=== PATIENT | female | born 1995 | race Caucasian/White ===

== ENCOUNTER → 2017-07-21 09:23 | Outpatient (CLI) | payer BC, MEDICAID, SELFPAY ==
--- NOTE | 2017-07-21 09:28 | US_ITS ---
US transvaginal HISTORY: Pelvic pain ITS.REASON: check for cysts and reason for pain ORDERING PHYSICIAN: Chele Lee MD PATIENT AGE: 21 years COMPARISON: None FINDINGS: UTERUS: The uterus measures 8 x 3 x 4 cm. Combined endometrial thickness is 3 mm. No uterine mass or abnormal fluid collection RIGHT OVARY: 3 x 2 cm containing follicles and a 1.5 cm cyst. Blood flow is present. LEFT OVARY: 2 x 2 cm containing a 1.6 cm cyst with blood flow noted CUL-DE-SAC FLUID: No cul-de-sac fluid apparent OTHER FINDINGS: None IMPRESSION: Small bilateral ovarian cyst otherwise negative pelvic ultrasound
== END ==
PROVIDERS: Family Provider Internal Medicine Adolescent Medicine; PCP Nurse Practitioner Family; Visit Provider Nurse Practitioner Obstetrics & Gynecology
DX: R10.32 Left lower quadrant pain (principal); N83.209 Unspecified ovarian cyst, unspecified side
CPT/HCPCS: 76830

== ENCOUNTER → 2017-08-23 12:32 | Outpatient (CLI) | payer BC, MEDICAID, SELFPAY ==
[2017-08-23 13:17] LABS: Amphetamine/Metha Screen,Urine Negative ng/mL (<1000); Barbiturates Screen,Urine Negative ng/mL (<200); Benzodiazepines Screen,Urine Negative ng/mL (200); Cannabinoid Screen,Urine Negative ng/mL (<50); Cocaine Screen,Urine Negative ng/g (<300); Methadone Screen,Urine Negative ng/mL (<300); Opiate Screen,Urine Negative ng/mL (<300); Phencyclidine Screen,Urine Negative ng/mL (<25)
[2017-08-23 13:20] LABS: Hemoglobin A1C 5.5 % (0.0-7.0)
[2017-08-23 13:21] LABS: Alanine Aminotransferase 23 U/L (12-78); Albumin Level 3.5 gm/dL (3.4-5.0); Albumin/Globulin Ratio 0.9 (1.1-1.8); Alkaline Phosphatase 89 U/L (46-116); Anion Gap 13.2 mEq/L (5-15); Aspartate Amino Transferase 10 U/L (15-37); Bilirubin,Total 0.5 mg/dL (0.2-1.0); Blood Urea Nitrogen 13 mg/dL (7-18); Calcium 8.9 mg/dL (8.5-10.1); Carbon Dioxide 26 mmol/L (21.0-32.0); Chloride 106 mmol/L (98-107); Cholesterol 178 mg/dL (140-200); Creatinine,Serum 0.83 mg/dL (0.55-1.02); Estimated Glomerular Filt Rate 86 ml/min (>60); GFR (African American) 104 ML/MIN (>60); Globulin 4.1 gm/dl (1.3-3.2); Glucose 109 mg/dL (74-106); HDL Cholesterol 44 mg/dL (29-89); LDL Cholesterol 98 mg/dL (0-130); Potassium 4.2 mmoL/L (3.5-5.1); Sodium 141 mmol/L (136-145); Thyroid Stimulating Hormone 2.52 uIU/ml (0.358-3.740); Total Protein,Serum 7.6 gm/dL (6.4-8.2); Triglycerides 179 mg/dL (30-200); VLDL Cholesterol 36 mg/dL (0-40)
[2017-08-23 13:25] LABS: Basophils # 0.1 K/mm3 (0-0.2); Basophils % 0.6 % (0.1-2.0); Eosinophils # 0.2 K/mm3 (0.0-0.4); Eosinophils % 1.8 % (0.1-12.0); Hematocrit 43.7 % (37.0-47.0); Hemoglobin 13.7 g/dL (12.2-16.2); Lymphocytes # 2.3 K/mm3 (0.7-4.5); Lymphocytes % 27.8 K/mm3 (10-50); Mean Corpuscular HGB Conc 31.4 g/dL (31.8-35.4); Mean Corpuscular Hemoglobin 28.6 pg (27.0-31.2); Mean Corpuscular Volume 91.1 fl (81-99); Mean Platelet Volume 7.2 fl (7.4-10.4); Monocytes # 0.3 K/mm3 (0.1-1.0); Monocytes % 3.4 % (1.7-9.3); Neutrophils # 5.5 K/mm3 (1.8-7.8); Neutrophils % 66.4 % (37.0-80.0); Platelet Count 337 K/mm3 (142-424); Red Cell Distribution Width 13.5 % (11.5-17.5); White Blood Count 8.3 K/mm3 (4.8-10.8)
[2017-08-23 14:22] LABS: Urine Pregnancy, HCG Qual. Negative (Negative)
== END ==
PROVIDERS: PCP Internal Medicine Adolescent Medicine; Visit Provider Nurse Practitioner Psychiatric/Mental Health
DX: F33.0 Major depressive disorder, recurrent, mild (principal)
CPT/HCPCS: 36415; 80053; 80061; 80305; 81025; 83036; 84443; 85025

== ENCOUNTER → 2017-09-22 14:33 | Outpatient (CLI) | payer BC, MEDICAID, SELFPAY ==
--- NOTE | 2017-09-22 14:37 | XR_ITS ---
XR shoulder RT min 2V HISTORY: ITS.REASON: Right shoulder pain ORDERING PHYSICIAN: Christian Jacinto MD PATIENT AGE: 22 years COMPARISON: None FINDINGS: No fracture or dislocation. No lytic or blastic change. There is normal mineralization. The joint spaces are well-preserved. No significant degenerative/arthritic changes. No erosive changes evident. IMPRESSION: Negative, no acute finding
== END ==
PROVIDERS: PCP Internal Medicine Adolescent Medicine; Visit Provider Orthopaedic Surgery
DX: M25.511 Pain in right shoulder (principal)
CPT/HCPCS: 73030

== ENCOUNTER 2017-10-29 14:30 | Outpatient (RCR) | payer BC, MEDICAID, SELFPAY ==
--- NOTE | 2017-08-10 11:44 | HMH.PTOPEV ---
Rehab Outpatient Evaluation Rehab OP Evaluation Start: 08/10/17 11:29 Freq: Status: Active Protocol: Document 08/10/17 11:30 RMWILLIS (Rec: 08/10/17 11:43 [id number] Electronically Signed By Starla Robert OT 08/10/17 11:30 Outpatient Therapy Subjective History Subjective History Pt is a 21 year old female who reports to therapy for initial evaluation to right shoulder. Pt reports her pain and decreased AROM at right shoulder began on 07/29/17. Pt does not recall a specific injury causing pain or decreased function in right UE . Initially pt thought she had slept on the right shoulder in an awkward position, but the pain has continuously become worse. Pt also reports her arm and hand has swelled causing her fingers to turn purple . Pt did not appear to have much swelling today. Pt does demonstrate with decreased AROM and strength at Right shoulder. Pt will continue to be seen twice a week in order to address these deficits. Chief Complaint Pain Stiff Swelling Symptom Type Ache Throb Sharp Stabbing Burning Symptoms Relieved By Nothing Symptoms Aggravated By Physical Activity Lifting Prior Functional Limitations None Current Functional Limitations Reaching Lifting Housework Dressing Driving Sleeping Recreation Activity Symptom Description Constant and Continuous Constant but Variable Level of pain today (0-10) 6 Pain scale - at its best (0-10) 4 Pain scale - at its worst (0-10) 10 Shoulder/Elbow Eval Shoulder Objective Measurements Palpation Tenderness tenderness shoulder exam standard right tenderness over the bicipital tendon right shoulder exam stand
== END 2017-10-29 14:31 | disposition home or self-care (01) ==
LOC: OT 14:30
PROVIDERS: Family Provider Internal Medicine Adolescent Medicine; PCP Nurse Practitioner Family; Visit Provider Internal Medicine Adolescent Medicine
DX: M75.81 Other shoulder lesions, right shoulder (principal)
CPT/HCPCS: 97014; 97033; 97035; 97110; 97165; G0283

== ENCOUNTER → 2018-07-05 13:06 | Outpatient (POV) | payer BC, MEDICAID, SELFPAY | PROVIDERS: Visit Provider Dermatology | DX: Z00.00 Encounter for general adult medical examination without abnormal findings (principal) ==

== ENCOUNTER → 2018-08-31 13:24 | Outpatient (CLI) | payer BC, MEDICAID, SELFPAY ==
[2018-08-31 14:02] LABS: Basophils % 0.5 % (0.1-2.0); Eosinophils # 0.1 K/mm3 (0.0-0.4); Eosinophils % 1.7 % (0.1-12.0); Hematocrit 42.1 % (37.0-47.0); Hemoglobin 13.4 g/dL (12.2-16.2); Lymphocytes # 2.8 K/mm3 (0.7-4.5); Lymphocytes % 34.2 % (10-50); Mean Corpuscular HGB Conc 31.8 g/dL (31.8-35.4); Mean Corpuscular Hemoglobin 28.6 pg (27.0-31.2); Mean Corpuscular Volume 89.7 fl (81-99); Mean Platelet Volume 6.8 fl (7.4-10.4); Monocytes # 0.3 K/mm3 (0.1-1.0); Monocytes % 3.6 % (1.7-9.3); Neutrophils # 4.9 K/mm3 (1.8-7.8); Neutrophils % 60.1 % (37.0-80.0); Platelet Count 357 K/mm3 (142-424); Red Blood Count 4.69 M/mm3 (4.20-5.40); Red Cell Distribution Width 13.8 % (11.5-17.5); White Blood Count 8.2 K/mm3 (4.8-10.8)
[2018-08-31 14:59] LABS: Alanine Aminotransferase 25 U/L (12-78); Albumin Level 3.2 gm/dL (3.4-5.0); Albumin/Globulin Ratio 0.9 (1.1-1.8); Alkaline Phosphatase 87 U/L (46-116); Anion Gap 13.1 mEq/L (5-15); Aspartate Amino Transferase 17 U/L (15-37); Bilirubin,Total 0.6 mg/dL (0.2-1.0); Blood Urea Nitrogen 15 mg/dL (7-18); Carbon Dioxide 26 mmol/L (21.0-32.0); Chloride 106 mmol/L (98-107); Creatinine,Serum 0.77 mg/dL (0.55-1.02); Estimated Glomerular Filt Rate 93 ml/min (>60); GFR (African American) 112 ML/MIN (>60); Globulin 3.6 gm/dl (1.3-3.2); Glucose 102 mg/dL (74-106); Potassium 4.1 mmoL/L (3.5-5.1); Sodium 141 mmol/L (136-145); Thyroid Stimulating Hormone 4.09 uIU/ml (0.358-3.740); Total Protein,Serum 6.8 gm/dL (6.4-8.2)
== END ==
PROVIDERS: Visit Provider Nurse Practitioner Family
DX: R42 Dizziness and giddiness (principal); R06.02 Shortness of breath
CPT/HCPCS: 36415; 80053; 84443; 85025

== ENCOUNTER → 2018-10-28 13:18 | Outpatient (CLI) | payer BC, MEDICAID, SELFPAY ==
[2018-10-28 15:27] LABS: Thyroid Stimulating Hormone 2.87 uIU/ml (0.358-3.740)
== END ==
PROVIDERS: Visit Provider Nurse Practitioner Family
DX: R79.89 Other specified abnormal findings of blood chemistry (principal)
CPT/HCPCS: 36415; 84443

== ENCOUNTER → 2018-11-14 16:02 | Outpatient (CLI) | payer BC, MEDICAID, SELFPAY ==
--- NOTE | 2018-11-14 16:16 | XR_ITS ---
XR foot LT min 3V HISTORY: ITS.REASON: ORTEGA FOOT PAIN ORDERING PHYSICIAN: Jose Brunner MD PATIENT AGE: 23 years COMPARISON: None FINDINGS: No fracture or dislocation. No lytic or blastic change. There is normal mineralization.. The joint spaces are well-preserved. No significant degenerative/arthritic changes. No erosive changes evident. IMPRESSION: Negative, no acute finding
--- NOTE | 2018-11-14 16:16 | XR_ITS ---
XR foot RT min 3V HISTORY: ITS.REASON: OTREGA FOOT PAIN ORDERING PHYSICIAN: Jose Brunner MD PATIENT AGE: 23 years COMPARISON: None FINDINGS: No fracture or dislocation. No lytic or blastic change. There is normal mineralization.. The joint spaces are well-preserved. No significant degenerative/arthritic changes. No erosive changes evident. IMPRESSION: Negative, no acute finding
== END ==
PROVIDERS: PCP Internal Medicine Adolescent Medicine; Visit Provider Internal Medicine Adolescent Medicine
DX: M79.672 Pain in left foot (principal); M79.671 Pain in right foot
CPT/HCPCS: 73630

== ENCOUNTER → 2019-01-20 13:48 | Outpatient (CLI) | payer BC, MEDICAID, SELFPAY ==
[2019-01-20 15:46] LABS: HCG,Quantitative 0 mIU/mL
== END ==
PROVIDERS: Visit Provider Nurse Practitioner Family
DX: N91.2 Amenorrhea, unspecified (principal)
CPT/HCPCS: 36415; 84702

== ENCOUNTER → 2019-05-15 12:43 | Outpatient (CLI) | payer BC, OTHER, SELFPAY ==
[2019-05-16 10:32] LABS: Progesterone 0.6 ng/mL (.)
== END ==
PROVIDERS: Visit Provider Obstetrics & Gynecology
DX: E28.2 Polycystic ovarian syndrome (principal)
CPT/HCPCS: 36415; 84144

== ENCOUNTER → 2019-06-05 13:48 | Outpatient (CLI) | payer BC, OTHER, SELFPAY ==
[2019-06-08 05:21] LABS: Progesterone 21.3 ng/mL (.)
== END ==
PROVIDERS: Visit Provider Obstetrics & Gynecology
DX: N97.9 Female infertility, unspecified (principal)
CPT/HCPCS: 36415; 84144

== ENCOUNTER → 2019-07-03 14:47 | Outpatient (CLI) | payer BC, OTHER, SELFPAY ==
[2019-07-05 18:17] LABS: Progesterone 11.4 ng/mL (.)
== END ==
PROVIDERS: Visit Provider Obstetrics & Gynecology
DX: N97.9 Female infertility, unspecified (principal)
CPT/HCPCS: 36415; 84144

== ENCOUNTER → 2019-08-16 13:24 | Outpatient (CLI) | payer BC, OTHER, SELFPAY ==
--- NOTE | 2019-08-16 13:50 | US_ITS ---
PROCEDURE: US OB TRANSVAGINAL CLINICAL INDICATION: F/U ? ETOPIC PREG COMPARISON: US OB TRANSVAGINAL from 08/14/2019 FINDINGS: The uterus has an unremarkable appearance measuring 9 x 4 x 5 cm with a combined endometrial thickness of 1 cm. Previously endometrium measured 1.3 cm. No intrauterine gestational sac is evident. There remains a dominant right ovarian cyst at 5 cm. Blood flow is present in the right ovary. Small cysts are present in the left over the largest at 2 cm. Blood flow is present in the left ovary. There is a small amount of fluid in the cul-de-sac. IMPRESSION: No intrauterine gestational sac apparent. There remains a dominant right ovarian cyst with bilateral ovarian blood flow and a small amount of fluid in the cul-de-sac Dictated by: Darek Krishnamurthy MD 08/17/2019 13:15 Electronically signed by Darek Krishnamurthy MD in [place] 08/17/2019 13:15
[2019-08-16 15:11] LABS: HCG,Quantitative 53 mIU/ml (0-5.42)
== END ==
PROVIDERS: PCP Internal Medicine Adolescent Medicine; Visit Provider Emergency Medicine
DX: R10.32 Left lower quadrant pain (principal)
CPT/HCPCS: 36415; 76817; 84702

== ENCOUNTER → 2019-11-10 14:42 | Outpatient (CLI) | payer BC, OTHER, SELFPAY ==
[2019-11-12 07:45] LABS: Progesterone 12.2 ng/mL (.)
== END ==
PROVIDERS: Visit Provider Obstetrics & Gynecology
DX: Z00.00 Encounter for general adult medical examination without abnormal findings (principal)
CPT/HCPCS: 36415; 84144

== ENCOUNTER 2019-11-23 13:43 | Emergency (ER) | payer BC, OTHER, SELFPAY ==
[2019-11-23 13:45] VITALS: BP 144/84; PULSE 107; RESP 18; TEMP 36.7; O2SAT 97; BMI 40.2
--- NOTE | 2019-11-23 13:55 | HMH.EDGENADL ---
ED Disposition Clinical Impression: Cramping affecting , antepartum Disposition: Home, Self-Care Condition on Discharge: Good Additional Instructions: Follow-up with your road machine operator on Wednesday as scheduled. Return to the emergency room if any severe pain or heavy bleeding. Referrals: Jose Brunner MD [Primary Care Provider] - - Critical Care Critical Care Time: No Attestation: On 11/23/19, the high probability of a clinically significant, sudden or life threatening deterioration of the following system(s) required my full and direct attention, intervention and personal management. The time I documented below is in addition to time spent performing reported procedures but includes the following listed in this critical care notation. Medical Decision Making - Jim Inquiry Pt receiving controlled substance: No Vital Signs: 11/23/19 13:45 Temperature 98.1 F Temperature Source Oral Pulse Rate [Right] 107 H Respiratory Rate 18 Blood Pressure [Right Arm] 144/84 H Blood Pressure Mean [Right Arm] 104 02 Sat by Pulse Oximetry 97 - Lab Data Lab Results 11/23/19 13:54: Urine Color Yellow, Urine Appearance Clear, Urine pH 7.0, Ur Specific [place] 1.025, Urine Protein Negative, Urine Glucose (UA) Negative, Urine Ketones Trace, Urine Blood Negative, Urine Nitrate Negative, Urine Bilirubin Negative, Urine Urobilinogen 0.2, Ur Leukocyte Esterase Negative, Urine RBC Occasional, Urine WBC Occasional, Ur Squamous Epith Cells 3-5, Amorphous Sediment 1+, Urine Bacteria None 11/23/19 13:54: Urine HCG, Qual Positive 11/23/19 14:02: WBC 10.1, RBC 4.83, Hgb 14.3, Hct 42.5, MCV 88.0, MCH 29.6, MCHC 33.7, RDW 13.4, Plt Count 341, MPV 6.6 L, Neut % (Auto) 68.3, Lymph % (Auto) 27.8, [place] % (Auto) 2.6, Eos % (Auto) 0.8, Baso % (Auto) 0.6, Neut # (Auto) 6.9, Lymph # (Auto) 2.8, [place] # (Auto) 0.3, Eos # (Auto) 0.1, Baso # (Auto) 0.1 11/23/19 14:02: Sodium 138, Potassium 3.7, Chloride 107, Carbon Dioxide 22, Anion Gap 12.7, BUN 9, Creatinine 0.60, Estimated Creat Clear 228, Estimated GFR 123, Est GFR ( Amer) 149, Glucose 122 H, Calcium 9.3, Total Bilirubin 0.7, AST 26, ALT 22, Alkaline Phosphatase 95, Total Protein 7.1, Albumin 4.1, Globulin 3.0, Albumin/Globulin Ratio 1.4, HCG, Quant 309 H Result diagrams: 11/23/19 14:02 11/23/19 14:02 Orders (Tests/Meds): ORDERS Category Date Time Status US OB transvaginal Stat Ultrasound 11/23/19 14:31 Taken - US Data US Images: Pelvis Findings Narrative: As per [facility] procedure, ultrasound report received from fresh foods technician: Negative, nothing in endometrium, no signs of ectopic General Adult HPI - General Stated complaint: 5 weeks preg some cramping low grade fever Time Seen by Provider: 11/23/19 13:55 - History of Present Illness HPI narrative: Patient states she is 5 weeks gestation . Pelvic cramping that started about 2 nights ago. No bleeding. Has a sensation of vaginal pressure. Also noted temperature of 99.3 for the past day. No URI symptoms or UTI symptoms. 3, para 1, recent miscarriage in August. States that she called her road machine operator in [place], she has an appointment on Wednesday, but was told to come into the emergency room to be checked. - Related Data Home Medications Medication Instructions Recorded Confirmed trazodone 50 mg tablet 100 mg PO QHS 09/22/17 03/31/19 lamotrigine 100 mg tablet 100 mg PO BID #60 tab 12/08/18 03/31/19 Allergies Allergy/AdvReac Type Severity Reaction Status Date / Time prochlorperazine Allergy Unknown Verified 04/10/19 10:52 [From Compazine] promethazine Allergy Unknown Verified 04/10/19 10:52 [facility] History - Hepatitis A Screen Attestation statement:: This patient has been screened for Hepatitis A risk factors. I have reviewed the patient's past medical history: Yes Medical History: Reports:: Anxiety, Asthma, Depression Denies:: Cancer, Diabetes Mellitu
[2019-11-23 14:14] LABS: Microscopic, Urine URINE MICROSCOPIC (MICROSCOPIC)
[2019-11-23 14:16] LABS: Appearance,Urine CLEAR (Clear); Bilirubin,Urine Negative (Negative); Blood, Urine Negative (Negative); Color,Urine YELLOW (Yellow); Glucose,Urine (UA) Negative (Negative); Ketones,Urine TRACE (Negative); Leukocyte Esterase,Urine Negative (Negative); Nitrate,Urine Negative (Negative); Protein,Urine Negative (Negative); Specific Gravity, Urine 1.025 (1.005-1.030); Urobilinogen,Urine 0.2 EU/dl (0.2)
[2019-11-23 14:17] LABS: Urine Pregnancy, HCG Qual. Positive (Negative)
[2019-11-23 14:20] LABS: Chloride 107 mmol/L (98-107); Potassium 3.7 mmoL/L (3.5-5.1); Sodium 138 mmol/L (136-145)
[2019-11-23 14:21] LABS: Basophils # 0.1 K/mm3 (0-0.2); Basophils % 0.6 % (0.1-2.0); Eosinophils # 0.1 K/mm3 (0.0-0.4); Eosinophils % 0.8 % (0.1-12.0); Hematocrit 42.5 % (37.0-47.0); Hemoglobin 14.3 g/dL (12.2-16.2); Lymphocytes # 2.8 K/mm3 (0.7-4.5); Lymphocytes % 27.8 % (10-50); Mean Corpuscular HGB Conc 33.7 g/dL (31.8-35.4); Mean Corpuscular Hemoglobin 29.6 pg (27.0-31.2); Mean Platelet Volume 6.6 fl (7.4-10.4); Monocytes # 0.3 K/mm3 (0.1-1.0); Monocytes % 2.6 % (1.7-9.3); Neutrophils # 6.9 K/mm3 (1.8-7.8); Neutrophils % 68.3 % (37.0-80.0); Platelet Count 341 K/mm3 (142-424); Red Blood Count 4.83 M/mm3 (4.20-5.40); Red Cell Distribution Width 13.4 % (11.5-17.5); White Blood Count 10.1 K/mm3 (4.8-10.8)
[2019-11-23 14:22] LABS: Blood Urea Nitrogen 9 mg/dl (7-17); Creatinine Clearance Estimated 228 mL/min (50-200); Estimated Glomerular Filt Rate 123 ml/min (>60); GFR (African American) 149 ML/MIN (>60)
[2019-11-23 14:23] LABS: Alanine Aminotransferase 22 U/L (12-78); Albumin Level 4.1 g/dl (3.5-5.0); Albumin/Globulin Ratio 1.4 (1.1-1.8); Alkaline Phosphatase 95 U/L (38-126); Anion Gap 12.7 mEq/L (5-15); Aspartate Amino Transferase 26 U/L (14-36); Bilirubin,Total 0.7 mg/dl (0.2-1.3); Calcium 9.3 mg/dl (8.4-10.2); Carbon Dioxide 22 mmol/L (22.0-30.0); Glucose 122 mg/dl (74-100); Total Protein,Serum 7.1 g/dl (6.3-8.2)
[2019-11-23 14:26] LABS: Amorphous Sediment,Urine 1+ /lpf; RBC,Urine Occasional #/hpf (0-3); WBC,Urine Occasional #/hpf (0-3)
--- NOTE | 2019-11-23 14:31 | US_ITS ---
PROCEDURE: US OB TRANSVAGINAL CLINICAL INDICATION: cramping, , r/o ectopic COMPARISON: US OB TRANSVAGINAL from 08/16/2019 FINDINGS: No intrauterine gestational sac is evident. The endometrium is thickened 15 mm. The left ovary is 3.7 x 3.5 cm and contains a 16 mm complex cyst and other small follicles. Blood flow is present. Right ovary is 3 2 cm. Blood flow noted. No cul-de-sac fluid evident IMPRESSION: No intrauterine gestation apparent. In may be too early to see an intrauterine gestation. The endometrium is thickened. Recommend serial beta HCGs as well as follow-up ultrasound. Dictated by: Darek Krishnamurthy MD 11/23/2019 16:35 Electronically signed by Darek Krishnamurthy MD in [place] 11/23/2019 16:35
[2019-11-23 14:40] LABS: HCG,Quantitative 309 mIU/ml (0-5.42)
--- NOTE | 2019-11-23 14:52 | PC.NURSE ---
Pt to US
[2019-11-23 15:48] VITALS: BP 132/85; PULSE 100; RESP 20; TEMP 36.8; O2SAT 98
== END 2019-11-23 15:49 | disposition home or self-care (01) ==
PROVIDERS: Emergency Provider Emergency Medicine; PCP Internal Medicine Adolescent Medicine
DX: O26.899 Other specified pregnancy related conditions, unspecified trimester (principal); F41.8 Other specified anxiety disorders
CPT/HCPCS: 76817; 80053; 81001; 81025; 84702; 85025; 99283

== ENCOUNTER 2019-12-09 00:09 | Emergency (ER) | payer BC, OTHER, SELFPAY ==
[2019-12-09 00:18] VITALS: BP 128/82; PULSE 109; RESP 16; TEMP 37; O2SAT 97; BMI 41.5
[2019-12-09 00:27] LABS: Microscopic, Urine URINE MICROSCOPIC (MICROSCOPIC)
[2019-12-09 00:32] LABS: Appearance,Urine CLEAR (Clear); Bilirubin,Urine Negative (Negative); Blood, Urine 1+ (Negative); Color,Urine YELLOW (Yellow); Glucose,Urine (UA) Negative (Negative); Ketones,Urine Negative (Negative); Leukocyte Esterase,Urine TRACE (Negative); Nitrate,Urine Negative (Negative); Protein,Urine Negative (Negative); Urine Pregnancy, HCG Qual. Positive (Negative); Urobilinogen,Urine 0.2 EU/dl (0.2)
--- NOTE | 2019-12-09 00:38 | US_ITS ---
PROCEDURE: US OB TRANSVAGINAL Patient Age:24Y CLINICAL INDICATION: Vag bleeding w/ cramping COMPARISON: US OB TRANSVAGINAL from 11/23/2019 FINDINGS: Single early viable intrauterine gestation.. Yolk sac embryo heart flicker noted and documented. CRL = 0.44 cm = 6 weeks 1 day. Heart rate = 109 BPM. Yolk sac 0.43 cm. Average ultrasound age = 6 weeks 1 day With this the ultrasound DAWN = 08/02/2020 Gestational age = 7 weeks 0 day. Based on LMP 10/21/2019 Right ovary appears normal. 2.3 x 1.7 x 2.4 cm Left ovary 2.9 x 2.65 x 2.6 cm. Normal size with Probable corpus luteum cyst noted left ovary of measures up to 1.4 cmx 1.32 x 1.26 cm. Good flow to both ovaries. No free fluid cul-de-sac. Uterus appears normal in size with cervix long and closed..-the gestational sac appears to be towards superior portion of the uterus .. IMPRESSION: Early single viable intrauterine gestation. Average Ultrasound Age /& CRL = 6 weeks 1 day Ovaries appear normal with normal blood flow Probable corpus luteum cyst measure up to 1.4 cm at left ovary Dictated by: Suleman Dowling MD 12/10/2019 18:34 Electronically signed by Suleman Dowling MD in [place] 12/10/2019 18:34
--- NOTE | 2019-12-09 00:41 | HMH.EDPREG ---
ED Disposition Clinical Impression: Qualifiers: Weeks of gestation: less than 8 weeks Qualified Code(s): Z3A.01 - Less than 8 weeks gestation of Disposition: Home, Self-Care Condition on Discharge: Good Instructions: DI for Vaginal Bleeding During Additional Instructions: see ob for follow up Referrals: Jose Brunner MD [Primary Care Provider] - - Critical Care Critical Care Time: No Attestation: On 12/09/19, the high probability of a clinically significant, sudden or life threatening deterioration of the following system(s) required my full and direct attention, intervention and personal management. The time I documented below is in addition to time spent performing reported procedures but includes the following listed in this critical care notation. Medical Decision Making - Medical Records Medical records reviewed: Yes: I reviewed the patient's medical records. - Jim Inquiry Pt receiving controlled substance: No Vital Signs: 12/09/19 00:18 Temperature 98.6 F Temperature Source Oral Pulse Rate [Right] 109 H Respiratory Rate 16 Blood Pressure [Right Arm] 128/82 Blood Pressure Mean [Right Arm] 97 Blood Pressure Source [Right Arm] Automatic Cuff Blood Pressure Position [Right Arm] Sitting 02 Sat by Pulse Oximetry 97 Oxygen Delivery Method Room Air - Lab Data Lab results reviewed: Yes: I reviewed the patient's lab results. Lab Results 12/09/19 00:20: Urine Color Yellow, Urine Appearance Clear, Urine pH 6.0, Ur Specific [place] 1.020, Urine Protein Negative, Urine Glucose (UA) Negative, Urine Ketones Negative, Urine Blood 1+, Urine Nitrate Negative, Urine Bilirubin Negative, Urine Urobilinogen 0.2, Ur Leukocyte Esterase Trace, Urine RBC 5-10, Urine WBC 10-20, Ur Squamous Epith Cells 5-10 12/09/19 00:20: Urine HCG, Qual Positive 12/09/19 00:36: WBC 10.5, RBC 4.37, Hgb 13.1, Hct 38.8, MCV 88.7, MCH 29.9, MCHC 33.8, RDW 13.4, Plt Count 307, MPV 7.1 L, Neut % (Auto) 57.6, Lymph % (Auto) 36.1, [place] % (Auto) 3.7, Eos % (Auto) 2.1, Baso % (Auto) 0.5, Neut # (Auto) 6.1, Lymph # (Auto) 3.8, [place] # (Auto) 0.4, Eos # (Auto) 0.2, Baso # (Auto) 0.1 12/09/19 00:36: Sodium 135 L, Potassium 3.7, Chloride 103, Carbon Dioxide 25, Anion Gap 10.7, BUN 8, Creatinine 0.60, Estimated Creat Clear 109, Estimated GFR 123, Est GFR ( Amer) 149, Glucose 121 H, Calcium 9.4, Total Bilirubin 0.3, AST 19, ALT 16, Alkaline Phosphatase 89, Total Protein 6.7, Albumin 4.2, Globulin 2.5, Albumin/Globulin Ratio 1.7, HCG, Quant [id number] H Result diagrams: 12/09/19 00:36 12/09/19 00:36 Orders (Tests/Meds): ORDERS Category Date Time Status Urine Culture Stat Micro 12/09/19 00:20 Received US OB transvaginal Stat Ultrasound 12/09/19 00:38 Ordered - US Data US Images: Pelvis ED US Reviewed: Yes: I discussed the US results w/the radiologist Findings Narrative: iup 6 weeks 1 day HPI - General Chief complaint: Vaginal Bleeding Stated complaint: 7 Weeks bleeding and cramping Time Seen by Provider: 12/09/19 00:30 Mode of Arrival: Ambulatory Source of Information: Patient, Medical Record Limitations: No Limitations Description of Symptoms (Recalled from ER Triage Doc. by RN): Pt states she has blood when she wipes, states she is 7weeks preg. - History of Present Illness HPI Narrative: pt with blood on tissue MD Complaint: vaginal bleeding Onset (ago): hour(s) Consistency: intermittent Severity: mild Associated symptoms: denies other symptoms Vaginal bleeding: light : yes Date of Last Menstrual Period: na - Related Data Blood Type: O (+) positive Para: 1 Home Medications Medication Instructions Recorded Confirmed Prenat 115/Iron Fum/Folic/Dss 1 each PO DAILY 12/09/19 12/09/19 [ 19 Tablet] Allergies Allergy/AdvReac Type Severity Reaction Status Date / Time prochlorperazine Allergy Unknown Verified 04/10/19 10:52 [From Compazin
[2019-12-09 00:45] LABS: Basophils # 0.1 K/mm3 (0-0.2); Basophils % 0.5 % (0.1-2.0); Eosinophils # 0.2 K/mm3 (0.0-0.4); Eosinophils % 2.1 % (0.1-12.0); Hematocrit 38.8 % (37.0-47.0); Hemoglobin 13.1 g/dL (12.2-16.2); Lymphocytes # 3.8 K/mm3 (0.7-4.5); Lymphocytes % 36.1 % (10-50); Mean Corpuscular HGB Conc 33.8 g/dL (31.8-35.4); Mean Corpuscular Hemoglobin 29.9 pg (27.0-31.2); Mean Corpuscular Volume 88.7 fl (81-99); Mean Platelet Volume 7.1 fl (7.4-10.4); Monocytes # 0.4 K/mm3 (0.1-1.0); Monocytes % 3.7 % (1.7-9.3); Neutrophils # 6.1 K/mm3 (1.8-7.8); Neutrophils % 57.6 % (37.0-80.0); Platelet Count 307 K/mm3 (142-424); Red Blood Count 4.37 M/mm3 (4.20-5.40); Red Cell Distribution Width 13.4 % (11.5-17.5); White Blood Count 10.5 K/mm3 (4.8-10.8)
--- NOTE | 2019-12-09 00:55 | PC.NURSE ---
pt transported to radiology via wheelchair.
[2019-12-09 00:56] LABS: Alanine Aminotransferase 16 U/L (12-78); Albumin Level 4.2 g/dl (3.5-5.0); Albumin/Globulin Ratio 1.7 (1.1-1.8); Alkaline Phosphatase 89 U/L (38-126); Anion Gap 10.7 mEq/L (5-15); Aspartate Amino Transferase 19 U/L (14-36); Bilirubin,Total 0.3 mg/dl (0.2-1.3); Blood Urea Nitrogen 8 mg/dl (7-17); Calcium 9.4 mg/dl (8.4-10.2); Carbon Dioxide 25 mmol/L (22.0-30.0); Chloride 103 mmol/L (98-107); Creatinine Clearance Estimated 109 mL/min (50-200); Estimated Glomerular Filt Rate 123 ml/min (>60); GFR (African American) 149 ML/MIN (>60); Globulin 2.5 g/dL (1.3-3.2); Glucose 121 mg/dl (74-100); Potassium 3.7 mmoL/L (3.5-5.1); Sodium 135 mmol/L (136-145); Total Protein,Serum 6.7 g/dl (6.3-8.2)
[2019-12-09 01:13] LABS: HCG,Quantitative 7689 mIU/ml (0-5.42)
--- NOTE | 2019-12-09 01:18 | PC.NURSE ---
pt returned from ultrasound.
--- NOTE | 2019-12-09 01:25 | PC.NURSE ---
RANDALL TEMPLETON AT BEDSIDE.
[2019-12-09 01:34] VITALS: BP 126/76; PULSE 98; RESP 16; TEMP 37; O2SAT 98
== END 2019-12-09 01:37 | disposition home or self-care (01) ==
PROVIDERS: Emergency Provider Emergency Medicine; PCP Internal Medicine Adolescent Medicine
DX: O20.9 Hemorrhage in early pregnancy, unspecified (principal); Z3A.01 Less than 8 weeks gestation of pregnancy; F41.8 Other specified anxiety disorders; J45.909 Unspecified asthma, uncomplicated
CPT/HCPCS: 76817; 80053; 81001; 81025; 84702; 85025; 87086; 99283

== ENCOUNTER 2019-12-19 12:12 | Emergency (ER) | payer BC, OTHER, SELFPAY ==
[2019-12-19 12:13] VITALS: BP 156/95; PULSE 108; RESP 18; TEMP 37.1; O2SAT 96; BMI 40.8
[2019-12-19 12:31] LABS: Microscopic, Urine URINE MICROSCOPIC (MICROSCOPIC)
[2019-12-19 12:33] LABS: Appearance,Urine CLEAR (Clear); Bilirubin,Urine Negative (Negative); Blood, Urine 3+ (Negative); Color,Urine YELLOW (Yellow); Glucose,Urine (UA) Negative (Negative); Ketones,Urine Negative (Negative); Leukocyte Esterase,Urine 1+ (Negative); Nitrate,Urine Negative (Negative); Protein,Urine Negative (Negative); Specific Gravity, Urine 1.025 (1.005-1.030); Urobilinogen,Urine 0.2 EU/dl (0.2)
--- NOTE | 2019-12-19 12:41 | PC.NURSE ---
labs drawn and sent.
[2019-12-19 12:53] LABS: Amorphous Sediment,Urine Trace /lpf; Squamous Epithelial Cell,Urine 20-50 #/hpf (0-5)
[2019-12-19 12:56] VITALS: BP 121/79; PULSE 101
[2019-12-19 12:56] LABS: Basophils % 0.3 % (0.1-2.0); Eosinophils # 0.2 K/mm3 (0.0-0.4); Hematocrit 39.3 % (37.0-47.0); Hemoglobin 13.6 g/dL (12.2-16.2); Lymphocytes # 2.7 K/mm3 (0.7-4.5); Lymphocytes % 30.1 % (10-50); Mean Corpuscular HGB Conc 34.6 g/dL (31.8-35.4); Mean Corpuscular Hemoglobin 30.2 pg (27.0-31.2); Mean Corpuscular Volume 87.2 fl (81-99); Mean Platelet Volume 6.9 fl (7.4-10.4); Monocytes # 0.3 K/mm3 (0.1-1.0); Monocytes % 3.2 % (1.7-9.3); Neutrophils # 5.7 K/mm3 (1.8-7.8); Neutrophils % 64.4 % (37.0-80.0); Platelet Count 352 K/mm3 (142-424); Red Cell Distribution Width 13.6 % (11.5-17.5); White Blood Count 8.8 K/mm3 (4.8-10.8)
--- NOTE | 2019-12-19 13:03 | HMH.EDGENADL ---
ED Disposition Clinical Impression: Threatened miscarriage in early Disposition: Home, Self-Care Condition on Discharge: Good Instructions: DI for Threatened Additional Instructions: You have been evaluated for vaginal spotting in early . This could be a threatened miscarriage. Please follow-up with your A P MANAGER tomorrow as scheduled. You have incidentally been found to have bacteria in your urine. Please take Macrobid as prescribed. Prescriptions: Nitrofurantoin Monohyd/M-Cryst [Nitrofurantoin Reagan-Mcr 100 mg] 100 mg PO BID 5 Days #10 cap Prescription Printed Referrals: Jose Brunner MD [Primary Care Provider] - Time of Disposition: 13:48 - Critical Care Critical Care Time: No Attestation: On 12/19/19, the high probability of a clinically significant, sudden or life threatening deterioration of the following system(s) required my full and direct attention, intervention and personal management. The time I documented below is in addition to time spent performing reported procedures but includes the following listed in this critical care notation. Medical Decision Making - Medical Records Medical records reviewed: Yes: I reviewed the patient's medical records. - Jim Inquiry Pt receiving controlled substance: No Vital Signs: 12/19/19 12:13 12/19/19 12:56 12/19/19 14:50 Temperature 98.7 F 98.0 F Temperature Source Oral Oral Pulse Rate 101 H Pulse Rate [Right] 108 H 101 H Respiratory Rate 18 18 Blood Pressure 121/79 Blood Pressure [Right Arm] 156/95 H 121/79 Blood Pressure Mean [Right Arm] 115 93 Blood Pressure Source Automatic Cuff Blood Pressure Source [Right Arm] Automatic Cuff Blood Pressure Position Supine Blood Pressure Position [Right Arm] Supine 02 Sat by Pulse Oximetry 96 Oxygen Delivery Method Room Air Room Air - Lab Data Lab Results 12/19/19 12:20: Urine Color Yellow, Urine Appearance Clear, Urine pH 6.0, Ur Specific [place] 1.025, Urine Protein Negative, Urine Glucose (UA) Negative, Urine Ketones Negative, Urine Blood 3+, Urine Nitrate Negative, Urine Bilirubin Negative, Urine Urobilinogen 0.2, Ur Leukocyte Esterase 1+ A, Urine RBC 10-20, Urine WBC 10-20, Ur Squamous Epith Cells 20-50, Ur Renal Epithelial Cell 5-10, Amorphous Sediment Trace 12/19/19 12:37: WBC 8.8, RBC 4.50, Hgb 13.6, Hct 39.3, MCV 87.2, MCH 30.2, MCHC 34.6, RDW 13.6, Plt Count 352, MPV 6.9 L, Neut % (Auto) 64.4, Lymph % (Auto) 30.1, [place] % (Auto) 3.2, Eos % (Auto) 2.0, Baso % (Auto) 0.3, Neut # (Auto) 5.7, Lymph # (Auto) 2.7, [place] # (Auto) 0.3, Eos # (Auto) 0.2, Baso # (Auto) 0.0 12/19/19 12:37: Serum HCG, Qual Positive 12/19/19 12:37: HCG, Quant [id number] H Result diagrams: 12/19/19 12:37 Orders (Tests/Meds): ORDERS Category Date Time Status Urine Culture Stat Micro 12/19/19 12:20 Received Medical Decision Narrative: In summary this is a 24-year-old female presenting to the emergency department with lower abdominal cramping and vaginal spotting. Patient is tearful on arrival, slightly tachycardic and hypertensive. I believe this is due to anxiety. She was 6weeks by dates, doubt pre-eclampsia. Will obtain urine to assess for protein. Differential diagnoses include threatened miscarriage, hemorrhagic cystitis, urinary tract infection, implantation bleed, normal intrauterine . Given that patient is already had her confirmed by ultrasound, very low concern for an ectopic or heterotopic. Plan to obtain urinalysis and beta hCG. Urinalysis shows leukoesterase and few white blood cells. Will treat presumptively for asymptomatic bacteriuria, in the hopes that patient is still . No proteinuria. Other laboratory results unremarkable. No significant anemia. hCG positive. Patient counseled that this could be a threatened miscarriage. She currently does not have pain or significant bleeding. Scheduled to follow-up with her
[2019-12-19 13:08] LABS: HCG Qualitative, Serum Positive (Negative)
[2019-12-19 14:13] LABS: HCG,Quantitative 17659 mIU/ml (0-5.42)
[2019-12-19 14:50] VITALS: BP 121/79; PULSE 101; RESP 18; TEMP 36.7; O2SAT 98
== END 2019-12-19 14:51 | disposition home or self-care (01) ==
PROVIDERS: Emergency Provider Emergency Medicine; PCP Internal Medicine Adolescent Medicine
DX: O20.0 Threatened abortion (principal); Z3A.08 8 weeks gestation of pregnancy; J45.909 Unspecified asthma, uncomplicated
CPT/HCPCS: 81001; 84702; 84703; 85025; 87086; 99282; 99283

== ENCOUNTER 2020-05-19 09:58 | Emergency (ER) | payer BC, OTHER, SELFPAY ==
[2020-05-19 10:15] VITALS: BP 130/82; PULSE 98; RESP 14; TEMP 36.9; O2SAT 97; BMI 44.9
--- NOTE | 2020-05-19 10:48 | HMH.EDUTC ---
[facility] [place] Clinical Impression: Close exposure to COVID-19 virus Otitis media Qualifiers: Otitis media type: suppurative Chronicity: acute Laterality: right Recurrence: non-recurrent Spontaneous tympanic membrane rupture: without spontaneous rupture Qualified Code(s): H66.001 - Acute suppurative otitis media without spontaneous rupture of ear drum, right ear Disposition: Home, Self-Care Condition on Discharge: Good Instructions: Preventing the Spread of Coronavirus Discharge Instructions Additional Instructions: isolate until test results are known neg Prescriptions: cephALEXin [Keflex 500mg Cap] 500 mg PO BID 10 Days #20 cap Transmission Status: Pending to [id number] Referrals: Jose Brunner MD [Primary Care Provider] - Time of Disposition: 10:54 Medical Decision Making - Jim Inquiry Pt receiving controlled substance: No Vital Signs: 05/19/20 10:15 Temperature 98.5 F Temperature Source Oral Pulse Rate [Left Brachial] 98 H Respiratory Rate 14 Blood Pressure [Left Arm] 130/82 Blood Pressure Mean [Left Arm] 98 Blood Pressure Source [Left Arm] Automatic Cuff Blood Pressure Position [Left Arm] Sitting 02 Sat by Pulse Oximetry 97 Oxygen Delivery Method Room Air Orders (Tests/Meds): ORDERS Category Date Time Status Covid-19 Nasal PCR ([facility]) Routine Lab 05/19/20 10:13 Ordered [facility] [place] HPI - General Chief complaint: Urgent [facility] Stated complaint: covid exposure,SOA,sore throat,ear pain Time Seen by Provider: 05/19/20 10:49 Mode of Arrival: Ambulatory Source of Information: Patient Limitations: No Limitations Description of Symptoms (Recalled from Triage Doc. by RN): PATIENT REQUESTING COVID TEST D/T EXPOSURE. C/O COUGH, HEADACHE, DIARRHEA, AND NAUSEA X 1 WEEK HEENT Symptoms (Recalled from RN notes): No Resp Symptoms (Recalled from RN notes): No Skin Symptoms (Recalled from RN notes): No MS Symptoms (Recalled from RN notes): No Functional Status (Recalled from RN notes): WNL - History of Present Illness Provider Complaint: 24 yr old female presnets for covid test. pt had a exposer, states she has rt ear pain, soa( hx of asthma), sore throat and dirreaha for 4 days. - Related Data Home Medications Medication Instructions Recorded Confirmed Buspirone HCl [Buspar 5mg tablet] 5 mg PO DAILY 05/19/20 05/19/20 Escitalopram Oxalate [Lexapro] 20 mg PO DAILY 05/19/20 05/19/20 Previous Rx's Medication Instructions Recorded cephALEXin [Keflex 500mg Cap] 500 mg PO BID 10 Days #20 cap 05/19/20 Allergies Allergy/AdvReac Type Severity Reaction Status Date / Time prochlorperazine Allergy Unknown Verified 04/10/19 10:52 [From Compazine] promethazine Allergy Unknown Verified 04/10/19 10:52 - Worker's Comp Is this a Worker's Comp case?: No [facility] History - Hepatitis A Screen Drug use history?: No High risk sexual behaviors?: No History of sexually transmitted infection?: No Currently employed?: No Childcare worker?: No Do you have indoor plumbing?: Yes Do you have electricity?: Yes Attestation statement:: This patient has been screened for Hepatitis A risk factors. I have reviewed the patient's past medical history: Yes Medical History: Reports:: Anxiety, Asthma, Depression Denies:: Cancer, Diabetes Mellitus Type 1, Diabetes Mellitus Type 2, MRSA Comment: boardline personality disorder Other Surgeries: Yes: Amputation: No Fractures: No - Social History Smoking Status: Never smoker Alcohol Intake: never Substance Use Type: denies use Occupational Status: other Housing: house - Psychiatric History Pschychiatric History:: Reports:: Anxiety, Depression Family Hx:: Cancer, Diabetes, Thyroid Disorder, Anemia, Kidney Disease ROS Obtained: Yes All systems reviewed & no additional complaints, Yes Systems reviewed as appropriate & no additional complaints - Constitutional Constitutional: Reports system reviewed and no addition
[2020-05-19 11:04] VITALS: BP 130/82; PULSE 98; RESP 14; TEMP 36.9; O2SAT 97
== END 2020-05-19 11:05 | disposition home or self-care (01) ==
PROVIDERS: Emergency Provider Nurse Practitioner Family; PCP Internal Medicine Adolescent Medicine
DX: Z20.828 Contact with and (suspected) exposure to other viral communicable diseases (principal); H66.001 Acute suppurative otitis media without spontaneous rupture of ear drum, right ear; F41.8 Other specified anxiety disorders; Z79.899 Other long term (current) drug therapy
CPT/HCPCS: 99201; U0003

== ENCOUNTER → 2020-07-04 17:25 | Outpatient (CLI) | payer BC, OTHER, SELFPAY | PROVIDERS: PCP Internal Medicine Adolescent Medicine; Visit Provider Internal Medicine Adolescent Medicine | DX: G47.30 Sleep apnea, unspecified (principal); R06.83 Snoring; E66.9 Obesity, unspecified | CPT/HCPCS: 95806 ==

== ENCOUNTER 2020-07-14 17:37 | Emergency (ER) | payer BC, OTHER, SELFPAY ==
[2020-07-14 18:15] VITALS: BP 130/87; PULSE 84; RESP 14; TEMP 36.7; O2SAT 99; BMI 43.3
--- NOTE | 2020-07-14 18:40 | HMH.EDUTC ---
[facility] [place] Dis[place] Clinical Impression: Viral syndrome, Exposure to COVID-19 virus Pharyngitis Qualifiers: Pharyngitis/tonsillitis etiology: unspecified etiology Qualified Code(s): J02.9 - Acute pharyngitis, unspecified Disposition: Home, Self-Care Condition on Discharge: Good Instructions: DI for Pharyngitis/Tonsillopharyngitis -- Adult, Preventing the Spread of Coronavirus Discharge Instructions Additional Instructions: Drink plenty of fluids. Take tylenol for pain or fever. Return if you begin to have difficulty breathing. Follow up with your regular doctor. GO TO THE ER FOR ANY WORSENING SYMPTOMS Prescriptions: Benzonatate [Tessalon Perle 100mg Cap] 100 mg PO TIDP PRN #30 cap PRN Reason: Cough Transmission Status: Received by [id number] Azithromycin [Z-Bart 250mg Tab*] 250 mg PO UD DOSE PK #6 tab Transmission Status: Received by [id number] Referrals: Jayleen Leal APRN [Primary Care Provider] - Time of Disposition: 18:54 Medical Decision Making - Medical Records Medical records reviewed: No: I reviewed the patient's medical records. - Jim Inquiry Pt receiving controlled substance: No Vital Signs: 07/14/20 18:15 07/14/20 19:00 Temperature 98.0 F 98.0 F Temperature Source Oral Pulse Rate 84 Pulse Rate [Right Brachial] 84 Respiratory Rate 14 14 Blood Pressure 130/87 Blood Pressure [Right Arm] 130/87 Blood Pressure Mean [Right Arm] 101 Blood Pressure Source [Right Arm] Automatic Cuff Blood Pressure Position [Right Arm] Sitting 02 Sat by Pulse Oximetry 99 Oxygen Delivery Method Room Air [facility] [place] HPI - General Stated complaint: GUTIERREZ,fever.sick at stomach.covid test Time Seen by Provider: 07/14/20 18:40 Mode of Arrival: Ambulatory Source of Information: Patient Limitations: No Limitations Description of Symptoms (Recalled from Triage Doc. by RN): PATIENT C/O FEVER, CHILLS, VOMITING, HEADACHE AND RUNNY NOSE X 2 DAYS. REQUESTING COVID TEST HEENT Symptoms (Recalled from RN notes): Yes Resp Symptoms (Recalled from RN notes): No Skin Symptoms (Recalled from RN notes): No MS Symptoms (Recalled from RN notes): No Functional Status (Recalled from RN notes): WNL - History of Present Illness Provider Complaint: She states that for the past 3 days she has had a cough, low grade fever and nausea. She denies any known exposure to covid-19. - Related Data Home Medications Medication Instructions Recorded Confirmed Buspirone HCl [Buspar 5mg tablet] 5 mg PO DAILY 05/19/20 05/19/20 Escitalopram Oxalate [Lexapro] 20 mg PO DAILY 05/19/20 05/19/20 Previous Rx's Medication Instructions Recorded cephALEXin [Keflex 500mg Cap] 500 mg PO BID 10 Days #20 cap 05/19/20 Azithromycin [Z-Bart 250mg Tab*] 250 mg PO UD DOSE PK #6 tab 07/14/20 Benzonatate [Tessalon Perle 100mg 100 mg PO TIDP PRN #30 cap 07/14/20 Cap] Allergies Allergy/AdvReac Type Severity Reaction Status Date / Time prochlorperazine Allergy Unknown Verified 04/10/19 10:52 [From Compazine] promethazine Allergy Unknown Verified 04/10/19 10:52 - Worker's Comp Is this a Worker's Comp case?: No [facility] History - Hepatitis A Screen Drug use history?: No High risk sexual behaviors?: No History of sexually transmitted infection?: No Currently employed?: No Childcare worker?: No Do you have indoor plumbing?: Yes Do you have electricity?: Yes Attestation statement:: This patient has been screened for Hepatitis A risk factors. I have reviewed the patient's past medical history: Yes Medical History: Reports:: Anxiety, Asthma, Depression Denies:: Cancer, Diabetes Mellitus Type 1, Diabetes Mellitus Type 2, MRSA Comment: boardline personality disorder Other Surgeries: Yes: Amputation: No Fractures: No - Social History Smoking Status: Never smoker Alcohol Intake: never Substance Use Type: denies use Occupational Status: other Housing: house - Psychiatric History [facility]
[2020-07-14 19:00] VITALS: BP 130/87; PULSE 84; RESP 14; TEMP 36.7; O2SAT 99
== END 2020-07-14 19:03 | disposition home or self-care (01) ==
PROVIDERS: Emergency Provider Nurse Practitioner Family; PCP Nurse Practitioner Family
DX: Z20.822 Contact with and (suspected) exposure to COVID-19 (principal); B34.9 Viral infection, unspecified; J02.9 Acute pharyngitis, unspecified; F41.8 Other specified anxiety disorders; Z79.899 Other long term (current) drug therapy
CPT/HCPCS: 99202; G0463; U0003

== ENCOUNTER → 2020-08-12 11:41 | Outpatient (CLI) | payer BC, OTHER, SELFPAY ==
--- NOTE | 2020-08-12 12:22 | XR_ITS ---
PROCEDURE: XR FOOT WT BEARING LT 3V CLINICAL INDICATION: pain COMPARISON: CR FTR3 FOOT-RT-3 VIEWS from 02/08/2017 FINDINGS: No fracture or dislocation. No lytic or blastic change. There is normal mineralization. The joint spaces are well-preserved. No significant degenerative/arthritic changes. No erosive changes evident. Other findings:None. IMPRESSION: No acute findings. Dictated by: Darek Krishnamurthy MD 08/12/2020 14:34 Darek Krishnamurthy MD in [place] 08/12/2020 14:34
--- NOTE | 2020-08-12 12:22 | XR_ITS ---
PROCEDURE: XR FOOT WT BEARING RT 3V CLINICAL INDICATION: pain COMPARISON: CR FTR3 FOOT-RT-3 VIEWS from 02/08/2017 FINDINGS: No fracture or dislocation. No lytic or blastic change. There is normal mineralization. The joint spaces are well-preserved. No significant degenerative/arthritic changes. No erosive changes evident. Other findings:None. IMPRESSION: No acute findings. Dictated by: Darek Krishnamurthy MD 08/12/2020 14:34 Darek Krishnamurthy MD in [place] 08/12/2020 14:34
[2020-08-12 13:19] LABS: Coronavirus 19 IgG Antibody Negative (Negative); Coronavirus 19 IgM Antibody Negative (Negative)
== END ==
PROVIDERS: PCP Internal Medicine Adolescent Medicine; Visit Provider Nurse Practitioner Family
DX: Z01.818 Encounter for other preprocedural examination (principal); Z20.822 Contact with and (suspected) exposure to COVID-19; G47.33 Obstructive sleep apnea (adult) (pediatric); M79.672 Pain in left foot; M79.671 Pain in right foot
CPT/HCPCS: 36415; 73630; 86328; 95810

== ENCOUNTER 2020-08-20 09:49 | Emergency (ER) | payer BC, OTHER, SELFPAY ==
[2020-08-20 09:55] VITALS: BP 125/72; PULSE 103; RESP 20; TEMP 37.1; O2SAT 96; BMI 44.2
--- NOTE | 2020-08-20 10:29 | HMH.EDUTC ---
[facility] [place] Impression: Left shoulder pain Qualifiers: Chronicity: acute Qualified Code(s): M25.512 - Pain in left shoulder Disposition: Home, Self-Care Condition on Discharge: Good Instructions: Shoulder Tendinopathy, DI for Shoulder Tendinopathy Additional Instructions: Rest the extremity, Elevate the extremity as tolerated while you are resting. 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 Follow up with Dr. Prado (orthopedics) if you continue to have shoulder pain. I put in a referral but you need to call his office and schedule an appointment. Follow up with your regular doctor. GO TO THE ER FOR ANY WORSENING SYMPTOMS Referrals: Jose Brunner MD [Primary Care Provider] - Calvin Prado MD [Staff Physician] - Forms: Work/School Release Time of Disposition: 11:11 Medical Decision Making - Medical Records Medical records reviewed: No: I reviewed the patient's medical records. - Jim Inquiry Pt receiving controlled substance: No Vital Signs: 08/20/20 09:55 08/20/20 11:13 Temperature 98.7 F 98.7 F Temperature Source Oral Pulse Rate 103 H Pulse Rate [Right Brachial] 103 H Respiratory Rate 20 20 Blood Pressure 125/72 Blood Pressure [Right Arm] 125/72 Blood Pressure Mean [Right Arm] 89 Blood Pressure Source [Right Arm] Automatic Cuff Blood Pressure Position [Right Arm] Sitting 02 Sat by Pulse Oximetry 96 Oxygen Delivery Method Room Air - Radiology Data #1 Image(s): Shoulder Image Reviewed: Yes I reviewed the patient's radiology image, Yes I have reviewed radiologist's interpretation Preliminary Findings: Normal/NAD, No Fracture Seen PROCEDURE: XR SHOULDER LT MIN 2V CLINICAL INDICATION: PAIN COMPARISON: CR SHOULDCMRT XR shoulder RT min 2V from 09/22/2017 FINDINGS: No fracture or dislocation. No lytic or blastic change. There is normal mineralization. The joint spaces are well-preserved. No significant degenerative/arthritic changes. No erosive changes evident. Other findings:None. IMPRESSION: No acute findings. Dictated by: Darek Krishnamurthy MD 08/20/2020 11:28 Darek Krishnamurthy MD in [place] 08/20/2020 11:28 [facility] [place] - General Stated complaint: left shoulder, pain w/breathing&movement Time Seen by Provider: 08/20/20 10:29 - History of Present Illness Provider Complaint: She c/o left shoulder pain for the past 3 days. She denies any known injury. She states the pain is worse with moving the shoulder and deep breathing. She was started on steroids and meloxicam today by her wetlands conservation laborer for foot pain. - Related Data Home Medications Medication Instructions Recorded Confirmed Quetiapine Fumarate 50 mg PO QHS 08/20/20 08/20/20 Allergies Allergy/AdvReac Type Severity Reaction Status Date / Time prochlorperazine Allergy Unknown Verified 08/20/20 09:12 [From Compazine] promethazine Allergy Unknown Verified 08/20/20 09:12 [facility] History - Hepatitis A Screen Attestation statement:: This patient has been screened for Hepatitis A risk factors. I have reviewed the patient's past medical history: Yes Medical History: Reports:: Anxiety, Asthma, Depression Denies:: Cancer, Diabetes Mellitus Type 1, Diabetes Mellitus Type 2, MRSA Comment: boardline personality disorder Other Surgeries: Yes: , Dilation and Curettage Amputation: No Fractures: No Comment: oral surgery 2019 - Social History Smoking Status: Never smoker Alcohol Intake: never Substance Use Type: denies use Occupational Status: other Housing: house - Psychiatric History Pschychiatric History:: Reports:: Anxiety, Depression Family Hx:: Cancer, Diabetes, Thyroid Disorder, Anemia, Kidney Disease ROS Obtained: Yes All systems reviewed & no additional complaints - Constitutional Constitutional: Denies chills, Denies fever(s) - Musculoskeletal Musculoskeletal: Reports as per HPI - Integumentary/Breasts Skin/Breast: Denies r
--- NOTE | 2020-08-20 10:33 | XR_ITS ---
PROCEDURE: XR SHOULDER LT MIN 2V CLINICAL INDICATION: PAIN COMPARISON: CR SHOULDCMRT XR shoulder RT min 2V from 09/22/2017 FINDINGS: No fracture or dislocation. No lytic or blastic change. There is normal mineralization. The joint spaces are well-preserved. No significant degenerative/arthritic changes. No erosive changes evident. Other findings:None. IMPRESSION: No acute findings. Dictated by: Darek Krishnamurthy MD 08/20/2020 11:28 Darek Krishnamurthy MD in [place] 08/20/2020 11:28
[2020-08-20 11:13] VITALS: BP 125/72; PULSE 103; RESP 20; TEMP 37.1; O2SAT 96
== END 2020-08-20 11:16 | disposition home or self-care (01) ==
PROVIDERS: Emergency Provider Nurse Practitioner Family; PCP Internal Medicine Adolescent Medicine
DX: M25.512 Pain in left shoulder (principal); F41.8 Other specified anxiety disorders; J45.909 Unspecified asthma, uncomplicated; E66.9 Obesity, unspecified; Z68.41 Body mass index [BMI] 40.0-44.9, adult; Z79.899 Other long term (current) drug therapy
CPT/HCPCS: 73030; 99202; G0463

== ENCOUNTER → 2020-09-30 15:03 | Outpatient (CLI) | payer BC, OTHER, SELFPAY ==
[2020-09-30 16:56] VITALS: BMI 43.7
== END ==
PROVIDERS: PCP Internal Medicine Adolescent Medicine; Visit Provider Internal Medicine Adolescent Medicine
DX: Z71.3 Dietary counseling and surveillance (principal); E66.9 Obesity, unspecified; Z68.41 Body mass index [BMI] 40.0-44.9, adult
CPT/HCPCS: 97802

== ENCOUNTER 2020-10-07 11:00 | Outpatient (RCR) | payer BC, OTHER, SELFPAY ==
--- NOTE | 2020-09-05 11:54 | HMH.PTOPEV ---
PT Outpatient Evaluation Rehab PT Outpatient Evaluation Start: 09/05/20 11:34 Freq: Status: Active Protocol: Document 09/05/20 11:34 MEERA (Rec: 09/05/20 11:54 MEERA [id number]) Electronically Signed By Marshall Hernandez, PT 09/05/20 11:34 Outpatient Therapy Subjective History Subjective History Pt reports h/o chronic B plantar fasciitis for ~2 yrs. Pt reports steroid injections were benficial in 2019, however, recnt injections on 'did not seem to help'. Pt reports B heel area pain with referred pain into arches, with 'twitching and shooting pain'. Chief Complaint Pain Symptom Type Ache,Dull Symptoms Relieved By Rest/Positioning,Ice Symptoms Aggravated By Standing,Walking Prior Functional Limitations Standing,Walking Current Functional Limitations Standing,Walking Symptom Description Constant but Variable Level of pain today (0-10) 6 Pain scale - at its best (0-10) 5 Pain scale - at its worst (0-10) 8 Ankle/Foot Eval Gait Observation General Gait Pattern Observation Antalgic Gait Assistive Device Ambulation Assistive Device None Palpation Tenderness bilateral Ankle/Foot Palpation Findings Tenderness Ankle/Foot Palpation Overall Comment 3/4 bilateral plantar fascia insertion ROM Ankle/Foot Dorsiflexion w/Knee Extended 0-5 Active Range Motion (degrees) Ankle/Foot Plantar Flexion Active Range 0-70 of Motion (degrees) Ankle/Foot Eversion Active Range of 0-12 Motion (degrees) Ankle/Foot Inversion Active Range of 0-65 Motion (degrees) MMT Ankle Dorsiflexion Strength Grade 5 Normal Ankle Plantarflexion Strength Grade 5 Normal Foot Eversion Strength Grade 4 Good Foot Inversion Strength Grade 4 Good Outpatient Therapy Assessment Impairments Problems/Impairmments Palpation Tenderness,Impaired Range of Motion,Impaired Strength,Impaired Gait Pattern ,Impaired Walking,Impaired Standing,Subjective C/O Pain, Impaired Self Care/Self Management Prognosis Rehab Potential Fair Clinical Impression Consistent with Diagnosis Yes Short Term Goals Number of Weeks 4 Decreased Palpation Tenderness Yes: 1-2/4 Increase Strength Yes: 4+/5 Increase Ability to Walk Yes: 30min Increase Ability to [place]
--- NOTE | 2020-10-03 14:54 | HMH.RHREAS ---
Rehab Reassessment Rehab OP Re-assessment Start: 10/03/20 14:18 Freq: Status: Active Protocol: Document 10/03/20 14:18 MARIANGELYESICA (Rec: 10/03/20 14:53 MEERA [id number]) Electronically Signed By Marshall Hernandez, PT 10/03/20 14:18 Rehab Re-assessment Subjective Subjective PT REPORTS 0-2/10 B FOOT/HEEL PAIN ON VAS, AND FEELS 80-85% BETTER SINCE I EVAL Objective Objective Notes AROM: B DF 0-10, B PF 0-70, B INV 0-65, B EVR 0-15 MMT: DF 5/5, PF 5/5, INV 4-4+/ 5, EVR 4-4+/5 TTP: 1-2/4 B PLANTAR FASCIA Assessment Progress Assessment Progressing as Expected Assessment Notes IMPROVED ROM, STRENGTH, AND TTP Patient goals met STG'S 10/17 LTG'S 09/20 Goals Not Met STG'S 06/19, LTG'S 10/20 Plan Plan PT TO CONT. W/SKILLED P.T. TO MAKE FURTHER IMPROVEMENTS IN ROM, STRENGTH, AND TTP TO ALLOW FOR OPTIMAL FUNCTION Frequency of Therapy 2-3X/WK Duration of therapy 4-6WKS Time and Billing Re-Eval Time 15 Re-Eval Billing Units 1 PHYSICIAN CERTIFICATION: I certify the specified therapy services for Martha Chalres are required, authorized, and reviewed every 30 days.
== END 2020-10-07 11:05 | disposition home or self-care (01) ==
LOC: PT 11:00
PROVIDERS: PCP Internal Medicine Adolescent Medicine; Visit Provider Podiatrist
DX: M72.2 Plantar fascial fibromatosis; M79.671 Pain in right foot; M79.672 Pain in left foot
CPT/HCPCS: 20560; 97010; 97014; 97033; 97035; 97110; 97140; 97163; 97164; G0283

== ENCOUNTER → 2020-10-14 18:32 | Outpatient (CLI) | payer BC, OTHER, SELFPAY | PROVIDERS: PCP Internal Medicine Adolescent Medicine; Visit Provider Nurse Practitioner Family | DX: G47.33 Obstructive sleep apnea (adult) (pediatric) (principal); R00.0 Tachycardia, unspecified; R06.02 Shortness of breath; R53.83 Other fatigue | CPT/HCPCS: 94762 ==

== ENCOUNTER 2020-10-15 07:34 | Emergency (ER) | payer BC, OTHER, SELFPAY ==
[2020-10-15 07:35] VITALS: BP 127/81; PULSE 82; RESP 16; TEMP 37; O2SAT 98; BMI 42.5
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
[2020-10-15 08:15] VITALS: BP 110/74; PULSE 78; RESP 16; TEMP 36.6; O2SAT 98
== END 2020-10-15 08:16 | disposition home or self-care (01) ==
PROVIDERS: Emergency Provider Emergency Medicine; PCP Internal Medicine Adolescent Medicine
DX: M54.6 Pain in thoracic spine (principal); X50.0XXA Overexertion from strenuous movement or load, initial encounter; Y92.019 Unspecified place in single-family (private) house as the place of occurrence of the external cause; J45.901 Unspecified asthma with (acute) exacerbation; F41.8 Other specified anxiety disorders; Z79.899 Other long term (current) drug therapy; Z88.8 Allergy status to other drugs, medicaments and biological substances
CPT/HCPCS: 99281

== ENCOUNTER 2020-10-19 15:39 | Emergency (ER) | payer BC, OTHER, SELFPAY ==
[2020-10-19 16:13] VITALS: BP 131/79; PULSE 95; RESP 17; TEMP 36.9; O2SAT 98; BMI 44.6
--- NOTE | 2020-10-19 16:24 | HMH.EDUTC ---
[facility] [place] Disposition Clinical Impression: Asthma exacerbation Qualifiers: Asthma severity: unspecified severity Asthma persistence: unspecified Qualified Code(s): J45.901 - Unspecified asthma with (acute) exacerbation Disposition: Home, Self-Care Condition on Discharge: Good Instructions: Asthma -- Adult, DI for Asthma -- Adult Additional Instructions: Drink plenty of fluids. Take tylenol or ibuprofen for pain or fever. Take the medications as directed. Follow up with your regular doctor. GO TO THE ER FOR ANY WORSENING SYMPTOMS Prescriptions: Brompheniramine/Pseudoephed/Dm [Bromfed Dm Cough Syrup] 5 ml PO Q6HP PRN #240 syrup PRN Reason: Cough Transmission Status: Received by [facility] Cefdinir [Omnicef 300mg Capsule] 300 mg PO BID #20 cap Transmission Status: Received by [facility] predniSONE [Prednisone 20mg Tab] 20 mg PO BID 5 Days #10 tab Transmission Status: Received by [facility] Referrals: Jose Brunner MD [Primary Care Provider] - Time of Disposition: 16:51 Medical Decision Making - Medical Records Medical records reviewed: No: I reviewed the patient's medical records. - Jim Inquiry Pt receiving controlled substance: No Vital Signs: 10/19/20 16:13 10/19/20 16:52 Temperature 98.5 F 98.5 F Temperature Source Oral Pulse Rate 95 H Pulse Rate [Left] 95 H Respiratory Rate 17 17 Blood Pressure 131/79 Blood Pressure [Right Arm] 131/79 Blood Pressure Mean [Right Arm] 96 Blood Pressure Source [Right Arm] Automatic Cuff Blood Pressure Position [Right Arm] Sitting 02 Sat by Pulse Oximetry 98 Oxygen Delivery Method Room Air [facility] [place] HPI - General Stated complaint: congestion, sob, drainage Time Seen by Provider: 10/19/20 16:37 Mode of Arrival: Ambulatory Source of Information: Patient Limitations: No Limitations Description of Symptoms (Recalled from Triage Doc. by RN): Trouble breathing x 2 weeks. Pt has hx of asthma and thinks its related HEENT Symptoms (Recalled from RN notes): No Resp Symptoms (Recalled from RN notes): Yes Skin Symptoms (Recalled from RN notes): No MS Symptoms (Recalled from RN notes): No Functional Status (Recalled from RN notes): wnl - History of Present Illness Provider Complaint: she states that she has had a cough and chest tightness for the past 2 weeks. She denies any fever/chills/body aches. She has a history of asthma. - Related Data Home Medications Medication Instructions Recorded Confirmed ziprasidone HCL [Ziprasidone HCl] 20 mg PO BID 10/15/20 10/15/20 Previous Rx's Medication Instructions Recorded Brompheniramine/Pseudoephed/Dm 5 ml PO Q6HP PRN #240 syrup 10/19/20 [Bromfed Dm Cough Syrup] Cefdinir [Omnicef 300mg Capsule] 300 mg PO BID #20 cap 10/19/20 predniSONE [Prednisone 20mg 20 mg PO BID 5 Days #10 tab 10/19/20 Tab] Allergies Allergy/AdvReac Type Severity Reaction Status Date / Time prochlorperazine Allergy Unknown Verified 10/19/20 16:18 [From Compazine] promethazine Allergy Unknown Verified 10/19/20 16:18 - Worker's Comp Is this a Worker's Comp case?: No [facility] History - Hepatitis A Screen Drug use history?: No High risk sexual behaviors?: No History of sexually transmitted infection?: No Currently employed?: No Childcare worker?: No Do you have indoor plumbing?: Yes Do you have electricity?: Yes Attestation statement:: This patient has been screened for Hepatitis A risk factors. I have reviewed the patient's past medical history: Yes Medical History: Reports:: Anxiety, Asthma, Depression, Migraine Denies:: Cancer, Diabetes Mellitus Type 1, Diabetes Mellitus Type 2, MRSA Other Medical History: Reports: Other Comment: boardline personality disorder Other Surgeries: Yes: , Dilation and Curettage Amputation: No Fractures: No Comment: oral surgery 2019 - Social History Smoking Status: Never smoker Alcohol Intake: never Subs
[2020-10-19 16:52] VITALS: BP 131/79; PULSE 95; RESP 17; TEMP 36.9; O2SAT 98
== END 2020-10-19 16:53 | disposition home or self-care (01) ==
PROVIDERS: Emergency Provider Nurse Practitioner Family; PCP Internal Medicine Adolescent Medicine
DX: J45.901 Unspecified asthma with (acute) exacerbation (principal)
CPT/HCPCS: 99202; G0463

== ENCOUNTER → 2020-10-25 10:23 | Outpatient (CLI) | payer BC, OTHER, SELFPAY ==
[2020-10-25 10:29] LABS: Adenovirus,PCR Not Detected (NotDetected); Bordetella Pertussis Not Detected (NotDetected); Chlamydophila Pneumoniae, PCR Not Detected (NotDetected); Coronavirus 19, PCR Not Detected (NotDetected); Coronavirus 229E Not Detected (NotDetected); Coronavirus NL63 Not Detected (NotDetected); Coronavirus OC43 Not Detected (NotDetected); Coronovirus HKU1,PCR Not Detected (NotDetected); Human Metapneumovirus Not Detected (NotDetected); Influenza A, PCR Not Detected (NotDetected); Influenza AH1, 2009 Not Detected (NotDetected); Influenza AH1, PCR Not Detected (NotDetected); Influenza AH3,PCR Not Detected (NotDetected); Influenza B, PCR Not Detected (NotDetected); Mycoplasma Pneumoniae, PCR Not Detected (NotDetected); Parainfluenza 1, PCR Not Detected (NotDetected); Parainfluenza 2, PCR Not Detected (NotDetected); Parainfluenza 3, PCR Not Detected (NotDetected); Parainfluenza 4, PCR Not Detected (NotDetected); Respiratory Syncytial Virus Not Detected (NotDetected); Rhinovirus/Enterovirus Not Detected (NotDetected)
--- NOTE | 2020-10-25 10:43 | CT_ITS ---
PROCEDURE: CT ANGIO CHEST CLINCIAL INDICATION: SOB COMPARISON: No exams were available for comparison TECHNIQUE: IV Contrast: 70ML Isovue 370 Axial images obtained with sagittal and coronal reformats. All CT scans at the facility use one or more dose reduction, viz: automated exposure control, ma/kV adjustment per patient size (including targeted exams where dose is matched to indication, i.e. head), or iterative reconstruction technique. FINDINGS: Limited study due to phase of IV contrast. HEART AND MEDIASTINAL STRUCTURES: There is no evidence of occlusive central pulmonary embolism in the pulmonary trunk and main pulmonary arteries. Nonocclusive emboli cannot be completely excluded on the segmental and subsegmental frame branches due to the phase of IV contrast. The heart size is normal. No pericardial effusions. Visualized thoracic aorta is unremarkable. LUNGS AND PLEURAL SPACES: Atelectasis is noted in the lingula and right middle lobe. Minor right basal atelectasis. No lobar consolidation, pleural effusions or pneumothorax. The central trunk tracheobronchial tree is patent. No suspicious lung nodules are noted. BONY STRUCTURES: Minor degenerative changes of the visualized thoracic spine.. UPPER ABDOMEN: The visualized upper abdominal solid organs are unremarkable within the limitations of the phase of IV contrast. ADDITIONAL FINDINGS: The visualized thyroid gland is unremarkable IMPRESSION: Limited study due to phase of IV contrast. No central pulmonary embolism. Nonocclusive emboli in the distal pulmonary arteries cannot be completely excluded. Atelectasis in the lungs bilaterally. No lobar consolidation or pleural effusions. Dictated by: Vania Prado 10/25/2020 11:40 Vania Prado in [place] 10/25/2020 11:40
== END ==
LOC: LAB 10:24 → RAD 10:40
PROVIDERS: PCP Internal Medicine Adolescent Medicine; Visit Provider Internal Medicine Adolescent Medicine
DX: R06.02 Shortness of breath (principal)
CPT/HCPCS: 71275; 87581; 87633; 87798

== ENCOUNTER → 2020-12-21 11:48 | Outpatient (CLI) | payer BC, OTHER, SELFPAY ==
[2020-12-21 12:42] LABS: Basophils # 0.2 K/mm3 (0-0.2); Basophils % 1.8 % (0.1-2.0); Eosinophils # 0.1 K/mm3 (0.0-0.4); Eosinophils % 0.9 % (0.1-12.0); Hematocrit 42.4 % (37.0-47.0); Lymphocytes # 2.6 K/mm3 (0.7-4.5); Lymphocytes % 30.2 % (10-50); Mean Corpuscular HGB Conc 33.1 g/dL (31.8-35.4); Mean Corpuscular Hemoglobin 28.1 pg (27.0-31.2); Mean Corpuscular Volume 85.1 fl (81-99); Mean Platelet Volume 7.3 fl (7.4-10.4); Monocytes # 0.3 K/mm3 (0.1-1.0); Monocytes % 2.9 % (1.7-9.3); Neutrophils # 5.5 K/mm3 (1.8-7.8); Neutrophils % 64.2 % (37.0-80.0); Platelet Count 344 K/mm3 (142-424); Red Blood Count 4.98 M/mm3 (4.20-5.40); Red Cell Distribution Width 14.9 % (11.5-17.5); White Blood Count 8.6 K/mm3 (4.8-10.8)
[2020-12-21 13:55] LABS: Alanine Aminotransferase 19 U/L (12-78); Albumin Level 4.4 g/dl (3.5-5.0); Albumin/Globulin Ratio 1.6 (1.1-1.8); Alkaline Phosphatase 85 U/L (38-126); Anion Gap 13.4 mEq/L (5-15); Aspartate Amino Transferase 18 U/L (14-36); Bilirubin,Total 0.8 mg/dl (0.2-1.3); Blood Urea Nitrogen 13 mg/dl (7-17); Calcium 9.2 mg/dl (8.4-10.2); Carbon Dioxide 26 mmol/L (22.0-30.0); Chloride 107 mmol/L (98-107); Chol/HDL Ratio 4.1 (1-3.5); Cholesterol 194 mg/dl (140-200); Estimated Glomerular Filt Rate 102 ml/min (>60); GFR (African American) 123 ML/MIN (>60); Globulin 2.8 g/dL (1.3-3.2); Glucose 100 mg/dl (74-100); HDL Cholesterol 47 mg/dl (40-60); Potassium 4.4 mmoL/L (3.5-5.1); Sodium 142 mmol/L (136-145); Total Protein,Serum 7.2 g/dl (6.3-8.2); Triglycerides 211 mg/dl (30-150); VLDL Cholesterol 42 mg/dL (0-40)
[2020-12-21 14:13] LABS: Free Thyroxine Index 2.2 ug/dL (5.93-13.13); T4 (Thyroxine) 7.9 ug/dl (5.53-11.0); Triiodothryronine (T3) Uptake 28 % (23.5-40.5)
[2020-12-21 14:26] LABS: Thyroid Stimulating Hormone 1.18 uIU/mL (0.465-4.68)
[2020-12-22 08:37] LABS: FSH 5.9 mIU/mL (.)
[2020-12-26 23:47] LABS: Testosterone,Free 2.6 pg/mL (0.0-4.2)
== END ==
PROVIDERS: PCP Internal Medicine Adolescent Medicine; Visit Provider Internal Medicine Adolescent Medicine
DX: N92.0 Excessive and frequent menstruation with regular cycle (principal); E78.2 Mixed hyperlipidemia
CPT/HCPCS: 80053; 80061; 83001; 83002; 84402; 84403; 84436; 84443; 84479; 85025

== ENCOUNTER → 2021-01-25 10:33 | Outpatient (CLI) | payer BC, OTHER, SELFPAY ==
[2021-01-25 11:24] LABS: Hemoglobin A1C 5.4 % (4.0-6.0)
[2021-01-25 12:54] LABS: Alanine Aminotransferase 15 U/L (12-78); Albumin Level 4.2 g/dl (3.5-5.0); Albumin/Globulin Ratio 1.7 (1.1-1.8); Alkaline Phosphatase 77 U/L (38-126); Anion Gap 14.9 mEq/L (5-15); Aspartate Amino Transferase 17 U/L (14-36); Blood Urea Nitrogen 11 mg/dl (7-17); Calcium 9.3 mg/dl (8.4-10.2); Carbon Dioxide 25 mmol/L (22.0-30.0); Chloride 104 mmol/L (98-107); Estimated Glomerular Filt Rate 102 ml/min (>60); GFR (African American) 123 ML/MIN (>60); Globulin 2.5 g/dL (1.3-3.2); Glucose 99 mg/dl (74-100); Potassium 4.9 mmoL/L (3.5-5.1); Sodium 139 mmol/L (136-145); Total Protein,Serum 6.7 g/dl (6.3-8.2)
== END ==
PROVIDERS: Visit Provider Nurse Practitioner Family
DX: R73.9 Hyperglycemia, unspecified (principal); B37.2 Candidiasis of skin and nail
CPT/HCPCS: 36415; 80053; 80061; 83036

== ENCOUNTER 2021-02-09 11:34 | Emergency (ER) | payer OTHER, SELFPAY ==
[2021-02-09 11:36] VITALS: BP 120/77; PULSE 93; RESP 16; TEMP 36.9; O2SAT 98; BMI 41.5
[2021-02-09 13:58] VITALS: BP 131/82; PULSE 91; RESP 18; TEMP 37.1; O2SAT 99; BMI 41.5
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
[2021-02-09 15:25] VITALS: BP 124/74; PULSE 78; RESP 16; TEMP 36.6; O2SAT 98; BMI 35.4
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
[2021-02-09 15:54] LABS: Alanine Aminotransferase 15 U/L (12-78); Albumin Level 4.1 g/dl (3.5-5.0); Albumin/Globulin Ratio 1.3 (1.1-1.8); Alkaline Phosphatase 73 U/L (38-126); Anion Gap 13.3 mEq/L (5-15); Aspartate Amino Transferase 18 U/L (14-36); Bilirubin,Total 0.7 mg/dl (0.2-1.3); Blood Urea Nitrogen 8 mg/dl (7-17); Calcium 9.2 mg/dl (8.4-10.2); Carbon Dioxide 24 mmol/L (22.0-30.0); Chloride 106 mmol/L (98-107); Creatinine Clearance Estimated 108 mL/min (50-200); Estimated Glomerular Filt Rate 122 ml/min (>60); GFR (African American) 147 ML/MIN (>60); Globulin 3.2 g/dL (1.3-3.2); Glucose 107 mg/dl (74-100); Potassium 4.3 mmoL/L (3.5-5.1); Sodium 139 mmol/L (136-145); Total Protein,Serum 7.3 g/dl (6.3-8.2)
[2021-02-09 15:57] LABS: Basophils # 0.1 K/mm3 (0-0.2); Eosinophils # 0.1 K/mm3 (0.0-0.4); Eosinophils % 0.6 % (0.1-12.0); Lymphocytes # 2.5 K/mm3 (0.7-4.5); Lymphocytes % 28.9 % (10-50); Mean Corpuscular HGB Conc 33.3 g/dL (31.8-35.4); Mean Corpuscular Hemoglobin 28.8 pg (27.0-31.2); Mean Corpuscular Volume 86.6 fl (81-99); Mean Platelet Volume 7.6 fl (7.4-10.4); Monocytes # 0.3 K/mm3 (0.1-1.0); Monocytes % 3.1 % (1.7-9.3); Neutrophils # 5.8 K/mm3 (1.8-7.8); Neutrophils % 66.4 % (37.0-80.0); Platelet Count 387 K/mm3 (142-424); Red Blood Count 4.84 M/mm3 (4.20-5.40); Red Cell Distribution Width 14.4 % (11.5-17.5); White Blood Count 8.8 K/mm3 (4.8-10.8)
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
[2021-02-09 16:03] LABS: HCG Qualitative, Serum Negative (Negative)
[2021-02-09 17:34] VITALS: BP 125/78; PULSE 78; RESP 16; TEMP 36.6; O2SAT 98
== END 2021-02-09 17:35 | disposition home or self-care (01) ==
LOC: ER 11:49 → UTC 11:50 → ER 14:44
PROVIDERS: Emergency Medicine; Emergency Provider Physician Assistant; PCP Internal Medicine Adolescent Medicine
DX: S39.81XA Other specified injuries of abdomen, initial encounter (principal); S16.1XXA Strain of muscle, fascia and tendon at neck level, initial encounter; S20.219A Contusion of unspecified front wall of thorax, initial encounter; V43.62XA Car passenger injured in collision with other type car in traffic accident, initial encounter; Y92.414 Local residential or business street as the place of occurrence of the external cause
CPT/HCPCS: 70450; 71046; 72125; 72128; 74177; 80053; 84703; 85025; 96374; 99283; J2405; Q9967

== ENCOUNTER → 2021-03-22 10:46 | Outpatient (CLI) | payer BC, OTHER, SELFPAY ==
[2021-03-22 11:30] LABS: Chloride 108 mmol/L (98-107); Potassium 4.6 mmoL/L (3.5-5.1); Sodium 138 mmol/L (136-145)
[2021-03-22 11:33] LABS: Anion Gap 12.6 mEq/L (5-15); Blood Urea Nitrogen 9 mg/dl (7-17); Calcium 9.3 mg/dl (8.4-10.2); Carbon Dioxide 22 mmol/L (22.0-30.0); Estimated Glomerular Filt Rate 122 ml/min (>60); GFR (African American) 147 ML/MIN (>60); Glucose 105 mg/dl (74-100)
== END ==
PROVIDERS: Visit Provider Nurse Practitioner Family
DX: E28.2 Polycystic ovarian syndrome (principal)
CPT/HCPCS: 36415; 80048

== ENCOUNTER 2021-05-05 18:19 | Emergency (ER) | payer BC, OTHER, SELFPAY ==
[2021-05-05 20:23] VITALS: BP 132/83; PULSE 81; RESP 19; TEMP 36.9; O2SAT 98; BMI 41.5
--- NOTE | 2021-05-05 20:32 | HMH.EDUTC ---
[facility] [place] Clinical Impression: Shingles rash Qualifiers: Herpes zoster complications: without complications Qualified Code(s): B02.9 - Zoster without complications Disposition: Home, Self-Care Condition on Discharge: Good Instructions: DI for Shingles, Shingles Additional Instructions: Take medication as prescribed FOllow up with your Family Doctor if no improvement or any worsening of symptoms Straight to ER if any life threatening symptoms Prescriptions: Acyclovir 800 mg PO 5XDAY 7 Days #35 tab Transmission Status: Pending to [id number] Referrals: Jose Brunner MD [Primary Care Provider] - As needed Time of Disposition: 21:05 Medical Decision Making - Jim Inquiry Pt receiving controlled substance: No Jim was queried for this patient: No Vital Signs: 05/05/21 20:23 Temperature 98.4 F Temperature Source Oral Pulse Rate [Left] 81 Respiratory Rate 19 Blood Pressure [Right Arm] 132/83 Blood Pressure Mean [Right Arm] 99 02 Sat by Pulse Oximetry 98 [facility] [place] HPI - General Stated complaint: rash Time Seen by Provider: 05/05/21 20:32 Mode of Arrival: Ambulatory Source of Information: Patient Limitations: No Limitations Description of Symptoms (Recalled from Triage Doc. by RN): pt thinks she has shings. she has had a rash ongoing for 2wks. HEENT Symptoms (Recalled from RN notes): No Resp Symptoms (Recalled from RN notes): No Skin Symptoms (Recalled from RN notes): Yes MS Symptoms (Recalled from RN notes): No Functional Status (Recalled from RN notes): na - History of Present Illness Provider Complaint: Patient states that she thinks she may have shingles again States that she has been having a rash on her right breast area that is itchy, lemon and hurts when she scratches it States that she has had shingles before in the same area and felt like it did now - Related Data Previous Rx's Medication Instructions Recorded cariprazine 1.5 mg capsule 1.5 mg PO Q OTHER DAY #15 cap 11/21/20 Acyclovir 800 mg PO 5XDAY 7 Days #35 tab 05/05/21 Allergies Allergy/AdvReac Type Severity Reaction Status Date / Time prochlorperazine Allergy Unknown Verified 02/06/21 09:01 [From Compazine] promethazine Allergy Unknown Verified 02/06/21 09:01 - Worker's Comp Is this a Worker's Comp case?: No [facility] History - Hepatitis A Screen Drug use history?: No High risk sexual behaviors?: No History of sexually transmitted infection?: No Currently employed?: No Childcare worker?: No Do you have indoor plumbing?: Yes Do you have electricity?: Yes Attestation statement:: This patient has been screened for Hepatitis A risk factors. I have reviewed the patient's past medical history: Yes Medical History: Reports:: Anxiety, Asthma, Depression, Migraine Denies:: Cancer, Diabetes Mellitus Type 1, Diabetes Mellitus Type 2, MRSA Other Medical History: Reports: Other Comment: boardline personality disorder Other Surgeries: Yes: , Dilation and Curettage Amputation: No Fractures: No Comment: oral surgery 2019 - Social History Smoking Status: Never smoker Alcohol Intake: never Substance Use Type: denies use Occupational Status: employed Housing: house Household Members: children, significant other - Psychiatric History Pschychiatric History:: Reports:: Anxiety, Depression Family Hx:: Cancer, Diabetes, Thyroid Disorder, Anemia, Kidney Disease ROS Obtained: Yes All systems reviewed & no additional complaints, Yes Systems reviewed as appropriate & no additional complaints - Constitutional Constitutional: Reports system reviewed and no additional complaints, except as docu, Denies body ache, Denies chills, Denies fever(s) - ENT Ears, Nose, Mouth, and Throat: Reports system reviewed and no additional complaints, except as docu - Cardiovascular Cardiovascular: Reports system reviewed and no additional complaints, except as docu - Respiratory Respiratory: Reports system reviewed
[2021-05-05 21:16] VITALS: BP 132/83; PULSE 81; RESP 19; TEMP 36.9
== END 2021-05-05 21:40 | disposition home or self-care (01) ==
PROVIDERS: Emergency Provider Nurse Practitioner; PCP Internal Medicine Adolescent Medicine
DX: B02.9 Zoster without complications (principal); F41.8 Other specified anxiety disorders; J45.909 Unspecified asthma, uncomplicated
CPT/HCPCS: 99202; G0463

== ENCOUNTER 2021-06-28 12:24 | Emergency (ER) | payer BC, OTHER, SELFPAY ==
[2021-06-28 14:48] VITALS: BP 132/101; PULSE 98; RESP 18; TEMP 36.9; O2SAT 100; BMI 41.5
--- NOTE | 2021-06-28 15:14 | HMH.EDUTC ---
[facility] [place] Clinical Impression: Viral syndrome, Exposure to COVID-19 virus, Bronchitis Disposition: Home, Self-Care Condition on Discharge: Good Instructions: Preventing the Spread of Coronavirus Discharge Instructions, DI for COVID-19 (Suspected or Confirmed ), DI for Viral Syndrome Additional Instructions: Drink plenty of fluids. Take tylenol or ibuprofen for pain or fever. Take the medications as directed. Follow up with your regular doctor. GO TO THE ER FOR ANY WORSENING SYMPTOMS Quarantine until you know the results of your covid-19 test. If it is positive, the health department should call you and give you further instructions about your length of Quarantine and other things. Notify your school or workplace of your results and follow their instructions regarding return to work/school. The cough medication (promethazine dm) will make you drowsy, so don't drive or operate heavy machinery after taking it. Prescriptions: Brompheniramine/Pseudoephed/Dm [Bromfed Dm Cough Syrup] 5 ml PO Q6HP PRN #240 ml PRN Reason: Cough Transmission Status: Pending to [id number] methylPREDNISolone [Medrol] 4 mg PO DIRECTED 6 Days #21 packet Transmission Status: Pending to [id number] Azithromycin [Z-Bart 250mg Tab*] 250 mg PO UD DOSE PK #6 tab Transmission Status: Pending to [id number] Referrals: Jose Brunner MD [Primary Care Provider] - Forms: Work/School Release Time of Disposition: 15:41 Medical Decision Making - Medical Records Medical records reviewed: No: I reviewed the patient's medical records. - Jim Inquiry Pt receiving controlled substance: No Vital Signs: 06/28/21 14:48 Temperature 98.5 F Temperature Source Oral Pulse Rate [Left] 98 H Respiratory Rate 18 Blood Pressure [Right Arm] 132/101 H Blood Pressure Mean [Right Arm] 111 02 Sat by Pulse Oximetry 100 - Lab Data Lab results reviewed: Yes: I reviewed the patient's lab results. Orders (Tests/Meds): ORDERS Category Date Time Status Covid-19 Nasal PCR ([facility]) Routine Lab 06/28/21 14:48 Received [facility] [place] HPI - General Stated complaint: covid symptoms, test Time Seen by Provider: 06/28/21 15:15 Mode of Arrival: Ambulatory Source of Information: Patient Limitations: No Limitations Description of Symptoms (Recalled from Triage Doc. by RN): pt c/o GUTIERREZ, congestion, cough, chills and loss of taste/smell. exposed 06/21 HEENT Symptoms (Recalled from RN notes): Yes Resp Symptoms (Recalled from RN notes): Yes Skin Symptoms (Recalled from RN notes): No MS Symptoms (Recalled from RN notes): No Functional Status (Recalled from RN notes): wnl - History of Present Illness Provider Complaint: She states that she has felt bad for the past 2 days. She has sore throat, cough, chest congestion, and low grade fever. - Related Data Previous Rx's Medication Instructions Recorded cariprazine 1.5 mg capsule 1.5 mg PO Q OTHER DAY #15 cap 11/21/20 Acyclovir 800 mg PO 5XDAY 7 Days #35 tab 05/05/21 Azithromycin [Z-Bart 250mg Tab*] 250 mg PO UD DOSE PK #6 tab 06/28/21 Brompheniramine/Pseudoephed/Dm 5 ml PO Q6HP PRN #240 ml 06/28/21 [Bromfed Dm Cough Syrup] methylPREDNISolone [Medrol] 4 mg PO DIRECTED 6 Days #21 06/28/21 packet Allergies Allergy/AdvReac Type Severity Reaction Status Date / Time prochlorperazine Allergy Unknown Verified 02/06/21 09:01 [From Compazine] promethazine Allergy Unknown Verified 02/06/21 09:01 - Worker's Comp Is this a Worker's Comp case?: No H History - Hepatitis A Screen Drug use history?: No High risk sexual behaviors?: No History of sexually transmitted infection?: No Currently employed?: No Childcare worker?: No Do you have indoor plumbing?: Yes Do you have electricity?: Yes Attestation statement:: This patient has been screened for Hepatitis A risk factors. I have reviewed the patient's past medical history: Yes Medical History: Re
[2021-06-28 15:37] LABS: UTC Strep Screen (Rapid) Negative (Negative)
[2021-06-28 15:50] VITALS: BP 132/101; PULSE 98; RESP 18; TEMP 36.9
== END 2021-06-28 15:52 | disposition home or self-care (01) ==
PROVIDERS: Emergency Provider Nurse Practitioner Family; PCP Internal Medicine Adolescent Medicine
DX: U07.1 COVID-19 (principal); J20.9 Acute bronchitis, unspecified; F41.8 Other specified anxiety disorders
CPT/HCPCS: 87880; 99203; C9803; G0463; U0003; U0005

== ENCOUNTER 2021-08-26 14:57 | Emergency (ER) | payer OTHER, SELFPAY ==
--- NOTE | 2021-08-26 14:57 | ECG_ITS ---
APPROVED REPORT Exam: Resting ECG HR:97 bpm ECG Measurements Heart Rate 97 AXES AR 138 P 20 QRSd 82 QRS 26 QT 352 T 31 QTc 407 Conclusion SINUS RHYTHM NORMAL ECG UNCONFIRMED REPORT Electronically signed by : Jose Brunner MD 08/27/2021 18:02:56
[2021-08-26 15:06] VITALS: BP 148/84; PULSE 98; RESP 18; O2SAT 100; BMI 44.1
[2021-08-26 15:08] VITALS: BMI 43.9
--- NOTE | 2021-08-26 15:09 | XR_ITS ---
FINAL REPORT CLINICAL HISTORY: CHEST PAIN, soa, asthma, hand swelling COMPARISON: February 09, 2021 FINDINGS: The heart size is normal. The mediastinum is normal. There is no focal infiltrate or edema. There are no pleural effusions. There is no pneumothorax. There is no osseous abnormality. IMPRESSION: No acute cardiopulmonary process Reviewed, Interpreted and Dictated by Dominic Clemons III, MD Transcribed by Santi Owens Authenticated by Dominic Clemons III, MD on 08/26/2021 04:15:[address] [facility]
[2021-08-26 15:19] LABS: Basophils # 0.1 K/mm3 (0-0.2); Basophils % 1.4 % (0.1-2.0); Eosinophils # 0.1 K/mm3 (0.0-0.4); Hematocrit 41.7 % (37.0-47.0); Hemoglobin 13.9 g/dL (12.2-16.2); Lymphocytes # 2.6 K/mm3 (0.7-4.5); Lymphocytes % 35.4 % (10-50); Mean Corpuscular HGB Conc 33.4 g/dL (31.8-35.4); Mean Corpuscular Hemoglobin 29.7 pg (27.0-31.2); Mean Platelet Volume 7.4 fl (7.4-10.4); Monocytes # 0.2 K/mm3 (0.1-1.0); Monocytes % 2.2 % (1.7-9.3); Neutrophils # 4.4 K/mm3 (1.8-7.8); Neutrophils % 59.9 % (37.0-80.0); Platelet Count 346 K/mm3 (142-424); Red Blood Count 4.69 M/mm3 (4.20-5.40); Red Cell Distribution Width 14.3 % (11.5-17.5); White Blood Count 7.3 K/mm3 (4.8-10.8)
[2021-08-26 15:20] LABS: Chloride 108 mmol/L (98-107); Potassium 3.7 mmoL/L (3.5-5.1); Sodium 140 mmol/L (136-145)
[2021-08-26 15:23] LABS: Anion Gap 11.7 mEq/L (5-15); Blood Urea Nitrogen 10 mg/dl (7-17); Calcium 8.1 mg/dl (8.4-10.2); Carbon Dioxide 24 mmol/L (22.0-30.0); Creatinine Clearance Estimated 112 mL/min (50-200); Estimated Glomerular Filt Rate 121 ml/min (>60); GFR (African American) 146 ML/MIN (>60); Glucose 119 mg/dl (74-100)
[2021-08-26 15:30] VITALS: BP 137/99; PULSE 104; O2SAT 100
[2021-08-26 15:32] VITALS: BP 150/87; PULSE 98; RESP 18; O2SAT 100
[2021-08-26 15:44] LABS: Troponin I < 0.01 ng/ml (0.00-0.034)
[2021-08-26 16:00] VITALS: BP 141/83; PULSE 99; RESP 18; O2SAT 100
--- NOTE | 2021-08-26 16:02 | HMH.EDCP ---
ED Disposition Clinical Impression: Atypical chest pain Disposition: Home, Self-Care Condition on Discharge: Good Instructions: DI for Atypical Chest Pain Referrals: Jose Brunner MD [Primary Care Provider] - - Critical Care Critical Care Time: No Attestation: On 08/26/21, the high probability of a clinically significant, sudden or life threatening deterioration of the following system(s) required my full and direct attention, intervention and personal management. The time I documented below is in addition to time spent performing reported procedures but includes the following listed in this critical care notation. Medical Decision Making - Medical Records Medical records reviewed: Yes: I reviewed the patient's medical records. - Jim Inquiry Pt receiving controlled substance: No Vital Signs: 08/26/21 15:06 08/26/21 15:30 08/26/21 15:32 Pulse Rate 104 H 98 H Pulse Rate [Left Radial] 98 H Respiratory Rate 18 18 Blood Pressure 137/99 H 150/87 H Blood Pressure [Right Arm] 148/84 H Blood Pressure Mean 111 108 Blood Pressure Mean [Right Arm] 105 Blood Pressure Source [Right Arm] Automatic Cuff Blood Pressure Position [Right Arm] Sitting 02 Sat by Pulse Oximetry 100 100 100 Oxygen Delivery Method Room Air - Lab Data Lab Results 08/26/21 15:06: WBC 7.3, RBC 4.69, Hgb 13.9, Hct 41.7, MCV 89.0, MCH 29.7, MCHC 33.4, RDW 14.3, Plt Count 346, MPV 7.4, Neut % (Auto) 59.9, Lymph % (Auto) 35.4, [place] % (Auto) 2.2, Eos % (Auto) 1.0, Baso % (Auto) 1.4, Neut # (Auto) 4.4, Lymph # (Auto) 2.6, [place] # (Auto) 0.2, Eos # (Auto) 0.1, Baso # (Auto) 0.1 08/26/21 15:06: Sodium 140, Potassium 3.7, Chloride 108 H, Carbon Dioxide 24, Anion Gap 11.7, BUN 10, Creatinine 0.60, Estimated Creat Clear 112, Estimated GFR 121, Est GFR ( Amer) 146, Glucose 119 H, Calcium 8.1 L, Troponin I < 0.01 Result diagrams: 08/26/21 15:06 08/26/21 15:06 Orders (Tests/Meds): ED MEDICATIONS Generic Name Dose Route Start Last Admin Trade Name Fresamra PRN Reason Stop Dose Admin Sodium Chloride 10 ml 08/26/21 15:09 Sodium Chloride 0.9% 10ml Flush Syringe IV 09/25/21 15:08 NEEDED PRN Maintain IV Site Discontinued Medications Generic Name Dose Route Start Last Admin Trade Name Fresamra PRN Reason Stop Dose Admin Aspirin 324 mg 08/26/21 15:22 08/26/21 15:23 Aspirin 81mg Chewable Tablet PO 08/26/21 15:23 324 mg ONCE ONE Administration ORDERS Category Date Time Status Troponin I Q3H Lab 08/26/21 18:15 Ordered Troponin I Q3H Lab 08/26/21 21:15 Ordered Medical Decision Narrative: ekg by mo nsr, qrs nml, no st elev Chest Pain HPI - General Chief Complaint: Chest Pain Stated Complaint: cp Time Seen by Provider: 08/26/21 16:02 Mode of Arrival: Ambulatory Limitations: No Limitations Description of Symptoms (Recalled from ER Triage Doc. by RN): c/o chest pain for 2 weeks with memory loss at times. States she has hot flashes - History of Present Illness HPI narrative: cp throbbing moderate 3 weeks intermittent Onset (ago): week(s) Duration: intermittent Activity at onset: during rest Pain location: substernal Severity: moderate Pain radiation: none Relieving factors: nothing Exacerbating factors: movement Associated symptoms: diaphoresis - Related Data Home Medications Medication Instructions Recorded Confirmed Spironolactone [Spironolactone 25 mg PO BID 08/26/21 08/26/21 25mg Tablet] Previous Rx's Medication Instructions Recorded cariprazine 1.5 mg capsule 1.5 mg PO Q OTHER DAY #15 cap 11/21/20 Acyclovir 800 mg PO 5XDAY 7 Days #35 tab 05/05/21 Azithromycin [Z-Bart 250mg Tab*] 250 mg PO UD DOSE PK #6 tab 06/28/21 Brompheniramine/Pseudoephed/Dm 5 ml PO Q6HP PRN #240 ml 06/28/21 [Bromfed Dm Cough Syrup] methylPREDNISolone [Medrol] 4 mg PO DIRECTED 6 Days #21 06/28/21 packet Allergies Allergy/AdvReac Type Severity Reaction Status Date
[2021-08-26 16:30] VITALS: BP 138/86; PULSE 102; RESP 18; O2SAT 100
[2021-08-26 16:48] VITALS: BP 138/86; PULSE 98; RESP 16; TEMP 36.8; O2SAT 100
== END 2021-08-26 16:51 | disposition home or self-care (01) ==
PROVIDERS: Emergency Provider Emergency Medicine; PCP Internal Medicine Adolescent Medicine
DX: R07.2 Precordial pain (principal); R61 Generalized hyperhidrosis; N95.1 Menopausal and female climacteric states; G43.909 Migraine, unspecified, not intractable, without status migrainosus; J45.909 Unspecified asthma, uncomplicated; F32.A Depression, unspecified; F41.9 Anxiety disorder, unspecified; Z79.52 Long term (current) use of systemic steroids; Z79.899 Other long term (current) drug therapy; Z88.8 Allergy status to other drugs, medicaments and biological substances; Z82.49 Family history of ischemic heart disease and other diseases of the circulatory system; Z83.2 Family history of diseases of the blood and blood-forming organs and certain disorders involving the immune mechanism; Z83.49 Family history of other endocrine, nutritional and metabolic diseases; Z84.1 Family history of disorders of kidney and ureter
CPT/HCPCS: 71045; 80048; 84484; 85025; 93005; 99284

== ENCOUNTER 2022-09-21 07:47 | Emergency (ER) | payer OTHER, SELFPAY ==
[2022-09-21 08:00] VITALS: BP 120/84; PULSE 109; RESP 20; TEMP 36.6; O2SAT 97; BMI 41.5
--- NOTE | 2022-09-21 08:14 | HMH.EDGENADL ---
Discharge Plan Disposition Patient Disposition: Home, Self-Care Prescriptions Prescriptions: New ibuprofen 800 mg tablet 800 mg PO TID PRN (Reason: pain) 7 Days Qty: 20 0RF cyclobenzaprine 5 mg tablet 5 mg PO TID PRN (Reason: muscle spasm) 5 Days Qty: 15 0RF No Action Vraylar 1.5 mg capsule 1.5 mg PO Q OTHER DAY Qty: 15 1RF acyclovir 800 MG tablet 800 mg PO 5XDAY 7 Days Qty: 35 0RF spironolactone 25 MG tablet 25 mg PO BID Referrals Follow up/Referrals: Jose Brunner MD [Primary Care Provider] - See instructions Clinical Impressions Clinical Impression: Lumbosacral strain Instructions Patient Instructions: DI for Low Back Pain Discharge ED Provider: Marilyn (ED)Chris General Adult HPI General Chief complaint: Back Pain/Injury Stated complaint: Lower back pain no accident Time Seen by Provider: 09/21/22 08:14 Mode of Arrival: Ambulatory Source of Information: Patient Limitations: No Limitations Description of Symptoms (Recalled from ER Triage Doc. by RN): pt to ed c/o lower back pain. pt states yesterday morning she was sitting in the floor putting easter baskets together and felt a twinge in her lower back. pt reports at approx 1730 last night she sat down on the couch and had a sudden pain in her lower back that she states is sharp in nature. pt reports her back is most painful when she is sitting upright. History of Present Illness HPI narrative: Patient is a 27-year-old female presenting with nontraumatic back pain. States that she has had some upper respiratory infection type symptoms and she has been very sedentary the past few days and has subsequently developed some lower back pain predominantly on the right lumbosacral region. She denies any urinary or bowel incontinence, urinary retention, lower extremity weakness, saddle anesthesia, history of injection drug use, fevers, or history of cancer. She took some Celebrex yesterday and some topical anti-inflammatory medication cream without any significant improvement. Pain is mild to moderate. Related Data Home Medications Medication Instructions Recorded Confirmed spironolactone 25 mg tablet 25 mg PO BID bp 08/26/21 06/24/22 Previous Rx's Medication Instructions Recorded cariprazine 1.5 mg capsule 1.5 mg PO Q OTHER DAY #15 caps 11/21/20 (Vraylar) acyclovir 800 mg tablet 800 mg PO 5XDAY 7 days #35 tabs 05/05/21 cyclobenzaprine 5 mg tablet 5 mg PO TID PRN muscle spasm 5 09/21/22 days #15 tabs ibuprofen 800 mg tablet 800 mg PO TID PRN pain 7 days #20 09/21/22 tabs Allergies Allergy/AdvReac Type Severity Reaction Status Date / Time prochlorperazine Allergy Unknown Verified 06/24/22 08:05 [From Compazine] promethazine Allergy Unknown Verified 06/24/22 08:05 [facility] Disclaimer: The information contained in this section may have been updated after the patient was seen, as this information can be updated by other users. Social History Smoking Status: Never smoker second hand exposure: No alcohol intake: never substance use type: denies use current occupational status: employed Travel in the last 8 weeks: None household members: significant other and children housing: house number of children: 1 current occupational exposures/hazards: No ROS Obtained: Yes All systems reviewed & no additional complaints except as documented Physical Exam General General appearance: alert and in no apparent distress Respiratory Respiratory exam: Present normal lung sounds bilaterally Cardiovascular Cardiovascular exam: Present regular rate; Absent tachycardia Back Exam Back exam: Present other (No midline lumbar spine tenderness there is significant tenderness to palpation of the right paraspinal region in the lumbosacral area lower extremity motor strength and sensory exam is normal) Neurological Exam Neurological exam: Presen
[2022-09-21 08:58] VITALS: BP 121/78; PULSE 90; RESP 20; TEMP 36.6; O2SAT 99
== END 2022-09-21 09:00 | disposition home or self-care (01) ==
PROVIDERS: Emergency Provider Emergency Medicine; PCP Internal Medicine Adolescent Medicine
DX: S39.012A Strain of muscle, fascia and tendon of lower back, initial encounter (principal)
CPT/HCPCS: 99283

== ENCOUNTER 2022-12-02 14:30 | Outpatient (RCR) | payer OTHER, SELFPAY ==
--- NOTE | 2022-10-12 11:52 | HMH.PTOPEV ---
PT Outpatient Evaluation Rehab PT Outpatient Evaluation Start: 10/12/22 11:33 Freq: Status: Active Protocol: Document 10/12/22 11:33 JIMENA (Rec: 10/12/22 11:52 PHORKRYSTIN [id number]) E-signed By Abdirashid Lee, PT Outpatient Therapy Subjective History Subjective History This is the initial PT eval for Martha Charles 27 yowf who presents with acute onset low back pain, worse on L side, x ~ 1 mo. She reports feeling a pinch initially upon standing with no immediate pain, but several hours later she felt increased pain and stiffness. SHe reports, I couldn't even get in a car until last week because it hurt so bad. Sh has seen some improvement of symptoms up to this point, but remains stiff and uncomfortable with standing/ walking and bending or lifting activities. She reports no c/ o radicular symptoms. PMH: HTN , sleep apnea, asthma, kidney stones. Chief Complaint Pain,Stiff Symptom Type Ache,Sharp Symptoms Relieved By Rest/Positioning,Heat Symptoms Aggravated By Bending/Stooping,Physical Activity,Twisting,Walking, Lifting Prior Functional Limitations None Current Functional Limitations Reaching,Lifting,Housework, Driving,Standing,Recreation Activity,Walking,Bending/ Stooping Symptom Description Constant but Variable Level of pain today (0-10) 4 Pain scale - at its worst (0-10) 8 Lumbopelvic Eval Posture Lumbar Spine Posture Standing Position Flexible Scoliosis on (L) Assistive device Assistive Devices None / NA Gait Observation General Gait Pattern Observation No Deviations/Normal Palapation tenderness left lumbar spinal tenderness Yes: 2/4 paraspinal tenderness Yes: lumbar 2/4 buttock tenderness No Accessory Movement L4 bilateral L5 bilateral S1 bilateral Range of Motion Lumbar Spine Active Flexion Range of 0-40 Motion (degrees) Lumbar Spine Active Extension Range of 0-15 Motion (degrees) Left Lumbar Spine Lateral Flexion Act
--- NOTE | 2022-11-10 10:43 | HMH.RHREAS ---
Rehab Reassessment Rehab OP Re-assessment Start: 11/10/22 10:32 Freq: Status: Active Protocol: Document 11/10/22 10:32 JIMENA (Rec: 11/10/22 10:38 PHOOZIEL [id number]) E-signed By Abdirashid Lee, PT Rehab Re-assessment Subjective Subjective Pt reports much less pain overall, 07/24 this am in L side of low back. She reports increased ability to tolerate all work activity with less pain. Objective Objective Notes Lumbar AROM (in deg): FLEX=0- 60, EXT=0-23, R SB= 0-15, L SB = 0-15. PAIN: 07/24 TTP: 06/17 L QUAD LUMBORUM AREA. Assessment Progress Assessment Progressing as Expected Assessment Notes Pt has show significant improvement in her lumbar AROM and reduction in overall pain . This has correlated in improved ability to azar her work activities and performing all of her ADLs. She continues to need skilled intervention to return to prior level of function with all ADLs without pain. Patient goals met ST,2,3,4,5,6 Goals Not Met LT,2,3,4,5,6 Revised Goals none Plan Plan Continue per initial POC. Frequency of Therapy 1 x/wk Duration of therapy 3-4 wks Time and Billing Re-Eval Time 16 Re-Eval Billing Units 1 PHYSICIAN CERTIFICATION: I certify the specified therapy services for Martha Charles are required, authorized, and reviewed every 30 days.
== END 2022-12-02 14:35 | disposition home or self-care (01) ==
LOC: PT 14:30
PROVIDERS: PCP Internal Medicine Adolescent Medicine; Visit Provider Nurse Practitioner Family
DX: M54.50 Low back pain, unspecified (principal)
CPT/HCPCS: 97010; 97014; 97110; 97140; 97163; 97164; G0283

== ENCOUNTER 2022-12-11 20:35 | Emergency (ER) | payer OTHER, SELFPAY ==
[2022-12-11] VITALS (8 sets, daily range): BP systolic 101–147; BP diastolic 56–88; PULSE 88–120; RESP 16–20; TEMP 36.2–36.9; O2SAT 95–99; BMI 43.8
[2022-12-11 20:54] LABS: Microscopic, Urine URINE MICROSCOPIC (MICROSCOPIC)
[2022-12-11 20:56] LABS: Appearance,Urine CLEAR (Clear); Bilirubin,Urine Negative (Negative); Blood, Urine Negative (Negative); Color,Urine YELLOW (Yellow); Glucose,Urine (UA) Negative (Negative); Ketones,Urine Negative (Negative); Leukocyte Esterase,Urine 1+ (Negative); Nitrate,Urine Negative (Negative); Protein,Urine Negative (Negative); Urobilinogen,Urine 0.2 EU/dl (0.2)
[2022-12-11 21:08] LABS: Urine Pregnancy, HCG Qual. Negative (Negative)
[2022-12-11 21:09] LABS: Basophils # 0.1 K/mm3 (0-0.2); Basophils % 0.6 % (0.1-2.0); Eosinophils # 0.2 K/mm3 (0.0-0.4); Eosinophils % 2.3 % (0.1-12.0); Hematocrit 41.5 % (37.0-47.0); Hemoglobin 13.4 g/dL (12.2-16.2); Lymphocytes # 3.7 K/mm3 (0.7-4.5); Lymphocytes % 39.1 % (10-50); Mean Corpuscular HGB Conc 32.4 g/dL (31.8-35.4); Mean Corpuscular Hemoglobin 28.7 pg (27.0-31.2); Mean Corpuscular Volume 88.6 fl (81-99); Mean Platelet Volume 7.2 fl (7.4-10.4); Monocytes # 0.3 K/mm3 (0.1-1.0); Monocytes % 3.6 % (1.7-9.3); Neutrophils # 5.2 K/mm3 (1.8-7.8); Neutrophils % 54.3 % (37.0-80.0); Platelet Count 390 K/mm3 (142-424); Red Blood Count 4.68 M/mm3 (4.20-5.40); Red Cell Distribution Width 14.1 % (11.5-17.5); White Blood Count 9.5 K/mm3 (4.8-10.8)
[2022-12-11 21:17] LABS: Chloride 103 mmol/L (98-107)
[2022-12-11 21:18] LABS: Potassium 3.8 mmoL/L (3.5-5.1); Sodium 136 mmol/L (136-145)
[2022-12-11 21:20] LABS: Alanine Aminotransferase 31 U/L (12-78); Alkaline Phosphatase 84 U/L (38-126); Aspartate Amino Transferase 31 U/L (14-36); Bilirubin,Total 0.3 mg/dl (0.2-1.3); Blood Urea Nitrogen 9 mg/dl (7-17); Creatinine Clearance Estimated 128 mL/min (50-200); Estimated Glomerular Filt Rate 148 ml/min (>60); GFR (African American) 179 ML/MIN (>60)
[2022-12-11 21:21] LABS: Albumin/Globulin Ratio 1.4 (1.1-1.8); Anion Gap 13.8 mEq/L (5-15); Calcium 9.1 mg/dl (8.4-10.2); Carbon Dioxide 23 mmol/L (22.0-30.0); Globulin 2.9 g/dL (1.3-3.2); Glucose 113 mg/dl (74-100); Total Protein,Serum 6.9 g/dl (6.3-8.2)
--- NOTE | 2022-12-11 21:24 | CT_ITS ---
PROCEDURE INFORMATION: Exam: CT Abdomen And Pelvis With Contrast Exam date and time: 12/11/2022 9:38 PM Age: 27 years old Clinical indication: Abdominal pain; Additional info: Refractory UTI, R flank pain TECHNIQUE: Imaging protocol: Computed tomography of the abdomen and pelvis with contrast. Radiation optimization: All CT scans at this facility use at least one of these dose optimization techniques: automated exposure control; mA and/or kV adjustment per patient size (includes targeted exams where dose is matched to clinical indication); or iterative reconstruction. Contrast material: ISOVUE; Contrast volume: 75 ml; Contrast route: IV; REPORTING DATA: Count of CT and Cardiac NM exams in prior 12 months: This patient has received 0 known CTs and 0 known cardiac nuclear medicine studies in the 12 months prior to the current study. COMPARISON: CT ABDOMEN PELVIS W CON 02/09/2021 4:23 PM FINDINGS: Liver: Normal. No mass. Gallbladder and bile ducts: Normal. No calcified stones. No ductal dilation. Pancreas: Normal. No ductal dilation. Spleen: Normal. No splenomegaly. Adrenal glands: Normal. No mass. Kidneys and ureters: There is a 4.4 mm non-obstructing right lower pole renal stone. Tiny density in the left lower pole kidney coronal image 1001/50 may represent a 1-2 mm non-obstructing left renal stone. Normal nephrogram. No perinephric infiltration. No hydronephrosis or hydroureter. There is a 5.6 mm right UVJ stone axial image 3/96. Stomach and bowel: The stomach is distended with fluid and debris. Non-specific bowel gas pattern. Normal appendix. Appendix: See Stomach and bowel finding. Intraperitoneal space: Unremarkable. No free air. No significant fluid collection. Vasculature: Unremarkable. No abdominal aortic aneurysm. Lymph nodes: Unremarkable. No enlarged lymph nodes. Urinary bladder: Unremarkable as visualized. Reproductive: Unremarkable as visualized. Bones/joints: There is a stable ground-glass bony lesion proximal right femur with a narrow zone of transition; possible fibrous dysplasia. Soft tissues: Unremarkable. IMPRESSION: 1. No free air or fluid or adenopathy. 2. There is a 4.4 mm non-obstructing right lower pole renal stone. Tiny density in the left lower pole kidney coronal image 1001/50 may represent a 1-2 mm non-obstructing left renal stone. 3. Normal nephrogram. No perinephric infiltration. No hydronephrosis or hydroureter 4. There is a 5.6 mm right UVJ stone axial image . 5. Non-specific bowel gas pattern. Normal appendix. 6. The stomach is distended with fluid and debris. 7. There is a stable ground-glass bony lesion proximal right femur with a narrow zone of transition; possible fibrous dysplasia.
--- NOTE | 2022-12-11 21:28 | HMH.EDGENADL ---
Discharge Plan Disposition Patient Disposition: Home, Self-Care Condition: Fair Prescriptions Prescriptions: New oxycodone 5 mg tablet 5 mg PO Q6H PRN (Reason: pain) Qty: 8 0RF Rx Instructions: Severe pain refractory to Tylenol and ibuprofen. tamsulosin [Flomax] 0.4 mg capsule 0.4 mg PO DAILY Qty: 14 0RF No Action drospirenone-ethinyl estradiol 3-0.03 mg tablet 1 tab PO DAILY albuterol sulfate [Ventolin HFA] 90 mcg/actuation HFA aerosol inhaler 1 inh inhalation PRN cefdinir 300 mg capsule 300 mg PO BID Patient Comments: TAKE 1 CAPSULE BY MOUTH EVERY 12 HOURS FOR 10 DAYS fluconazole [Diflucan] 150 mg tablet 150 mg PO Q3D Qty: 2 0RF Rx Instructions: take 1 tab once; may repeat dose in 72 hours terconazole 0.8 % cream 1 appful vaginal HS 3 Days Qty: 20 0RF spironolactone 25 MG tablet 25 mg PO BID Referrals Follow up/Referrals: Jose Brunner MD [Primary Care Provider] - See instructions Yunior Barnard MD [Referring] - See instructions (Right-sided 5.6 UVJ stone and flank pain) Activity Restrictions/Add. Instructions Additional Instructions/Restrictions: At this time was felt you are safe to be discharged home. Please continue to take antibiotics previously prescribed to you. Please take Tylenol and ibuprofen every 6 hours for pain, for breakthrough pain please take your oxycodone as prescribed. If new or worsening symptoms, high fevers, do not hesitate to return for continued evaluation. Please call and schedule follow-up with urology. Next appointment with your family doctor mention your incidental likely benign bone lesion of your right femur. Clinical Impressions Clinical Impression: Calculus, ureteral, Acute flank pain, Bone lesion Instructions Patient Instructions: DI for Kidney Stones Discharge ED Provider: Vik Barbour General Adult HPI General Chief complaint: Urogenital-Female Stated complaint: right side/back pain, no known accident Time Seen by Provider: 12/11/22 20:51 Mode of Arrival: Ambulatory Source of Information: Patient Limitations: No Limitations Description of Symptoms (Recalled from ER Triage Doc. by RN): Pt c/o right flank pain that radiates down into her groin. Pain increased this am and she c/o small amount of pain/burning with urination. Advises she was started on antibiotics for a UTI by her PCP. Denies any vomiting but does have some periods of nausea History of Present Illness HPI narrative: Patient is a 27-year-old female with chronic back pain who presents emergency department for evaluation of right-sided flank pain in setting of urinary tract infection. History is obtained by patient at bedside. She states that she has been diagnosed with a urinary tract infection, completed 7-day course of Macrobid, due to refractory symptoms presented to PCP where she was prescribed a course of amoxicillin for which she has been compliant for the last few days. Over the last 48 hours she has had right-sided flank pain and right posterior mid back pain that is new and different from her chronic back pain. She does have some dysuria. No other acute complaints at this time. Last menstrual period approximately 3 weeks ago, denies increased vaginal discharge from baseline. Patient does have chronic right upper quadrant pain of undetermined etiology. Related Data Home Medications Medication Instructions Recorded Confirmed spironolactone 25 mg tablet 25 mg PO BID bp 08/26/21 12/09/22 albuterol sulfate 90 mcg/actuation 1 inh inhalation PRN 12/09/22 12/09/22 aerosol inhaler (Ventolin HFA) cefdinir 300 mg capsule 300 mg PO BID 12/09/22 12/09/22 drospirenone 3 mg-ethinyl 1 tab PO DAILY 12/09/22 12/09/22 estradiol 0.03 mg tablet Previous Rx's Medication Instructions Recorded fluconazole 150 mg tablet 150 mg PO Q3D 2 doses #2 tabs 12/09/22 (Diflucan) terconazole 0.8 % vaginal cream 1 appful vaginal HS 3 days #20
--- NOTE | 2022-12-11 21:44 | PC.NURSE ---
PT medicated per AUG when she returned from rad. [place] provided, lights dimmed and call west within reach. PT had no other needs at this time
--- NOTE | 2022-12-11 22:10 | PC.NURSE ---
Rounded on patient at this time. Advises pain is much better, resting in bed and had no other needs at this time.
== END 2022-12-11 23:19 | disposition home or self-care (01) ==
PROVIDERS: Emergency Provider Emergency Medicine; PCP Internal Medicine Adolescent Medicine
DX: N20.1 Calculus of ureter (principal); M54.59 Other low back pain; R10.31 Right lower quadrant pain; M89.8X5 Other specified disorders of bone, thigh; J45.909 Unspecified asthma, uncomplicated; G47.30 Sleep apnea, unspecified
CPT/HCPCS: 74177; 80053; 81001; 81025; 85025; 87086; 96361; 96374; 96375; 99284; 99285; J2405; Q9967

== ENCOUNTER 2022-12-27 01:11 | Emergency (ER) | payer OTHER, SELFPAY ==
[2022-12-27 01:23] VITALS: BP 157/76; PULSE 88; RESP 16; TEMP 36.2; O2SAT 99; BMI 42.0
--- NOTE | 2022-12-27 01:28 | CT_ITS ---
PROCEDURE INFORMATION: Exam: CT Abdomen And Pelvis Without Contrast Exam date and time: 12/27/2022 2:02 AM Age: 27 years old Clinical indication: Abdominal pain; Flank; Prior surgery; Surgery date: Post-operative (0-2 days); Surgery type: Stone removal from right side; Additional info: Flank pain, inability to urinate, recent stone. PT stated she had recent surgery for right sided stone removal , PT stated per surgeon he did not see any stones TECHNIQUE: Imaging protocol: Computed tomography of the abdomen and pelvis without contrast. Total images: 332 Radiation optimization: All CT scans at this facility use at least one of these dose optimization techniques: automated exposure control; mA and/or kV adjustment per patient size (includes targeted exams where dose is matched to clinical indication); or iterative reconstruction. REPORTING DATA: Count of CT and Cardiac NM exams in prior 12 months: This patient has received [address] and 0 known cardiac nuclear medicine studies in the 12 months prior to the current study. COMPARISON: CT ABDOMEN PELVIS W CON 12/11/2022 9:38 PM FINDINGS: Lungs: Fine linear bibasilar atelectasis or scarring. No airspace consolidation. Heart: Normal heart size. Trace pericardial effusion. Liver: Normal. No mass. Gallbladder and bile ducts: Contracted gallbladder. No calcified gallstones. No bile duct dilatation. Pancreas: Normal. No ductal dilation. Spleen: Normal. No splenomegaly. Adrenal glands: Normal. No mass. Kidneys and ureters: Nonobstructing lower pole renal calculi bilaterally, 4 mm on the right and 2 mm on the left. No hydronephrosis or perinephric fluid. No discrete renal mass. Bilateral renal cortical scarring. No hydronephrosis. Mild right hydroureter. No ureteral stones. Stomach and bowel: Unremarkable stomach and duodenum. No ileus or bowel obstruction. Small bowel is within normal limits. Submucosal fat deposition within the wall of the ascending colon compatible with remote/chronic disease. Moderate colonic stool burden. Unremarkable rectum. Appendix: Normal appendix. Intraperitoneal space: Unremarkable. No free air. No significant fluid collection. Vasculature: Unremarkable. No abdominal aortic aneurysm. Lymph nodes: Unremarkable. No enlarged lymph nodes. Urinary bladder: Collapsed bladder. Reproductive: Uterus and ovaries are physiologic. Bones/joints: No acute osseous abnormality. Mild degenerative changes thoracolumbar spine and bilateral SI joints. Stable benign-appearing cystic bone lesion at the base of the right femoral neck, potentially focal fibrous dysplasia. Soft tissues: Tiny fat containing umbilical hernia. IMPRESSION: 1. Interval resolution of prior 5.6 mm right UVJ calculus. 2. Stable bilateral nephrolithiasis. No hydronephrosis. 3. Nonspecific mild right hydroureter. No ureteral stones. 4. Otherwise, no acute intra-abdominal or pelvic process. 5. Additional stable chronic and incidental findings.
--- NOTE | 2022-12-27 01:35 | HMH.EDGENADL ---
Discharge Plan Disposition Patient Disposition: Home, Self-Care Condition: Good Prescriptions Prescriptions: New phenazopyridine 200 mg tablet 200 mg PO Q8H PRN (Reason: pain) Qty: 20 0RF oxybutynin chloride 5 mg tablet 5 mg PO DAILY PRN (Reason: bladder spasms) Qty: 5 0RF No Action drospirenone-ethinyl estradiol 3-0.03 mg tablet 1 tab PO DAILY albuterol sulfate [Ventolin HFA] 90 mcg/actuation HFA aerosol inhaler 1 inh inhalation PRN cefdinir 300 mg capsule 300 mg PO BID Patient Comments: TAKE 1 CAPSULE BY MOUTH EVERY 12 HOURS FOR 10 DAYS fluconazole [Diflucan] 150 mg tablet 150 mg PO Q3D Qty: 2 0RF Rx Instructions: take 1 tab once; may repeat dose in 72 hours terconazole 0.8 % cream 1 appful vaginal HS 3 Days Qty: 20 0RF oxycodone 5 mg tablet 5 mg PO Q6H PRN (Reason: pain) Qty: 8 0RF Rx Instructions: Severe pain refractory to Tylenol and ibuprofen. tamsulosin [Flomax] 0.4 mg capsule 0.4 mg PO DAILY Qty: 14 0RF spironolactone 25 MG tablet 25 mg PO BID Referrals Follow up/Referrals: Jose Brunner MD [Primary Care Provider] - See instructions Activity Restrictions/Add. Instructions Additional Instructions/Restrictions: You were evaluated in the emergency department today. At this time, your labs and urine are reassuring. You have passed your kidney stone. Please follow-up with your primary care provider and your urologist. supervisor rubber covering your prescriptions for pain/bladder spasms and take as needed. Continue taking your antibiotics at home. You may also take Tylenol and ibuprofen at home as needed for pain. Orally hydrate is much as possible. Return to the emergency department for any new or worsening symptoms. Clinical Impressions Clinical Impression: Bladder spasms Instructions Patient Instructions: DI for Urinary Tract Infection (UTI), DI for Urinary Tract Infection in Children Discharge ED Provider: Romy Lopez General Adult HPI General Chief complaint: Urogenital-Female Stated complaint: Pain from kidney stone surgery 12/25/22 Time Seen by Provider: 12/27/22 01:18 Mode of Arrival: Family Vehicle Source of Information: Patient Limitations: No Limitations Description of Symptoms (Recalled from ER Triage Doc. by RN): 27 yo female presents with 15/10 urethral pain . According to patient she was seen less th an 2 weeks ago and diagnosed with a kidney stone and referred to dr hernandez @ [facility] in [place], [place] for removal if she didn't pass it. procedure was attempted on the in which she reports dr hernandez scraped my urethra and then sent her home stating he didn't see it. Patient presents with low abd pain, and intense urethral pain and dribbling instead of actively voiding. Afebrile. Denies n/v. History of Present Illness HPI narrative: This patient is a 27-year-old female with a history of recent right ureteral stone who had cystoscopy and ureteroscopy on Wednesday for retrieval of stone presenting for severe urethral pain. Patient reports that they were not able to retrieve a stone, and she was subsequently discharged home. She denies noticing passage of a stone at home. She states that she had been having some pain and discomfort since the procedure, however it acutely worsened tonight. She states that she has not been able to urinate since approximately 10:00 PM despite having severe urethral pain and urgency. She denies any fevers or other concerns. She notes that she had nausea and vomiting yesterday after the procedure, but she denies any vomiting today. Of note, she is currently on Keflex. Related Data Home Medications Medication Instructions Recorded Confirmed spironolactone 25 mg tablet 25 mg PO BID bp 08/26/21 12/09/22 albuterol sulfate 90 mcg/actuation 1 inh inhalation PRN 12/09/22 12/09/22 aerosol inhaler (Ventolin HFA) cefdinir 300 mg capsule 300 mg PO BID 12/09/22 12/09/22 drospirenone 3 mg-ethiny
[2022-12-27 01:45] LABS: Basophils # 0.1 K/mm3 (0-0.2); Basophils % 0.5 % (0.1-2.0); Eosinophils # 0.2 K/mm3 (0.0-0.4); Eosinophils % 1.4 % (0.1-12.0); Lymphocytes # 4.6 K/mm3 (0.7-4.5); Lymphocytes % 43.2 % (10-50); Mean Corpuscular HGB Conc 30.9 g/dL (31.8-35.4); Mean Corpuscular Hemoglobin 27.8 pg (27.0-31.2); Mean Corpuscular Volume 89.9 fl (81-99); Mean Platelet Volume 7.3 fl (7.4-10.4); Monocytes # 0.5 K/mm3 (0.1-1.0); Monocytes % 4.2 % (1.7-9.3); Neutrophils # 5.4 K/mm3 (1.8-7.8); Neutrophils % 50.6 % (37.0-80.0); Platelet Count 431 K/mm3 (142-424); Red Blood Count 4.67 M/mm3 (4.20-5.40); Red Cell Distribution Width 13.9 % (11.5-17.5); White Blood Count 10.7 K/mm3 (4.8-10.8)
[2022-12-27 01:48] LABS: Chloride 108 mmol/L (98-107); Sodium 139 mmol/L (136-145)
[2022-12-27 01:49] LABS: Potassium 3.8 mmoL/L (3.5-5.1)
[2022-12-27 01:50] LABS: HCG Qualitative, Serum Negative (Negative)
[2022-12-27 01:51] LABS: Alanine Aminotransferase 23 U/L (12-78); Albumin Level 3.9 g/dl (3.5-5.0); Albumin/Globulin Ratio 1.3 (1.1-1.8); Alkaline Phosphatase 91 U/L (38-126); Anion Gap 10.8 mEq/L (5-15); Aspartate Amino Transferase 23 U/L (14-36); Bilirubin,Total 0.3 mg/dl (0.2-1.3); Blood Urea Nitrogen 12 mg/dl (7-17); Carbon Dioxide 24 mmol/L (22.0-30.0); Creatinine Clearance Estimated 95 mL/min (50-200); Estimated Glomerular Filt Rate 100 ml/min (>60); GFR (African American) 121 ML/MIN (>60); Total Protein,Serum 6.9 g/dl (6.3-8.2)
[2022-12-27 01:52] LABS: Glucose 119 mg/dl (74-100)
[2022-12-27 01:57] LABS: Lactic Acid 1.5 mmol/L (0.7-2.1)
[2022-12-27 02:10] LABS: Microscopic, Urine URINE MICROSCOPIC (MICROSCOPIC)
[2022-12-27 02:12] LABS: Appearance,Urine CLEAR (Clear); Bilirubin,Urine Negative (Negative); Blood, Urine 1+ (Negative); Color,Urine YELLOW (Yellow); Glucose,Urine (UA) Negative (Negative); Ketones,Urine Negative (Negative); Leukocyte Esterase,Urine Negative (Negative); Nitrate,Urine Negative (Negative); Protein,Urine 1+ (Negative); Specific Gravity, Urine 1.025 (1.005-1.030); Urobilinogen,Urine 0.2 EU/dl (0.2)
[2022-12-27 02:22] LABS: Bacteria,Urine Trace /lpf; WBC,Urine Occasional #/hpf (0-3)
[2022-12-27 03:15] VITALS: BP 123/71; PULSE 78; RESP 19; TEMP 36.7; O2SAT 98
== END 2022-12-27 03:19 | disposition home or self-care (01) ==
PROVIDERS: Emergency Provider Emergency Medicine; PCP Internal Medicine Adolescent Medicine
DX: R10.2 Pelvic and perineal pain (principal); N32.9 Bladder disorder, unspecified; J45.909 Unspecified asthma, uncomplicated; G47.30 Sleep apnea, unspecified
CPT/HCPCS: 74176; 80053; 81001; 83605; 84703; 85025; 96361; 96374; 96375; 99285; J2405

== ENCOUNTER 2023-06-10 12:09 | Emergency (ER) | payer OTHER, SELFPAY ==
[2023-06-10 12:21] VITALS: BP 147/88; PULSE 98; RESP 16; TEMP 36.8; O2SAT 95; BMI 42.0
[2023-06-10 12:30] VITALS: BP 140/82; PULSE 97; O2SAT 95
[2023-06-10 12:30] LABS: Coronavirus 19, PCR Not Detected (NotDetected); Influenza A, PCR Not Detected (NotDetected); Influenza B, PCR Not Detected (NotDetected)
--- NOTE | 2023-06-10 12:32 | XR_ITS ---
FINAL REPORT CLINICAL HISTORY: cp soa asthma COMPARISON: 08/26/2021 FINDINGS: The heart size is normal. The mediastinum is normal. There is no focal infiltrate or edema. There are no pleural effusions. There is no pneumothorax. There is no osseous abnormality. IMPRESSION: No acute cardiopulmonary process Reviewed, Interpreted and Dictated by Juan Ramon Leal MD Transcribed by Elena Vazquez Authenticated and [facility]
--- NOTE | 2023-06-10 12:33 | ED_ITS ---
Discharge Plan Disposition Patient Disposition: Home, Self-Care Condition: Fair Prescriptions Prescriptions: New amoxicillin-pot clavulanate 875-125 mg tablet 1 tab PO BID 7 Days Qty: 14 0RF azithromycin 250 mg tablet See Rx Instructions .ROUTE .COMPLEX Qty: 6 0RF Rx Instructions: For 250 mg dose pack: take 500 mg today (day 1), then 250 mg for 4 days (days 2-5) No Action drospirenone-ethinyl estradiol 3-0.03 mg tablet 1 tab PO DAILY albuterol sulfate [Ventolin HFA] 90 mcg/actuation HFA aerosol inhaler 1 inh inhalation PRN cefdinir 300 mg capsule 300 mg PO BID Patient Comments: TAKE 1 CAPSULE BY MOUTH EVERY 12 HOURS FOR 10 DAYS fluconazole [Diflucan] 150 mg tablet 150 mg PO Q3D Qty: 2 0RF Rx Instructions: take 1 tab once; may repeat dose in 72 hours terconazole 0.8 % cream 1 appful vaginal HS 3 Days Qty: 20 0RF oxycodone 5 mg tablet 5 mg PO Q6H PRN (Reason: pain) Qty: 8 0RF Rx Instructions: Severe pain refractory to Tylenol and ibuprofen. tamsulosin [Flomax] 0.4 mg capsule 0.4 mg PO DAILY Qty: 14 0RF phenazopyridine 200 mg tablet 200 mg PO Q8H PRN (Reason: pain) Qty: 20 0RF oxybutynin chloride 5 mg tablet 5 mg PO DAILY PRN (Reason: bladder spasms) Qty: 5 0RF spironolactone 25 MG tablet 25 mg PO BID Referrals Follow up/Referrals: Jose Brunner MD [Primary Care Provider] - See instructions Activity Restrictions/Add. Instructions Additional Instructions/Restrictions: You were evaluated in the ER today for cough and shortness of breath. You are appropriate for discharge at this time but I am treating you for pneumonia. Take the prescribed antibiotics as directed, do not skip doses, do not stop taking them early. As discussed, use your home albuterol 2 puffs, every 4 hours for the next 48 hours, then you can reduce back to your normal use. Make an appointment with your primary care physician for reevaluation in 2 to 3 days. Return to the ER with any new, worsening, or otherwise concerning symptoms Clinical Impressions Clinical Impression: Asthma exacerbation Qualifiers: Asthma severity: unspecified severity Asthma persistence: unspecified Qualified Code(s): J45.901 - Unspecified asthma with (acute) exacerbation Pneumonia Qualifiers: Pneumonia type: due to unspecified organism Laterality: right Lung location: lower lobe of lung Qualified Code(s): J18.9 - Pneumonia, unspecified organism Discharge ED Provider: Jaimie Franks General Adult HPI General Chief complaint: Shortness of Breath/Dyspnea Stated complaint: shortness of breath, runny nose Time Seen by Provider: 06/10/23 12:22 Mode of Arrival: Ambulatory Source of Information: Patient Limitations: No Limitations Description of Symptoms (Recalled from ER Triage Doc. by RN): pt presents to ED with c/o lung pain and feeling short of air when she coughs. symptoms ongoing for a couple of days. pt reports she was seen by pcp, given mucinex but symptoms are persisting. History of Present Illness HPI narrative: This 27-year-old female with a history of asthma presents to the ER with concerns of lung pain and a feeling of shortness of breath when she coughs. She states she has had symptoms since Wednesday (4 days). She has seen her primary care physician who gave Mucinex, but her symptoms persist. She reports that at her PCP she allegedly had a low-grade fever but was not told what it was. Patient states she has been using her inhaler 2-3 times a day. She does take o ral contraceptive pills but has no history of blood clots, she denies leg swelling or pain. She states she has had poor oral intake due to her symptoms. Related Data Home Medications Medication Instructions Recorded Confirmed spironolactone 25 mg tablet 25 mg PO BID bp 08/26/21 12/09/22 albuterol sulfate 90 mcg/actuation 1 inh inhalation PRN 12/09/22 12/09/22 aerosol inhaler (Ventolin HFA) cefdinir 300 mg capsule 300 mg PO BID 12/09/22 12/09/22 drospirenone 3 mg-ethinyl 1 tab PO DAILY 12/09/22 12/09/22 estradiol 0.03 mg tablet Previous Rx's Medication Instructions Recorded fluconazole 150 mg tablet 150 mg PO Q3D 2 doses #2 tabs 12/09/22 (Diflucan) terconazole 0.8 % vaginal cream 1 appful vaginal HS 3 days #20 12/09/22 grams oxycodone 5 mg tablet 5 mg PO Q6H PRN pain #8 tabs 12/11/22 tamsulosin 0.4 mg capsule (Flomax) 0.4 mg PO DAILY #14 caps 12/11/22 oxybutynin chloride 5 mg tablet 5 mg PO DAILY PRN bladder spasms 12/27/22 #5 tabs phenazopyridine 200 mg tablet 200 mg PO Q8H PRN pain 6 doses #20 12/27/22 tabs amoxicillin 875 mg-potassium 1 tab PO BID 7 days #14 tabs 06/10/23 clavulanate 125 mg tablet azithromycin 250 mg tablet See Rx Instructions PO .COMPLEX #6 06/10/23 tabs Allergies Allergy/AdvReac Type Severity Reaction Status Date / Time prochlorperazine Allergy Unknown Verified 12/09/22 10:57 [From Compazine] promethazine Allergy Unknown Verified 12/09/22 10:57 [facility] Disclaimer: The information contained in this section may have been updated after the patient was seen, as this information can be updated by other users. Medical History Asthma with exacerbation Atypical chest pain Sleep apnea Surgical History Delivery by section S/P dilation and curettage [place] teeth extracted Family History Other Asthma Cancer Diabetes Fibromyalgia Kidney disease Social History Smoking Status: Never smoker second hand exposure: No alcohol intake: never substance use type: denies use current occupational status: employed Travel in the last 8 weeks: None household members: significant other and children housing: house number of children: 1 current occupational exposures/hazards: No ROS Obtained: Yes All systems reviewed & no additional complaints except as documented Constitutional Constitutional: Denies chills, Reports fever(s), Denies headache(s) and Denies weakness Eyes Eyes: Denies change in vision ENT Ears, Nose, Mouth, and Throat: Denies dizziness, Denies headache(s), Denies nasal congestion and Denies sore throat Cardiovascular Cardiovascular: Reports chest pain, Reports dyspnea and Denies leg edema Respiratory Respiratory: Reports cough and Reports dyspnea Gastrointestinal Gastrointestingal: Denies constipation, diarrhea, nausea or vomiting Genitourinary Female Genitourinary: Denies dysuria Musculoskeletal Musculoskeletal: Denies arthralgias, Denies myalgias, Denies numbness and Denies tingling Integumentary/Breasts Skin/Breast: Denies change in pigmentation Neurologic Neurologic: Denies dizziness, Denies headache(s), Denies numbness, Denies tingling and Denies weakness Physical Exam General General appearance: alert and in no apparent distress Head Head exam: atraumatic and normocephalic Eye Eye exam: Present PERRL and EOMI ENT ENT exam: Present mucous membranes moist Neck Neck exam: Present normal inspection and full ROM Chest Chest inspection: Present symmetric chest wall rise Respiratory Respiratory exam: Present normal lung sounds bilaterally; Absent respiratory distress, wheezes or stridor Cardiovascular Cardiovascular exam: Present normal rhythm and tachycardia Abdominal Exam Abdominal exam: Present soft; Absent distention or tenderness Extremities Exam Extremities exam: Present full ROM; Absent tenderness or edema Neurological Exam Neurological exam: Present alert and oriented X3; Absent motor sensory deficit Psychiatric Psychiatric exam: Present normal affect and normal mood Skin Skin exam: Present warm and dry Medical Decision Making Jim Inquiry Pt receiving controlled substance: No Vital Signs: 06/10/23 12:21 06/10/23 12:58 06/10/23 12:30 Temperature 98.3 F Temperature Source Oral Pulse Rate 121 H 97 H Pulse Rate [Left Radial] 98 H Respiratory Rate 16 Blood Pressure 139/78 140/82 Blood Pressure [Right Arm] 147/88 H Blood Pressure Mean [Right Arm] 107 Blood Pressure Source Automatic Cuff Automatic Cuff Blood Pressure Position Sitting Sitting 02 Sat by Pulse Oximetry 95 95 95 Oxygen Delivery Method Room Air Room Air Lab Data Lab Results 06/10/23 12:20: SARS-CoV-2 (PCR) Not detected, Influenza A Untype (PCR) Not detected, Influenza Type B (PCR) Not detected 06/10/23 12:53: Serum HCG, Qual Negative 06/10/23 12:58: WBC 7.9, RBC 5.41 H, Hgb 15.7, Hct 46.3, MCV 85.6, MCH 29.0, MCHC 33.9, RDW 13.7, Plt Count 308, MPV 7.3 L, Neut % (Auto) 47.7, Lymph % (Auto) 46.1, Sharp % (Auto) 2.6, Eos % (Auto) 1.9, Baso % (Auto) 1.8, Neut # (Auto) 3.8, Lymph # (Auto) 3.6, Sharp # (Auto) 0.2, Eos # (Auto) 0.2, Baso # (Auto) 0.1, D-Dimer 0.36, Sodium 137, Potassium 3.7, Chloride 106, Carbon Dioxide 24, Anion Gap 10.7, BUN 11, Creatinine 0.70, Estimated Creat Clear 95, Estimated GFR 100, Est GFR ( Amer) 121, Glucose 134 H, Calcium 9.1, Total Bilirubin 0.9, AST 30, ALT 33, Alkaline Phosphatase 87, Troponin I < 0.01, Total Protein 7.2, Albumin 4.2, Globulin 3.0, Albumin/Globulin Ratio 1.4 06/10/23 12:58 06/10/23 12:58 Orders (Tests/Meds): ED MEDICATIONS Discontinued Medications Generic Name Dose Route Start Last Admin Trade Name Freq PRN Reason Stop Dose Admin Albuterol/Ipratropium 9 ml 06/10/23 12:32 06/10/23 12:43 Ipratropium/Albuterol 3 Ml Neb IH 06/10/23 12:33 9 ml ONCE ONE Administration Dexamethasone 10 mg 06/10/23 14:54 06/10/23 15:11 Dexamethasone 4mg Tablet PO 06/10/23 14:55 10 mg ONCE ONE Administration Lactated Ringer's 1,000 mls @ 999 mls/hr 06/10/23 12:32 06/10/23 13:15 Lactated Ringer's 1000 Ml Bag IV 06/10/23 13:32 999 mls/hr .Q1H1M ONE Administration ORDERS Category Date Time Status CXR --portable [XR chest portable] Stat Exams 06/10/23 12:32 Taken CBC w/Auto Diff [Complete Blood Count Auto Diff] Stat Lab 06/10/23 12:58 Completed CMP [Comprehensive Metabolic Panel] Stat Lab 06/10/23 12:58 Completed D-Dimer Stat Lab 06/10/23 12:58 Completed Rapid PCR Covid and Flu A/B Stat Lab 06/10/23 12:20 Completed Serum [HCG Qualitative, Serum] Stat Lab 06/10/23 12:53 Completed Trop I [Troponin I] Stat Lab 06/10/23 12:58 Completed Troponin I Q3H Lab 06/10/23 15:45 Ordered Troponin I Q3H Lab 06/10/23 18:45 Ordered ECG initial Besson Routine Y 06/10/23 12:55 Completed HEART Score History (anamnesis): Slightly suspicious ECG: Normal Age: <45 years Risk factors: 1-2 risk factors Troponin: </= normal limit HEART Score: 1 Medical Decision Narrative: In summary, this 27year old female presents to the emergency department today with cough, chest pain, shortness of breath. On initial evaluation patient is hemodynamically stable, afebrile, saturating 95% on room air, she is mildly tachycardic with heart rate 100-110 on exam. No tenderness or swelling of the distal lower extremities, no erythema, negative Homans' sign. Differential diagnosis includes but is not limited to viral syndrome, pneumonia, ACS, PE, pleural effusion, asthma exacerbation. Comorbidities of current condition inclu de being on oral contraceptive pills increasing risk of clot as well as asthma increasing risk of exacerbation. Based on these concerns, I ordered DuoNeb treatments, chest x-ray, D-dimer, cardiac workup. ECG personally interpreted demonstrates sinus tachycardia, rate 118, normal axis, no interval abnormalities, no STEMI. Patient received DuoNebs for treatment. Labs personally reviewed demonstrate CBC with no leukocytosis or anemia, CMP without findings of kidney dysfunction, normal potassium, initial troponin less than 0.01. In the setting of patient having protracted course of chest disco mfort, I would anticipate if it was cardiac in nature she would have elevation of the troponin at this time, she also has a low heart score so repeat troponin was canceled. D-dimer was 0.36, does not require CT imaging. Negative COVID and influenza. XR personally interpreted demonstrates right perihilar changes concerning for developing pneumonia. See radiology read for final interpretation. This is a new development compared to her prior chest x-ray from August 2021 which I reviewed. On reassessment after receiving DuoNeb, patient had had improvement of symptoms. She is reassured by her workup. She received one-time dose of dexamethasone for continued inflammatory control, I gave instructions for increased use of albuterol for the next 48 hours for asthma exacerbation, and I prescribed Augmentin and azithromycin for outpatient management. Patient was given instructions on symptomatic management, follow up instructions, and return precautions for the emergency department. Patient indicated understanding and was discharged in stable condition. Critical Care Critical Care Time Critical Care Time: No
[2023-06-10] MEDS: IPRATROPIUM/ALBUTEROL 3 ML NEB 9 ML IH (12:43)
--- NOTE | 2023-06-10 12:55 | ECG_ITS ---
APPROVED REPORT Exam: Resting ECG HR:118 bpm ECG Measurements Heart Rate 118 AXES KS 125 P 45 QRSd 92 QRS 20 QT 333 T 11 QTc 403 Conclusion SINUS TACHYCARDIA NONSPECIFIC T-WAVE ABNORMALITY ABNORMAL RHYTHM ECG UNCONFIRMED REPORT Electronically signed by : Jose Brunner MD 06/11/2023 07:47:54
[2023-06-10 12:58] VITALS: BP 139/78; PULSE 121; O2SAT 95
[2023-06-10 13:05] LABS: Basophils # 0.1 K/mm3 (0-0.2); Basophils % 1.8 % (0.1-2.0); Eosinophils # 0.2 K/mm3 (0.0-0.4); Eosinophils % 1.9 % (0.1-12.0); Hematocrit 46.3 % (37.0-47.0); Hemoglobin 15.7 g/dL (12.2-16.2); Lymphocytes # 3.6 K/mm3 (0.7-4.5); Lymphocytes % 46.1 % (10-50); Mean Corpuscular HGB Conc 33.9 g/dL (31.8-35.4); Mean Corpuscular Volume 85.6 fl (81-99); Mean Platelet Volume 7.3 fl (7.4-10.4); Monocytes # 0.2 K/mm3 (0.1-1.0); Monocytes % 2.6 % (1.7-9.3); Neutrophils # 3.8 K/mm3 (1.8-7.8); Neutrophils % 47.7 % (37.0-80.0); Platelet Count 308 K/mm3 (142-424); Red Blood Count 5.41 M/mm3 (4.20-5.40); Red Cell Distribution Width 13.7 % (11.5-17.5); White Blood Count 7.9 K/mm3 (4.8-10.8)
[2023-06-10] MEDS: LACTATED RINGERS 1000ML 1,000 ML 999 ML IV (13:15)
[2023-06-10 13:18] LABS: Alanine Aminotransferase 33 U/L (12-78); Albumin Level 4.2 g/dl (3.5-5.0); Albumin/Globulin Ratio 1.4 (1.1-1.8); Alkaline Phosphatase 87 U/L (38-126); Anion Gap 10.7 mEq/L (5-15); Aspartate Amino Transferase 30 U/L (14-36); Bilirubin,Total 0.9 mg/dl (0.2-1.3); Blood Urea Nitrogen 11 mg/dl (7-17); Calcium 9.1 mg/dl (8.4-10.2); Carbon Dioxide 24 mmol/L (22.0-30.0); Chloride 106 mmol/L (98-107); Creatinine Clearance Estimated 95 mL/min (50-200); Estimated Glomerular Filt Rate 100 ml/min (>60); GFR (African American) 121 ML/MIN (>60); Glucose 134 mg/dl (74-100); Potassium 3.7 mmoL/L (3.5-5.1); Sodium 137 mmol/L (136-145); Total Protein,Serum 7.2 g/dl (6.3-8.2)
[2023-06-10 13:24] LABS: D-Dimer 0.36 ug/mL (0.0-0.5)
[2023-06-10 13:38] LABS: Troponin I < 0.01 ng/ml (0.00-0.034)
[2023-06-10 14:36] LABS: HCG Qualitative, Serum Negative (Negative)
[2023-06-10] MEDS: DEXAMETHASONE 4MG TABLET 10 MG PO (15:11)
[2023-06-10 15:41] VITALS: BP 135/70; PULSE 89; RESP 18; TEMP 36.7; O2SAT 97
== END 2023-06-10 15:43 | disposition home or self-care (01) ==
PROVIDERS: Emergency Provider Emergency Medicine; PCP Internal Medicine Adolescent Medicine
DX: J45.901 Unspecified asthma with (acute) exacerbation (principal); J18.9 Pneumonia, unspecified organism; G47.30 Sleep apnea, unspecified; R00.0 Tachycardia, unspecified
CPT/HCPCS: 71045; 80053; 84484; 84703; 85025; 85378; 87636; 93005; 96360; 99285

== ENCOUNTER 2023-06-11 08:09 | Emergency (ER) | payer OTHER, SELFPAY ==
[2023-06-11 08:10] VITALS: BP 151/112; PULSE 106; RESP 15; TEMP 36.7; O2SAT 94; BMI 42.0
--- NOTE | 2023-06-11 08:11 | ED_ITS ---
Discharge Plan Disposition Patient Disposition: Home, Self-Care Condition: Good Prescriptions Prescriptions: New prednisone 20 mg tablet 20 mg PO BID 5 Days Qty: 10 0RF ipratropium-albuterol 0.5 mg-3 mg(2.5 mg base)/3 mL solution for nebulization 3 ml inhalation Q6H PRN (Reason: wheezing) 5 Days Qty: 90 0RF ondansetron 4 mg tablet,disintegrating 4 mg PO Q8H PRN (Reason: nausea and vomiting) 5 Days Qty: 10 0RF Held albuterol sulfate [Ventolin HFA] 90 mcg/actuation HFA aerosol inhaler 1 inh inhalation PRN Hold Instructions: Resume on 06/17/23. Discontinued fluconazole [Diflucan] 150 mg tablet 150 mg PO Q3D Qty: 2 0RF Rx Instructions: take 1 tab once; may repeat dose in 72 hours No Action drospirenone-ethinyl estradiol 3-0.03 mg tablet 1 tab PO DAILY cefdinir 300 mg capsule 300 mg PO BID Patient Comments: TAKE 1 CAPSULE BY MOUTH EVERY 12 HOURS FOR 10 DAYS terconazole 0.8 % cream 1 appful vaginal HS 3 Days Qty: 20 0RF oxycodone 5 mg tablet 5 mg PO Q6H PRN (Reason: pain) Qty: 8 0RF Rx Instructions: Severe pain refractory to Tylenol and ibuprofen. tamsulosin [Flomax] 0.4 mg capsule 0.4 mg PO DAILY Qty: 14 0RF phenazopyridine 200 mg tablet 200 mg PO Q8H PRN (Reason: pain) Qty: 20 0RF oxybutynin chloride 5 mg tablet 5 mg PO DAILY PRN (Reason: bladder spasms) Qty: 5 0RF spironolactone 25 MG tablet 25 mg PO BID amoxicillin-pot clavulanate 875-125 mg tablet 1 tab PO BID 7 Days Qty: 14 0RF azithromycin 250 mg tablet See Rx Instructions .ROUTE .COMPLEX Qty: 6 0RF Rx Instructions: For 250 mg dose pack: take 500 mg today (day 1), then 250 mg for 4 days (days 2-5) Referrals Follow up/Referrals: Jose Brunner MD [Primary Care Provider] - See instructions Activity Restrictions/Add. Instructions Additional Instructions/Restrictions: Please use the DuoNebs as needed. Please take the course of steroids. I would recommend you continue the course of antibiotics. Please return with any new or worsening symptoms. Please continue to drink plenty of liquids. Clinical Impressions Clinical Impression: Asthma exacerbation Qualifiers: Asthma severity: moderate Asthma persistence: persistent Qualified Code(s): J45.41 - Moderate persistent asthma with (acute) exacerbation Discharge ED Provider: Srikanth Zapata General Adult HPI General Chief complaint: Shortness of Breath/Dyspnea Stated complaint: shortness of breath, cough Time Seen by Provider: 06/11/23 08:10 History of Present Illness HPI narrative: Patient presents with a chief complaint of shortness of breath, which started several days ago. She was evaluated yesterday and diagnosed with community- acquired pneumonia. She additionally reports history of asthma, with exacerbations associated with pets, seasonal changes, seasonal allergies. She denies any chills but has had fevers with a Tmax of 100.6 recorded at home. She has had associated cough that is nonproductive. Her children did have an upper respiratory illness recently. She did come into contact with a pet recently which occurred shortly prior to the onset of her symptoms. She was prescribed 2 antibiotics yesterday, negative D-dimer, negative troponin. She was tachycardic yesterday during her visit and arrives tachycardic today. She does report markedly decreased p.o. intake. This is associated with nausea. Her chief complaint is dyspnea at this time. She denies any pain, she denies any leg pain or swelling. She denies any abdominal pain. She additionally was prescribed albuterol inhaler as needed but has not used it today. She reports she was administered DuoNeb yesterday with marked improvement of symptoms. Related Data Home Medications Medication Instructions Recorded Confirmed spironolactone 25 mg tablet 25 mg PO BID bp 08/26/21 12/09/22 albuterol sulfate 90 mcg/actuation 1 inh inhalation PRN 12/09/22 12/09/22 aerosol inhaler (Ventolin HFA) cefdinir 300 mg capsule 300 mg PO BID 12/09/22 12/09/22 drospirenone 3 mg-ethinyl 1 tab PO DAILY 12/09/22 12/09/22 estradiol 0.03 mg tablet Previous Rx's Medication Instructions Recorded terconazole 0.8 % vaginal cream 1 appful vaginal HS 3 days #20 12/09/22 grams oxycodone 5 mg tablet 5 mg PO Q6H PRN pain #8 tabs 12/11/22 tamsulosin 0.4 mg capsule (Flomax) 0.4 mg PO DAILY #14 caps 12/11/22 oxybutynin chloride 5 mg tablet 5 mg PO DAILY PRN bladder spasms 12/27/22 #5 tabs phenazopyridine 200 mg tablet 200 mg PO Q8H PRN pain 6 doses #20 12/27/22 tabs amoxicillin 875 mg-potassium 1 tab PO BID 7 days #14 tabs 06/10/23 clavulanate 125 mg tablet azithromycin 250 mg tablet See Rx Instructions PO .COMPLEX #6 06/10/23 tabs ipratropium 0.5 mg-albuterol 3 mg 3 ml inhalation Q6H PRN wheezing 5 06/11/23 (2.5 mg base)/3 mL nebulization days #90 mL soln ondansetron 4 mg disintegrating 4 mg PO Q8H PRN nausea and 06/11/23 tablet vomiting 5 days #10 tabs prednisone 20 mg tablet 20 mg PO BID 5 days #10 tabs 06/11/23 Allergies Allergy/AdvReac Type Severity Reaction Status Date / Time prochlorperazine Allergy Unknown Verified 12/09/22 10:57 [From Compazine] promethazine Allergy Unknown Verified 12/09/22 10:57 [facility] Disclaimer: The information contained in this section may have been updated after the patient was seen, as this information can be updated by other users. Medical History Asthma with exacerbation Atypical chest pain Sleep apnea Surgical History Delivery by section S/P dilation and curettage [place] teeth extracted Family History Other Asthma Cancer Diabetes Fibromyalgia Kidney disease Social History Smoking Status: Never smoker second hand exposure: No alcohol intake: never substance use type: denies use current occupational status: employed Travel in the last 8 weeks: None household members: significant other and children housing: house number of children: 1 current occupational exposures/hazards: No ROS Obtained: Yes Systems reviewed as appropriate & no additional complaints except as documented As per HPI Physical Exam General General appearance: alert, in no apparent distress and other (Frequent nonprodu ctive cough) Head Head exam: atraumatic and normocephalic Eye Eye exam: Present normal appearance Neck Neck exam: Present normal inspection Chest Chest inspection: Present normal inspection and symmetric chest wall rise Respiratory Respiratory exam: Present normal lung sounds bilaterally and wheezes; Absent respiratory distress Cardiovascular Cardiovascular exam: Present regular rate and normal rhythm Abdominal Exam Abdominal exam: Present soft Neurological Exam Neurological exam: Present alert and oriented X3 Psychiatric Psychiatric exam: Present normal affect and normal mood Skin Skin exam: Present warm and dry Medical Decision Making Medical Records Medical records reviewed: Yes I reviewed the patient's medical records. Jim Inquiry Pt receiving controlled substance: No Vital Signs: 06/11/23 08:10 06/11/23 08:20 06/11/23 08:35 Temperature 98.1 F Temperature Source Oral Pulse Rate 98 H 107 H Pulse Rate [Left Radial] 106 H Respiratory Rate 15 Blood Pressure 166/101 H 177/117 H Blood Pressure [Right Arm] 151/112 H Blood Pressure Mean 122 132 Blood Pressure Mean [Right Arm] 125 02 Sat by Pulse Oximetry 94 L 94 L 95 Oxygen Delivery Method Room Air Room Air Room Air 06/11/23 09:00 06/11/23 09:46 Temperature 98.0 F Temperature Source Pulse Rate 86 108 H Pulse Rate [Left Radial] Respiratory Rate 19 Blood Pressure 149/91 H 151/98 H Blood Pressure [Right Arm] Blood Pressure Mean 110 Blood Pressure Mean [Right Arm] 02 Sat by Pulse Oximetry 97 Oxygen Delivery Method Room Air Room Air Orders (Tests/Meds): ED MEDICATIONS Discontinued Medications Generic Name Dose Route Start Last Admin Trade Name Freq PRN Reason Stop Dose Admin Albuterol/Ipratropium 3 ml 06/11/23 08:32 06/11/23 08:37 Ipratropium/Albuterol 3 Ml Neb 06/11/23 08:33 3 ml ONCE ONE Administration Prednisone 40 mg 06/11/23 08:32 06/11/23 08:37 Prednisone 20mg Tab PO 06/11/23 08:33 40 mg ONCE ONE Administration Medical Decision Narrative: Patient with history and exam per above presenting for evaluation of shortness of breath Diagnoses considered include reactive airway disease, asthma, bronchitis, pneumonia, reassuring workup during recent ED visit for pulmonary embolism or ACS ED workup and treatment included: ED MEDICATIONS Discontinued Medications Generic Name Dose Route Start Last Admin Trade Name Janes PRN Reason Stop Dose Admin Albuterol/Ipratropium 3 ml 06/11/23 08:32 06/11/23 08:37 Ipratropium/Albuterol 3 Ml Neb IH 06/11/23 08:33 3 ml ONCE ONE Administration Prednisone 40 mg 06/11/23 08:32 06/11/23 08:37 Prednisone 20mg Tab PO 06/11/23 08:33 40 mg ONCE ONE Administration No further workup is indicated at this time, patient had improvement of symptoms after administration of steroids and DuoNeb, I believe patient's symptoms are likely largely in part due to asthma exacerbation, for this reason she will be prescribed course of steroids, it is reasonable to continue antibiotics given reported fevers at home, will follow-up closely with primary care provider, additionally was prescribed DuoNeb I discussed my clinical impression with patient and answered all questions. At this time, given reassuring workup and exam, I discussed that I have a low index of suspicion for any acute pathology necessitating inpatient management. Specific return precautions were given, with understanding and agreement. Patient will follow up with primary care provider as needed. Critical Care Critical Care Time Critical Care Time: No
[2023-06-11 08:20] VITALS: BP 166/101; PULSE 98; O2SAT 94
[2023-06-11 08:35] VITALS: BP 177/117; PULSE 107; O2SAT 95
[2023-06-11] MEDS: IPRATROPIUM/ALBUTEROL 3 ML NEB IH (08:37)
[2023-06-11] MEDS: predniSONE 20MG TAB 40 MG PO (08:37)
[2023-06-11 09:00] VITALS: BP 149/91; PULSE 86; O2SAT 97
[2023-06-11 09:46] VITALS: BP 151/98; PULSE 108; RESP 19; TEMP 36.7; O2SAT 94
== END 2023-06-11 09:47 | disposition home or self-care (01) ==
PROVIDERS: Emergency Provider Emergency Medicine; PCP Internal Medicine Adolescent Medicine
DX: J45.41 Moderate persistent asthma with (acute) exacerbation (principal); G47.30 Sleep apnea, unspecified
CPT/HCPCS: 99283

== ENCOUNTER 2023-06-24 21:42 | Emergency (ER) | payer OTHER, SELFPAY ==
[2023-06-24 21:44] VITALS: BP 150/96; PULSE 86; RESP 16; TEMP 36.8; O2SAT 97; BMI 42.0
--- NOTE | 2023-06-24 22:56 | XR_ITS ---
PROCEDURE INFORMATION: Exam: XR Right Elbow Exam date and time: 06/24/2023 11:04 PM Age: 27 years old Clinical indication: Pain; Elbow; Right; Additional info: Fall/pain TECHNIQUE: Imaging protocol: Radiologic exam of the right elbow. Views: 3 or more views. COMPARISON: CR XR FOREARM RT 2V 06/24/2023 11:03 PM FINDINGS: Bones/joints: Normal. Soft tissues: Normal. IMPRESSION: No acute findings.
--- NOTE | 2023-06-24 22:56 | XR_ITS ---
PROCEDURE INFORMATION: Exam: XR Right Forearm Exam date and time: 06/24/2023 11:03 PM Age: 27 years old Clinical indication: Pain; Lower or forearm; Right; Additional info: Fall/pain TECHNIQUE: Imaging protocol: Radiologic exam of the right forearm. Views: 2 views. COMPARISON: CR XR WRIST RT MIN 3V 06/24/2023 11:01 PM FINDINGS: Bones/joints: Normal. Soft tissues: Normal. IMPRESSION: No acute findings.
--- NOTE | 2023-06-24 22:56 | XR_ITS ---
PROCEDURE INFORMATION: Exam: XR Right Wrist Exam date and time: 06/24/2023 11:01 PM Age: 27 years old Clinical indication: Pain; Wrist; Right; Additional info: Fall/pain TECHNIQUE: Imaging protocol: Radiologic exam of the right wrist. Views: 3 or more views. COMPARISON: No relevant prior studies available. FINDINGS: Bones/joints: Normal. Soft tissues: Normal. IMPRESSION: No acute findings.
[2023-06-24 22:57] VITALS: PULSE 85
[2023-06-24] MEDS: ACETAMINOPHEN 500MG TAB 1000 MG PO (23:32)
[2023-06-24] MEDS: IBUPROFEN 400 MG TABLET 800 MG PO (23:33)
--- NOTE | 2023-06-24 23:33 | ED_ITS ---
Discharge Plan Disposition Patient Disposition: Home, Self-Care Condition: Good Prescriptions Prescriptions: No Action drospirenone-ethinyl estradiol 3-0.03 mg tablet 1 tab PO DAILY albuterol sulfate [Ventolin HFA] 90 mcg/actuation HFA aerosol inhaler 1 inh inhalation PRN Hold Instructions: Resume on 06/17/23. cefdinir 300 mg capsule 300 mg PO BID Patient Comments: TAKE 1 CAPSULE BY MOUTH EVERY 12 HOURS FOR 10 DAYS terconazole 0.8 % cream 1 appful vaginal HS 3 Days Qty: 20 0RF oxycodone 5 mg tablet 5 mg PO Q6H PRN (Reason: pain) Qty: 8 0RF Rx Instructions: Severe pain refractory to Tylenol and ibuprofen. tamsulosin [Flomax] 0.4 mg capsule 0.4 mg PO DAILY Qty: 14 0RF phenazopyridine 200 mg tablet 200 mg PO Q8H PRN (Reason: pain) Qty: 20 0RF oxybutynin chloride 5 mg tablet 5 mg PO DAILY PRN (Reason: bladder spasms) Qty: 5 0RF spironolactone 25 MG tablet 25 mg PO BID amoxicillin-pot clavulanate 875-125 mg tablet 1 tab PO BID 7 Days Qty: 14 0RF azithromycin 250 mg tablet See Rx Instructions .ROUTE .COMPLEX Qty: 6 0RF Rx Instructions: For 250 mg dose pack: take 500 mg today (day 1), then 250 mg for 4 days (days 2-5) prednisone 20 mg tablet 20 mg PO BID 5 Days Qty: 10 0RF ipratropium-albuterol 0.5 mg-3 mg(2.5 mg base)/3 mL solution for nebulization 3 ml inhalation Q6H PRN (Reason: wheezing) 5 Days Qty: 90 0RF ondansetron 4 mg tablet,disintegrating 4 mg PO Q8H PRN (Reason: nausea and vomiting) 5 Days Qty: 10 0RF Referrals Follow up/Referrals: Provider,Referral, MD [Primary Care Provider] - See instructions Activity Restrictions/Add. Instructions Additional Instructions/Restrictions: You were evaluated in the emergency department today. Take Tylenol and ibuprofen at home as needed for pain. Rest, ice, and elevate the area. Follow- up with your primary care provider for the next 2 to 3 days if your pain does not improve. Return to the emergency department for new or worsening symptoms. Clinical Impressions Clinical Impression: Contusion of forearm, right Instructions Patient Instructions: DI for Arm Pain Discharge ED Provider: Romy Lopez General Adult HPI General Chief complaint: Extremity Injury, Upper Stated complaint: right arm injury 2100 06/24/23 Time Seen by Provider: 06/24/23 23:06 Mode of Arrival: Ambulatory Source of Information: Patient Limitations: No Limitations Description of Symptoms (Recalled from ER Triage Doc. by RN): pt reports trip and fall against wall at 2030 tonight, complains of right forearm pain, reports icing but has not taken any medications History of Present Illness HPI narrative: This patient is a 27-year-old female without significant past medical history presenting to the emergency department for evaluation with concern for right forearm pain. Patient reports that she tripped going up stairs and fell into a wall at approximately 8:30 PM. She fell with all of her weight into her right forearm and complains of pain in her forearm at this time. No head injury, loss of consciousness, or other injuries noted. She iced it but has not taken any medications for pain. No other concerns, such as numbness, tingling, or other issues. She was well prior to this. Related Data Home Medications Medication Instructions Recorded Confirmed spironolactone 25 mg tablet 25 mg PO BID bp 08/26/21 12/09/22 albuterol sulfate 90 mcg/actuation 1 inh inhalation PRN 12/09/22 12/09/22 aerosol inhaler (Ventolin HFA) cefdinir 300 mg capsule 300 mg PO BID 12/09/22 12/09/22 drospirenone 3 mg-ethinyl 1 tab PO DAILY 12/09/22 12/09/22 estradiol 0.03 mg tablet Previous Rx's Medication Instructions Recorded terconazole 0.8 % vaginal cream 1 appful vaginal HS 3 days #20 12/09/22 grams oxycodone 5 mg tablet 5 mg PO Q6H PRN pain #8 tabs 12/11/22 tamsulosin 0.4 mg capsule (Flomax) 0.4 mg PO DAILY #14 caps 12/11/22 oxybutynin chloride 5 mg tablet 5 mg PO DAILY PRN bladder spasms 12/27/22 #5 tabs phenazopyridine 200 mg tablet 200 mg PO Q8H PRN pain 6 doses #20 12/27/22 tabs amoxicillin 875 mg-potassium 1 tab PO BID 7 days #14 tabs 06/10/23 clavulanate 125 mg tablet azithromycin 250 mg tablet See Rx Instructions PO .COMPLEX #6 06/10/23 tabs ipratropium 0.5 mg-albuterol 3 mg 3 ml inhalation Q6H PRN wheezing 5 06/11/23 (2.5 mg base)/3 mL nebulization days #90 mL soln ondansetron 4 mg disintegrating 4 mg PO Q8H PRN nausea and 06/11/23 tablet vomiting 5 days #10 tabs prednisone 20 mg tablet 20 mg PO BID 5 days #10 tabs 06/11/23 Allergies Allergy/AdvReac Type Severity Reaction Status Date / Time prochlorperazine Allergy Unknown Verified 12/09/22 10:57 [From Compazine] promethazine Allergy Unknown [facility] 12[facility]09[facility]22 10:57 [facility] Dis[facility]: The information contained in this section may have been updated after the patient was seen, as this information can be updated by other users. Medical History Asthma with exacerbation Atypical chest pain Sleep apnea Surgical History Delivery by section S/P dilation and curettage [place] teeth extracted Family History Other Asthma Cancer Diabetes Fibromyalgia Kidney disease Social History Smoking Status: Never smoker second hand exposure: No alcohol intake: never substance use type: denies use current occupational status: employed Travel in the last 8 weeks: None household members: significant other and children housing: house number of children: 1 current occupational exposures/hazards: No ROS Obtained: Yes All systems reviewed & no additional complaints except as documented Physical Exam General General appearance: alert and in no apparent distress Head Head exam: atraumatic and normocephalic Eye Eye exam: Present normal appearance, PERRL and EOMI ENT ENT exam: Present normal exam, normal oropharynx, mucous membranes moist and normal external ear exam Neck Neck exam: Present normal inspection, full ROM and trachea midline; Absent tenderness Chest Chest inspection: Present normal inspection and symmetric chest wall rise; Absent tenderness Respiratory Respiratory exam: Present normal lung sounds bilaterally; Absent respiratory dis tress, wheezes, stridor or accessory muscle use Cardiovascular Cardiovascular exam: Present regular rate and normal rhythm Abdominal Exam Abdominal exam: Present soft; Absent distention, tenderness or guarding Extremities Exam Extremities exam: Present full ROM, tenderness (Tenderness to palpation of the mid forearm with no obvious deformity. All compartment soft. Neurovascularly intact distally.) and normal capillary refill; Absent edema or joint swelling Back Exam Back exam: Present normal inspection and full ROM; Absent tenderness Neurological Exam Neurological exam: Present alert, oriented X3, CN II-XII intact and normal gait; Absent motor sensory deficit Psychiatric Psychiatric exam: Present normal affect and normal mood Skin Skin exam: Present warm and dry Medical Decision Making Medical Records Medical records reviewed: Yes I reviewed the patient's medical records. Jim Inquiry Pt receiving controlled substance: No Vital Signs: 06/24/23 21:44 06/24/23 22:57 06/24/23 23:49 Temperature 98.2 F 98.2 F Temperature Source Oral Oral Pulse Rate 88 Pulse Rate [Left] 86 Pulse Rate [Right] 85 Respiratory Rate 16 18 Blood Pressure 128/79 Blood Pressure [Left Arm] 150/96 H Blood Pressure Mean [Left Arm] 114 Blood Pressure Source Automatic Cuff Blood Pressure Source [Left Arm] Automatic Cuff Blood Pressure Position Sitting Blood Pressure Position [Left Arm] Sitting 02 Sat by Pulse Oximetry 97 Oxygen Delivery Method Room Air Room Air Lab Data Lab results reviewed: Yes I reviewed the patient's lab results. Orders (Tests/Meds): ED MEDICATIONS Discontinued Medications Generic Name Dose Route Start Last Admin Trade Name Janes PRN Reason Stop Dose Admin Acetaminophen 1,000 mg 06/24/23 23:13 06/24/23 23:32 Acetaminophen 500mg Tab PO 06/24/23 23:14 1,000 mg ONCE ONE Administration Ibuprofen 800 mg 06/24/23 23:13 06/24/23 23:33 Ibuprofen 400 Mg Tablet PO 06/24/23 23:14 800 mg ONCE ONE Administration ORDERS Category Date Time Status XR elbow RT min 3V Stat Exams 06/24/23 22:56 Completed XR forearm RT 2V Stat Exams 06/24/23 22:56 Completed XR wrist RT min 3V Stat Exams 06/24/23 22:56 Completed Medical Decision Narrative: In summary, this patient is a 27-year-old female presenting to the Emergency Department for evaluation of right forearm pain after a mechanical fall. Differential diagnoses considered include but are not limited to fracture, contusion, strain/sprain, neurovascular injury. Ruling out the most morbid conditions drove assessment. On exam, the patient has no obvious deformity. All compartment soft, she is neurovascularly intact distally. Workup included radius of the right elbow, forearm, and wrist. Patient was given oral Tylenol and ibuprofen for symptomatic improvement of pain. I independently interpreted x-ray prior to the radiologist read and noted acute fracture. Please see their read for final interpretation. At this time, feel patient likely has contusion. She was given instructions for supportive management, strict return precautions, and she was discharged in stable condition with instructions for close follow-up with her primary care provider should her pain persist. Critical Care Critical Care Time Critical Care Time: No
[2023-06-24 23:49] VITALS: BP 128/79; PULSE 88; RESP 18; TEMP 36.8; O2SAT 98
== END 2023-06-24 23:50 | disposition home or self-care (01) ==
PROVIDERS: Emergency Provider Emergency Medicine
DX: S50.11XA Contusion of right forearm, initial encounter (principal); J45.909 Unspecified asthma, uncomplicated; G47.30 Sleep apnea, unspecified; W10.9XXA Fall (on) (from) unspecified stairs and steps, initial encounter
CPT/HCPCS: 73080; 73090; 73110; 99284

== ENCOUNTER 2023-07-22 19:29 | Emergency (ER) | payer OTHER, SELFPAY ==
[2023-07-22 19:42] VITALS: BP 134/85; PULSE 130; RESP 22; TEMP 36.8; O2SAT 95; BMI 41.7
--- NOTE | 2023-07-22 19:44 | ED_ITS ---
Discharge Plan Disposition Patient Disposition: Home, Self-Care Prescriptions Prescriptions: New promethazine 12.5 mg suppository 12.5 mg [place] TID PRN (Reason: nausea and vomiting) Qty: 12 0RF Rx Instructions: do not give 3rd daily dose after evening meal or within 4hr before bed ondansetron 4 mg tablet,disintegrating 4 mg PO Q6H PRN (Reason: nausea and vomiting) 5 Days Qty: 20 0RF No Action drospirenone-ethinyl estradiol 3-0.03 mg tablet 1 tab PO DAILY albuterol sulfate [Ventolin HFA] 90 mcg/actuation HFA aerosol inhaler 1 inh inhalation PRN Hold Instructions: Resume on 06/17/23. phenazopyridine 200 mg tablet 200 mg PO Q8H PRN (Reason: pain) Qty: 20 0RF spironolactone 25 mg tablet 50 mg PO BID ondansetron 4 mg tablet,disintegrating 4 mg PO Q8H PRN (Reason: nausea and vomiting) 5 Days Qty: 10 0RF Referrals Follow up/Referrals: Jose Brunner MD [Primary Care Provider] - See instructions Activity Restrictions/Add. Instructions Additional Instructions/Restrictions: I have prescribed you oral disintegrating tablets of Zofran as well as Phenergan suppositories if you are not able to tolerate anything by mouth. I know there have been some concerns in the past of acute dystonic reactions associated with this this is unlikely to be caused from Phenergan suppositories I does still prescribe but you do not have to get it filled if you do not want. Return with any intolerance of fluids. Significant worsening of abdominal pain or other concerns you may return as well. Clinical Impressions Clinical Impression: Nausea vomiting and diarrhea Instructions Patient Instructions: DI for Acute Abdominal Pain Discharge ED Provider: Sav Bean General Adult HPI General Chief complaint: Abdominal Pain Stated complaint: abd pain, V/D, unusually thirsty Time Seen by Provider: 07/22/23 19:39 History of Present Illness HPI narrative: Patient is a 27-year-old female presents today with nausea vomiting diarrhea and abdominal cramping that started about 7 hours ago. [place] fine this morning no sick contacts that she is aware of no fevers or chills. Abdomen is diffusely tender and crampy. No focality to it. Denies any other symptoms including bloo d in her stool or urine or vomit. Denies any significant past medical history. Related Data Home Medications Medication Instructions Recorded Confirmed albuterol sulfate 90 mcg/actuation 1 inh inhalation PRN 12/09/22 07/21/23 aerosol inhaler (Ventolin HFA) drospirenone 3 mg-ethinyl 1 tab PO DAILY 12/09/22 07/21/23 estradiol 0.03 mg tablet spironolactone 25 mg tablet 50 mg PO BID bp 07/21/23 07/21/23 Previous Rx's Medication Instructions Recorded phenazopyridine 200 mg tablet 200 mg PO Q8H PRN pain 6 doses #20 12/27/22 tabs ondansetron 4 mg disintegrating 4 mg PO Q8H PRN nausea and 06/11/23 tablet vomiting 5 days #10 tabs ondansetron 4 mg disintegrating 4 mg PO Q6H PRN nausea and 07/22/23 tablet vomiting 5 days #20 tabs promethazine 12.5 mg rectal 12.5 mg [place] TID PRN nausea and 07/22/23 suppository vomiting #12 ea Allergies Allergy/AdvReac Type Severity Reaction Status Date / Time prochlorperazine Allergy Unknown Verified 12/09/22 10:57 [From Compazine] promethazine Allergy Unknown Verified 12/09/22 10:57 [facility] Disclaimer: The information contained in this section may have been updated after the patient was seen, as this information can be updated by other users. Medical History Asthma with exacerbation Atypical chest pain Sleep apnea Surgical History Delivery by section S/P dilation and curettage [place] teeth extracted Family History Other Asthma Cancer Diabetes Fibromyalgia Kidney disease Social History Smoking Status: Never smoker second hand exposure: No alcohol intake: never substance use type: denies use current occupational status: employed Travel in the last 8 weeks: None household members: significant other and children housing: house number of children: 1 current occupational exposures/hazards: No ROS Obtained: Yes All systems reviewed & no additional complaints except as documented Physical Exam General General appearance: alert Respiratory Respiratory exam: Present normal lung sounds bilaterally Cardiovascular Cardiovascular exam: Present regular rate Abdominal Exam Abdominal exam: Present soft and tenderness (To deep palpation there is diffuse tenderness nonfocal no rebound or guarding); Absent distention Neurological Exam Neurological exam: Present alert and oriented X3 Medical Decision Making Jim Inquiry Pt receiving controlled substance: No Vital Signs: 07/22/23 19:42 07/22/23 20:17 Temperature 98.3 F 98.5 F Temperature Source Oral Oral Pulse Rate 110 H Pulse Rate [Left] 130 H Respiratory Rate 22 20 Blood Pressure 119/76 Blood Pressure [Right Arm] 134/85 Blood Pressure Mean [Right Arm] 101 Blood Pressure Source [Right Arm] Automatic Cuff Blood Pressure Position [Right Arm] Sitting 02 Sat by Pulse Oximetry 95 95 Oxygen Delivery Method Room Air Room Air Lab Data Lab results reviewed: Yes I reviewed the patient's lab results. Lab Results 07/22/23 19:40: WBC 10.8, RBC 5.50 H, Hgb 16.2, Hct 47.3 H, MCV 86.0, MCH 29.5, MCHC 34.3, RDW 14.0, Plt Count 319, MPV 7.2 L, Neut % (Auto) 90.6 H, Lymph % (Auto) 6.7 L, [place] % (Auto) 1.9, Eos % (Auto) 0.6, Baso % (Auto) 0.1, Neut # (Auto) 9.7 H, Lymph # (Auto) 0.7, [place] # (Auto) 0.2, Eos # (Auto) 0.1, Baso # (Auto) 0.0, Total Counted 100, Neutrophils % (Manual) 88 H, Lymphocytes % (Manual) 7 L, Monocytes % (Manual) 5, Platelet Estimate Normal, RBC Morphology Normal, Sodium 138, Potassium 4.0, Chloride 109 H, Carbon Dioxide 22, Anion Gap 11.0, BUN 18 H, Creatinine 0.70, Estimated Creat Clear 95, Estimated GFR 100, Est GFR ( Amer) 121, Glucose 125 H, Calcium 8.9, Total Bilirubin 1.0, AST 32, ALT 52, Alkaline Phosphatase 73, Total Protein 7.2, Albumin 4.2, Globulin 3.0, Albumin/Globulin Ratio 1.4, Lipase 42, Serum HCG, Qual Negative 07/22/23 19:40 02/08/24 19:40 Orders (Tests/Meds): ED MEDICATIONS Discontinued Medications Generic Name Dose Route Start Last Admin Trade Name Janes PRN Reason Stop Dose Admin Lactated Ringer's 1,000 mls @ 999 mls/hr 07/22/23 19:45 07/22/23 19:56 Lactated Ringer's 1000 Ml Bag IV 07/22/23 20:45 999 mls/hr .Q1H1M KATHY Administration Ketorolac Tromethamine 15 mg 07/22/23 19:43 07/22/23 19:55 Ketorolac 30mg/Ml Vial IV 07/22/23 19:44 15 mg ONCE ONE Administration Ondansetron HCl 4 mg 07/22/23 19:43 07/22/23 19:55 Ondansetron 4mg/2ml Vial IV 07/22/23 19:44 4 mg ONCE ONE Administration ORDERS Category Date Time Status CBC w/Auto Diff [Complete Blood Count Auto Diff] Stat Lab 07/22/23 19:40 Completed CMP [Comprehensive Metabolic Panel] Stat Lab 07/22/23 19:40 Completed HCG Qualitative, Serum Stat Lab 07/22/23 19:40 Completed Lipase Stat Lab 07/22/23 19:40 Completed Medical Decision Narrative: Well-appearing nontoxic female presents today with nausea vomiting diarrhea and abdominal cramping. Abdominal exam is nonfocal no peritonitis she does have some diffuse tenderness which is not out of the ordinary for viral gastroenteritis. I presume this is most likely viral gastroenteritis versus food poisoning. Her abdominal exam is not consistent with surgical pathology. Will give IV Zofran Toradol fluids in addition to blood test will reassess. Reassessment 9:09 PM patient feeling much better serial abdominal exam is benign she is tolerating p.o. she was discharged in stable and improved condition with return precautions emphasized. Critical Care Critical Care Time Critical Care Time: No
[2023-07-22] MEDS: KETOROLAC 30MG/ML VIAL 15 MG IV (19:55)
[2023-07-22] MEDS: ONDANSETRON 4MG/2ML VIAL 4 MG IV (19:55)
[2023-07-22] MEDS: LACTATED RINGERS 1000ML 1,000 ML 999 ML IV (19:56)
[2023-07-22 20:02] LABS: Basophils % 0.1 % (0.1-2.0); Eosinophils # 0.1 K/mm3 (0.0-0.4); Eosinophils % 0.6 % (0.1-12.0); Hematocrit 47.3 % (37.0-47.0); Hemoglobin 16.2 g/dL (12.2-16.2); Lymphocytes # 0.7 K/mm3 (0.7-4.5); Lymphocytes % 6.7 % (10-50); Mean Corpuscular HGB Conc 34.3 g/dL (31.8-35.4); Mean Corpuscular Hemoglobin 29.5 pg (27.0-31.2); Mean Platelet Volume 7.2 fl (7.4-10.4); Monocytes # 0.2 K/mm3 (0.1-1.0); Monocytes % 1.9 % (1.7-9.3); Neutrophils # 9.7 K/mm3 (1.8-7.8); Neutrophils % 90.6 % (37.0-80.0); Platelet Count 319 K/mm3 (142-424); White Blood Count 10.8 K/mm3 (4.8-10.8)
[2023-07-22 20:03] LABS: MANUAL DIFFERENTIAL MANUAL DIFFERENTIAL (MANUAL DIFF)
[2023-07-22 20:09] LABS: Alanine Aminotransferase 52 U/L (12-78); Albumin Level 4.2 g/dl (3.5-5.0); Albumin/Globulin Ratio 1.4 (1.1-1.8); Alkaline Phosphatase 73 U/L (38-126); Aspartate Amino Transferase 32 U/L (14-36); Blood Urea Nitrogen 18 mg/dl (7-17); Calcium 8.9 mg/dl (8.4-10.2); Carbon Dioxide 22 mmol/L (22.0-30.0); Chloride 109 mmol/L (98-107); Creatinine Clearance Estimated 95 mL/min (50-200); Estimated Glomerular Filt Rate 100 ml/min (>60); GFR (African American) 121 ML/MIN (>60); Glucose 125 mg/dl (74-100); Lipase 42 U/L (23-300); Sodium 138 mmol/L (136-145); Total Protein,Serum 7.2 g/dl (6.3-8.2)
[2023-07-22 20:12] LABS: HCG Qualitative, Serum Negative (Negative)
[2023-07-22 20:17] VITALS: BP 119/76; PULSE 110; RESP 20; TEMP 36.9; O2SAT 95
[2023-07-22 20:32] LABS: Lymphocytes % 7 % (10-50); Monocytes % 5 % (2-9); Neutrophils % 88 % (42-76); Platelet Estimate Normal; RBC Morphology Normal; Total Cells Counted 100
[2023-07-22 21:09] VITALS: BP 118/75; PULSE 80; RESP 20; TEMP 36.7; O2SAT 98
== END 2023-07-22 21:18 | disposition home or self-care (01) ==
PROVIDERS: Emergency Provider Student in an Organized Health Care Education/Training Program; PCP Internal Medicine Adolescent Medicine
DX: R10.9 Unspecified abdominal pain (principal); R11.2 Nausea with vomiting, unspecified; R19.7 Diarrhea, unspecified; G47.30 Sleep apnea, unspecified
CPT/HCPCS: 80053; 83690; 84703; 85007; 85025; 96361; 96374; 96375; 99285; J2405

== ENCOUNTER 2023-09-22 12:34 | Emergency (ER) | payer OTHER, SELFPAY ==
[2023-09-22 12:45] VITALS: PULSE 121; RESP 18; TEMP 36.7; O2SAT 98; BMI 42.7
--- NOTE | 2023-09-22 12:57 | EXP.UTC ---
Discharge Plan Disposition Patient Disposition: Home, Self-Care Condition: Good Prescriptions Prescriptions: New mupirocin 2 % ointment 1 applic topical TID 7 Days Qty: 15 0RF amoxicillin-pot clavulanate 875-125 mg Tablet 1 tab PO Q12H Qty: 20 0RF No Action drospirenone-ethinyl estradiol 3-0.03 mg tablet 1 tab PO DAILY albuterol sulfate [Ventolin HFA] 90 mcg/actuation HFA aerosol inhaler 1 inh inhalation PRN Hold Instructions: Resume on 06/17/23. phenazopyridine 200 mg tablet 200 mg PO Q8H PRN (Reason: pain) Qty: 20 0RF promethazine 12.5 mg suppository 12.5 mg IN TID PRN (Reason: nausea and vomiting) Qty: 12 0RF Rx Instructions: do not give 3rd daily dose after evening meal or within 4hr before bed ondansetron 4 mg tablet,disintegrating 4 mg PO Q6H PRN (Reason: nausea and vomiting) 5 Days Qty: 20 0RF spironolactone 25 mg tablet 50 mg PO BID ondansetron 4 mg tablet,disintegrating 4 mg PO Q8H PRN (Reason: nausea and vomiting) 5 Days Qty: 10 0RF Referrals Follow up/Referrals: Jose Brunner MD [Primary Care Provider] - See instructions Activity Restrictions/Add. Instructions Additional Instructions/Restrictions: Keep the wounds clean and dry. Follow up with your regular doctor. Take the antibiotics as directed and apply the topical antibiotics as directed. Make sure you stay in contact with the health department regarding the health of the dog. Watch the puncture wounds for signs of worsening infection, such as worsening redness, drainage, swelling, etc. GO TO THE ER FOR ANY WORSENING SYMPTOMS Clinical Impressions Clinical Impression: Dog bite, Need for Tdap vaccination Stand Alone Forms Stand Alone Forms: Work/School Release Instructions Patient Instructions: Amoxicillin and Clavulanic Acid, Tetanus, Diphtheria, Pertussis (Tdap) Vaccine, DI for Dog Bite Discharge ED Provider: [facility] General Stated complaint: bit by dog Time Seen by Provider: 09/22/23 12:57 History of Present Illness Provider Complaint: She states that she was bit by her own dog earlier today. She states that her dog was hit by an [employer] buggy. Her dog has a broke leg and it bit her when she was trying to help it. She has several superficial abrasions on her right forearm and right hand. Her tetanus immunization is not up to date. Related Data Home Medications Medication Instructions Recorded Confirmed albuterol sulfate 90 mcg/actuation 1 inh inhalation PRN 12/09/22 07/21/23 aerosol inhaler (Ventolin HFA) drospirenone 3 mg-ethinyl 1 tab PO DAILY 12/09/22 07/21/23 estradiol 0.03 mg tablet spironolactone 25 mg tablet 50 mg PO BID bp 07/21/23 07/21/23 Previous Rx's Medication Instructions Recorded phenazopyridine 200 mg tablet 200 mg PO Q8H PRN pain 6 doses #20 12/27/22 tabs ondansetron 4 mg disintegrating 4 mg PO Q8H PRN nausea and 06/11/23 tablet vomiting 5 days #10 tabs ondansetron 4 mg disintegrating 4 mg PO Q6H PRN nausea and 07/22/23 tablet vomiting 5 days #20 tabs promethazine 12.5 mg rectal 12.5 mg [place] TID PRN nausea and 07/22/23 suppository vomiting #12 ea amoxicillin 875 mg-potassium 1 tab PO Q12H #20 tabs 09/22/23 clavulanate 125 mg tablet mupirocin 2 % topical ointment 1 applic topical TID 7 days #15 09/22/23 grams Allergies Allergy/AdvReac Type Severity Reaction Status Date / Time prochlorperazine Allergy Unknown Verified 12/09/22 10:57 [From Compazine] promethazine Allergy Unknown Verified 12/09/22 10:57 [facility] Disclaimer: The information contained in this section may have been updated after the patient was seen, as this information can be updated by other users. Medical History Asthma with exacerbation Atypical chest pain Sleep apnea Surgical History Delivery by section S/P dilation and curettage [place] teeth extracted Family History Other Asthma Cancer Diabetes Fibromyalgia Kidney disease Social History Smoking Status: Never smoker second hand exposure: No alcohol intake: never substance use type: denies use current occupational status: employed Travel in the last 8 weeks: None household members: significant other and children housing: house number of children: 1 current occupational exposures/hazards: No ROS Obtained: Yes All systems reviewed & no additional complaints except as documented Constitutional Constitutional: Denies chills and Denies fever(s) Eyes Eyes: Denies eye discharge ENT Ears, Nose, Mouth, and Throat: Denies dizziness, Denies otalgia and Denies sore throat Cardiovascular Cardiovascular: Denies chest pain Respiratory Respiratory: Denies shortness of breath, Denies chest congestion, Denies cough, Denies stridor and Denies wheezing Gastrointestinal Gastrointestingal: Denies nausea or vomiting Musculoskeletal Musculoskeletal: Reports system reviewed and no additional complaints, except as documented and Denies arthralgias Integumentary/Breasts Skin/Breast: Reports as per HPI and Reports wounds Neurologic Neurologic: Denies dizziness and Denies paresthesias Allergic/Immunologic Allergic/Immunologic: Denies wheezing Physical Exam General General appearance: alert and in no apparent distress Head Head exam: atraumatic, normocephalic and normal inspection Eye Eye exam: Present normal appearance, PERRL and EOMI ENT ENT exam: Present normal exam, normal oropharynx, mucous membranes moist, TM's normal bilaterally and normal external ear exam Neck Neck exam: Present normal inspection, full ROM and trachea midline; Absent meningismus or lymphadenopathy Chest Chest inspection: Present normal inspection and symmetric chest wall rise; Absent tenderness Respiratory Respiratory exam: Present normal lung sounds bilaterally; Absent respiratory distress Cardiovascular Cardiovascular exam: Present regular rate and normal rhythm; Absent JVD Abdominal Exam Abdominal exam: Present soft and normal bowel sounds; Absent distention, tenderness or guarding Extremities Exam Extremities exam: Present normal inspection, full ROM and normal capillary refill; Absent calf tenderness Back Exam Back exam: Present normal inspection; Absent tenderness Neurological Exam Neurological exam: Present alert and oriented X3 Psychiatric Psychiatric exam: Present normal affect and normal mood Skin Skin exam: Present other (She has multiple superficial linear abrasions on her right forearm and the top of her right hand. no deep tissue damage, no foreign body noted. ) Lymphatic Lymphatic Findings: no adenopathy Medical Decision Making Medical Records Medical records reviewed: No I reviewed the patient's medical records. Jim Inquiry Pt receiving controlled substance: No
[2023-09-22] MEDS: TET/DIPHTH/PERT-ADULT 0.5ML SYRINGE 0.5 ML IM (13:52)
[2023-09-22 14:26] VITALS: BP 186/96; PULSE 78; RESP 18; TEMP 36.9; O2SAT 99
== END 2023-09-22 14:26 | disposition home or self-care (01) ==
PROVIDERS: Emergency Provider Nurse Practitioner Family; PCP Internal Medicine Adolescent Medicine
DX: S50.811A Abrasion of right forearm, initial encounter (principal); S60.511A Abrasion of right hand, initial encounter; J45.909 Unspecified asthma, uncomplicated; G47.30 Sleep apnea, unspecified; W54.0XXA Bitten by dog, initial encounter; Z23 Encounter for immunization
CPT/HCPCS: 90471; 90715; 99212; 99214; G0463

== ENCOUNTER 2023-11-08 15:51 | Emergency (ER) | payer BC, SELFPAY ==
[2023-11-08 16:40] VITALS: BP 124/85; PULSE 85; RESP 20; TEMP 36.8; O2SAT 96; BMI 42.0
--- NOTE | 2023-11-08 17:10 | EXP.UTC ---
Discharge Plan Disposition Patient Disposition: Home, Self-Care Condition: Good Prescriptions Prescriptions: No Action drospirenone-ethinyl estradiol 3-0.03 mg tablet 1 tab PO DAILY spironolactone 25 mg tablet 50 mg PO BID atomoxetine 40 mg capsule 40 mg PO DAILY Patient Comments: TAKE 1 CAPSULE BY MOUTH ONCE DAILY IN THE MORNING Dulera 100-5 mcg/actuation HFA aerosol inhaler 2 puff INHALATION BID Patient Comments: INHALE 2 PUFFS BY MOUTH TWICE DAILY Referrals Follow up/Referrals: Jose Brunner MD [Primary Care Provider] - See instructions Activity Restrictions/Add. Instructions Additional Instructions/Restrictions: Follow up with your Family Doctor for further work up and evaluation if symptoms persist Go straight to the Emergency Room if any life threateing symptoms Return if needed Make sure you are eating and drinking regularly Clinical Impressions Clinical Impression: Nausea Instructions Patient Instructions: Easy Bruising (Alternative Therapy), DI for Nausea -- Adult Discharge ED Provider: Bhargavi Hale [facility] General Stated complaint: dizzy, upset stomach, bruising all over Mode of Arrival: Ambulatory Source of Information: Patient Limitations: No Limitations Time Seen by Provider: 11/08/23 17:10 Description of Symptoms (Recalled from Triage Doc. by RN): PATIENT C/O DIZZINESS, NAUSEA, HEADACHE, MILD RIGHT SIDE PAIN, AND WEIRD BRUISING FOR APPROX 1.5 WEEKS HEENT Symptoms (Recalled from RN notes): Yes Resp Symptoms (Recalled from RN notes): No Skin Symptoms (Recalled from RN notes): No MS Symptoms (Recalled from RN notes): No Functional Status (Recalled from RN notes): WNL History of Present Illness Provider Complaint: Patient states that she has been having dizziness on and off, nausea and upset stomach, feeling tired and achy and states that she noticed some bruises on random areas on her body but doesnt recall doing anything to hurt herself States that she is currently on medication for high blood pressure and ADHD and she was reading on her adhd medication of some of the side effects like she is having State that she was worried about taking the medications together States that symptoms have been on and off for about 2 weeks Related Data Home Medications Medication Instructions Recorded Confirmed drospirenone 3 mg-ethinyl 1 tab PO DAILY 12/09/22 11/08/23 estradiol 0.03 mg tablet spironolactone 25 mg tablet 50 mg PO BID bp 07/21/23 11/08/23 atomoxetine 40 mg capsule 40 mg PO DAILY 11/08/23 11/08/23 mometasone-formoterol HFA 100 2 puff inhalation BID 11/08/23 11/08/23 mcg-5 mcg/actuation aerosol inhaler (Dulera) Allergies Allergy/AdvReac Type Severity Reaction Status Date / Time prochlorperazine Allergy Unknown Verified 12/09/22 10:57 [From Compazine] promethazine Allergy Unknown Verified 12/09/22 10:57 Worker's Comp Is this a Worker's Comp case?: No [facility] Disclaimer: The information contained in this section may have been updated after the patient was seen, as this information can be updated by other users. Medical History (Updated 11/08/23 @ 17:39 by Bhargavi Hale APRN) UTI (urinary tract infection) Kidney stones Depression Anxiety Migraine Hypertension Sleep apnea Atypical chest pain Asthma with exacerbation Surgical History S/P dilation and curettage [employer] teeth extracted Delivery by section Family History Other Asthma Cancer Diabetes Fibromyalgia Kidney disease Social History Smoking Status: Never smoker second hand exposure: No alcohol intake: never substance use type: denies use current occupational status: employed Travel in the last 8 weeks: None household members: significant other and children housing: house number of children: 1 current occupational exposures/hazards: No ROS Obtained: Yes All systems reviewed & no additional complaints except as documented and Yes Systems reviewed as appropriate & no additional complaints except as documented Constitutional Constitutional: Reports system reviewed and no additional complaints, except as documented and Reports as per HPI Eyes Eyes: Reports system reviewed and no additional complaints, except as documented and Reports as per HPI ENT Ears, Nose, Mouth, and Throat: Reports system reviewed and no additional complaints, except as documented, Reports as per HPI and Reports dizziness Cardiovascular Cardiovascular: Reports system reviewed and no additional complaints, except as documented and Reports as per HPI Respiratory Respiratory: Reports system reviewed and no additional complaints, except as documented and Reports as per HPI Gastrointestinal Gastrointestingal: Reports system reviewed and no additional complaints, except as documented, as per HPI and nausea; Denies abdominal pain, heartburn, hematemesis, hematochezia, loose stools or melena Genitourinary Female Genitourinary: Reports system reviewed and no additional complaints, except as documented and Reports as per HPI Musculoskeletal Musculoskeletal: Reports system reviewed and no additional complaints, except as documented and Reports as per HPI Integumentary/Breasts Skin/Breast: Reports system reviewed and no additional complaints, except as documented and Reports as per HPI Comments: small bruises popped up on her that she doesnt recall doing anything to hurt herself, small ones on her left upper arm, right side Neurologic Neurologic: Reports dizziness Physical Exam General General appearance: alert and in no apparent distress ENT ENT exam: Present mucous membranes moist Chest Chest inspection: Present normal inspection and symmetric chest wall rise Respiratory Respiratory exam: Present normal lung sounds bilaterally; Absent respiratory distress or wheezes Cardiovascular Cardiovascular exam: Present regular rate, normal rhythm and normal heart sounds Abdominal Exam Abdominal exam: Present soft; Absent distention, tenderness or normal bowel sounds Comment: no bruising noted on side Expanded Upper Extremity Exam Left: Shoulder exam: Present normal inspection and full ROM; Absent tenderness Arm exam: Present normal inspection Elbow exam: Present normal inspection Forearm/Wrist exam: Present normal inspection L/R Arms Bottom View: 1. small mulitcolored bruising noted appears like healing no swelling no warmth Neurological Exam Neurological exam: Present alert, oriented X3 and normal gait Skin Skin exam: Present warm, dry, intact and normal color; Absent rash, cyanosis, diaphoresis, erythema or pallor Medical Decision Making Jim Inquiry Pt receiving controlled substance: No Jim was queried for this patient: No Vital Signs: 11/08/23 16:40 Temperature 98.3 F Temperature Source Oral Pulse Rate [Left Brachial] 85 Respiratory Rate 20 Blood Pressure [Left Arm] 124/85 Blood Pressure Mean [Left Arm] 98 Blood Pressure Source [Left Arm] Automatic Cuff Blood Pressure Position [Left Arm] Sitting 02 Sat by Pulse Oximetry 96 Oxygen Delivery Method Room Air Lab Data Lab results reviewed: Yes I reviewed the patient's lab results. 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
[2023-11-08 17:33] LABS: Apearance,Urine Cloudy (Clear); Color,Urine Dark Yellow (Yellow); Protein,Urine Trace (Negative)
[2023-11-08 17:34] LABS: Bilirubin,Urine 1+ (Negative); Blood, Urine 1+ (Negative); Glucose,Urine (UA) Negative (Negative); Ketones,Urine 15 (Negative); UTC Leukocyte Esterase,Urine Trace (Negative); UTC Nitrate,Urine Negative (Negative); UTC Pregnancy Test, Urine Negative (Negative); Urobilinogen,Urine 0.2 EU/dl (0.2)
[2023-11-08 17:40] VITALS: BP 124/85; PULSE 85; RESP 20; TEMP 36.8; O2SAT 96
== END 2023-11-08 17:46 | disposition home or self-care (01) ==
PROVIDERS: Emergency Provider Nurse Practitioner; PCP Internal Medicine Adolescent Medicine
DX: R11.0 Nausea (principal); R42 Dizziness and giddiness; I10 Essential (primary) hypertension
CPT/HCPCS: 81003; 81025; 99212; 99213; G0463

== ENCOUNTER 2025-05-18 08:52 | Emergency (ER) | payer BC, SELFPAY ==
[2025-05-18 09:06] VITALS: BP 108/69; PULSE 87; RESP 18; TEMP 36.8; O2SAT 99; BMI 40.2
--- NOTE | 2025-05-18 09:07 | HMH.EDGENADL ---
Discharge Plan Disposition Patient Disposition: Home, Self-Care Prescriptions Prescriptions: No Action drospirenone-ethinyl estradiol 3-0.03 mg tablet 1 tab PO DAILY albuterol sulfate 90 mcg/actuation HFA aerosol inhaler 2 puff inhalation Q6H PRN spironolactone 25 mg tablet 50 mg PO BID atomoxetine 40 mg capsule 40 mg PO DAILY Patient Comments: TAKE 1 CAPSULE BY MOUTH ONCE DAILY IN THE MORNING Referrals Follow up/Referrals: Little Pritchard APRN [Primary Care Provider, Medical] - See instructions Critsin Galeana DPM [Staff Physician, Podiatry] - See instructions Activity Restrictions/Add. Instructions Additional Instructions/Restrictions: This is likely a flare of your plantar fasciitis. I encourage you to take Tylenol, ibuprofen as needed every 6 hours to help with your pain. You can wear compression stockings and shoes with high arches to help with your symptoms. I am referring you to Dr. Galeana with the podiatry team. I encourage you to follow-up with them. Clinical Impressions Clinical Impression: Pain of left heel Stand Alone Forms Stand Alone Forms: Work/School Release Print Language Print Language: Thai Discharge ED Provider: Jozef Mcclendon General Adult HPI General Stated complaint: Pain L foot Time Seen by Provider: 05/18/25 08:55 History of Present Illness HPI narrative: Martha Charles is a 29y female with a history of plantar fasciitis, anxiety, depression, ADHD who presents to the emergency department for complaints of pain in her left heel. Patient states that she has been having intermittent episodes of pain in her left heel and has been going up and down stairs a lot at work. She states that today, she woke up and had worsening pain in her left knee and feels like she cannot bear weight on on that leg. She states that it caused her to fall this morning but she did not hit her head or lose consciousness. She has had plantar fasciitis in the past and wears high arch shoes and was previously followed by Dr. Galeana and had injections. She states that the pain is mostly in her left heel on the plantar surface but radiates to the back of the heel as well. She denies any direct trauma to the area. She denies rolling her ankle. Related Data Home Medications ?Medication ?Instructions ?Recorded ?Confirmed drospirenone 3 mg-ethinyl 1 tab PO DAILY 12/09/22 07/20/24 estradiol 0.03 mg tablet spironolactone 25 mg tablet 50 mg PO BID bp 07/21/23 07/20/24 atomoxetine 40 mg capsule 40 mg PO DAILY 11/08/23 07/20/24 albuterol sulfate 90 mcg/actuation 2 puff inhalation Q6H PRN 07/20/24 07/20/24 aerosol inhaler Allergies Allergy/AdvReac Type Severity Reaction Status Date / Time prochlorperazine (From Allergy Unknown Verified 07/20/24 08:09 Compazine) promethazine Allergy Unknown Verified 07/20/24 08:09 [facility] Disclaimer: The information contained in this section may have been updated after the patient was seen, as this information can be updated by other users. Medical History UTI (urinary tract infection) Kidney stones Depression Anxiety Migraine Hypertension Sleep apnea Atypical chest pain Asthma with exacerbation Surgical History S/P dilation and curettage [place] teeth extracted Delivery by section Family History Other Asthma Cancer Diabetes Fibromyalgia Kidney disease Social History Smoking Status: Never smoker second hand exposure: No alcohol intake: never substance use type: denies use current occupational status: employed Travel in the last 8 weeks?: None household members: significant other and children housing: house number of children: 1 current occupational exposures/hazards: No Have you lived/traveled outside [place] in past 30 days?: No Contact w/someone who lives/traveled outside US past 30 days?: No Exposure to someone with infectious disease in past 14 days?: No Do you have a fever (greater than 100.4 F or 38 C)?: No Have you tested positive for COVID-19?: No Exposed to someone with COVID-19 in past 14 days?: No Do you have a sore throat?: No Do you have a cough?: No Do you have any weakness?: No Do you have any diarrhea?: No Are you experiencing any unusual bleeding?: No Do you have any muscle aches/pain?: No Do you have any abdominal pain?: No Are you experiencing loss of taste or smell?: No Other Medical History Have you received the Flu Vaccine for this season: No Have you received the Pneumonia Vaccine: No ROS Obtained: Yes Systems reviewed as appropriate & no additional complaints except as documented Physical Exam General General appearance: alert and in no apparent distress Head Head exam: atraumatic Eye Eye exam: Present normal appearance ENT ENT exam: Present normal external ear exam Neck Neck exam: Present full ROM Chest Chest inspection: Present symmetric chest wall rise Respiratory Respiratory exam: Present normal lung sounds bilaterally; Absent respiratory distress Cardiovascular Cardiovascular exam: Present regular rate and normal rhythm Abdominal Exam Abdominal exam: Absent distention Extremities Exam Extremities exam: Present normal inspection Expanded Lower Extremity Exam Left: Bottom foot image:  1. Tenderness without deformity, erythema, swelling Back Exam Back exam: Present normal inspection Neurological Exam Neurological exam: Present alert and oriented X3 Psychiatric Psychiatric exam: Present normal affect Skin Skin exam: Present warm and dry Medical Decision Making Medical Records Screening: Per USPSTF and CDC recommendations, given the prevalence of disease in our region, it is our hospital?s policy to screen for HIV and viral Hepatitis for all patients aged 18 and over and those with ongoing risk factors. Jim Inquiry Pt receiving controlled substance: No Medical Decision Narrative: Martha Charles is a 29y female with a history of plantar fasciitis, anxiety, depression, ADHD who presents to the emergency department for complaints of pain in her left heel. Patient states that she has been having intermittent episodes of pain in her left heel and has been going up and down stairs a lot at work. She states that today, she woke up and had worsening pain in her left knee and feels like she cannot bear weight on on that leg. She states that it caused her to fall this morning but she did not hit her head or lose consciousness. She has had plantar fasciitis in the past and wears high arch shoes and was previously followed by Dr. Galeana and had injections. She states that the pain is mostly in her left heel on the plantar surface but radiates to the back of the heel as well. She denies any direct trauma to the area. She denies rolling her ankle. On arrival, patient is hemodynamically stable, no acute distress, breathing comfortably on room air. Physical exam, stated above, revealed overall well-appearing female in no distress. She is alert and oriented. She has focal tenderness over the plantar aspect of the left heel at the plantar fascia insertion site. Rudolph test is reassuring without evidence of Achilles injury. No tenderness over the Achilles tendon. No significant tenderness over the posterior aspect of the heel. 5 out of 5 strength with plantar dorsiflexion at the ankle. Sensation grossly intact to the foot. 2+ DP pulses and PT pulses. X-ray was offered to evaluate for hairline fracture, however patient declined at this time. Patient declined analgesics as well. I do feel that her symptomatology is most consistent with plantar fasciitis and would benefit from follow-up with podiatry. Will place referral in for Dr. Galeana. Patient was given a work note. Instructed to take NSAIDs, Tylenol, compression stockings and shoes with high arched soles. All questions were answered. She demonstrated understanding and was in agreement this plan. She was then discharged from the emergency department in stable condition. Critical Care Critical Care Time Critical Care Time: No
[2025-05-18 09:18] VITALS: BP 108/69; PULSE 87; RESP 18; TEMP 36.8; O2SAT 99
== END 2025-05-18 09:23 | disposition home or self-care (01) ==
PROVIDERS: Emergency Provider Student in an Organized Health Care Education/Training Program; PCP Nurse Practitioner
DX: M79.672 Pain in left foot (principal); M25.562 Pain in left knee; Z88.8 Allergy status to other drugs, medicaments and biological substances
CPT/HCPCS: 99283

== ENCOUNTER 2025-05-21 13:06 | Outpatient (CLI) | payer BC, SELFPAY ==
--- NOTE | 2025-05-21 13:09 | XR_ITS ---
PROCEDURE INFORMATION: Exam: XR Left Foot Complete; Alignment Exam date and time: 05/21/2025 1:13 PM Age: 29 years old Clinical indication: Pain; Foot; Left; Additional info: Left heel pain TECHNIQUE: Imaging protocol: Radiologic exam of the left foot. Views: 3 or more views. COMPARISON: CR XR FOOT WT BEARING LT 3V 08/12/2020 12:52 PM FINDINGS: Bones/joints: No acute fracture or dislocation. Soft tissues: Normal. IMPRESSION: No acute fracture or dislocation.
== END 2025-05-21 23:59 ==
LOC: RAD 13:07
PROVIDERS: PCP Nurse Practitioner; Visit Provider Podiatrist
DX: M79.672 Pain in left foot (principal)
CPT/HCPCS: 73630

== ENCOUNTER 2025-06-08 07:24 | Outpatient (CLI) | payer BC, SELFPAY ==
--- OUTSIDE RECORDS SUMMARY | 2023-09-01 08:15 | XMS_ITS | Encounter Summary ---
Author Organization [facility] Address [address] [place] [address] Care Team Providers Care Hat Finisher Name Role Phone Jose Brunner MD Primary Care Provider [phone] Encounter Details Date Type Department Care Team (Late st Contact Info) Description 09/01/2023 9:15 AM EDT Hospital Encounter [facility] [address] [place] [address] Social History Tobacco Use Types Packs/Day Years Used Date Smoking Tobacco: Never Passive Smoke Exposure: Never Smokeless Tobacco: Never Alcohol Use Standard Drinks/Week Comments Yes 0 (1 standard drink = 0.6 oz pur e alcohol) Maybe once a year, if that. AUDIT-C Answer Date Recorded Q1: How often do you have a drink containing alc ohol? Never 07/16/2020 Average Number of Drinks Not on file 021 Frequency of Binge Drinking Not on file 07/2020 Abuse Screen Answer Date Recorded Feels Unsafe at Home or Work/School no 06/11/2023 Feels Threatened by Someone no 05/15 Does Anyone Try to Keep You From Having Contact with Others or Doing Things Outside Your Home? no 06/11/2023 Physical Signs of Abuse Present no 06/11/2023 PHQ-2 Answer Date Recorded Patient Health Questionnaire-9 Score 13 01/30/2025 Comments No Sex and Gender Information Value Date Recorded Sex Assigned at Female 08/16/2024 12:07 PM EST Legal Sex Female 11:21 AM EDT Gender Identity Not on file Sexual Orientation Straight 08/16/2024 12 :07 PM EST documented as of this encounter Plan of Treatment Not on file documented as of this encounter Procedures Procedure Name Priority Date/Time Associated Diagnosis Comments XR CHEST PA AND LATERAL Routine 09/01/2023 9:17 AM EDT Preoperative respiratory examination documented in this encounter Results * XR Chest PA & Lateral (09/01/2023 9:17 AM EDT) Anatomical Region Laterality Modality Body, Chest N/A Radiographic Shea ging 09/01/2023 5:07 PM EDT Impressions 09/01/2023 5:07 PM EDT Impression: No acute chest finding. Electronically Signed: Alana Marshall MD 09/01/2023 5:07 PM EDT Workstation ID: [id number] Narrative 09/01/2023 5:07 PM EDT XR CHEST PA AND LATERAL Date of Exam: 09/01/2023 9:15 AM EDT Indication: PREOP Comparison: PA and lateral chest radiograph 06/11/2023. Findings: There is no acute airspace disease. Benign calcified nodular densities are suggested overlying the right midlung zone. The heart size is within normal limits. Pulmonary vascular distribution is normal. There is no pleural effusion, pneumothorax or acute osseous abnormality. Procedure Note Alana Marshall MD - 09/01/2023 XR CHEST PA AND LATERAL Date of Exam: 09/01/2023 9:15 AM EDT Indication: PREOP Comparison: PA and lateral chest radiograph 06/11/2023. Findings: There is no acute airspace disease. Benign calcified nodular densities aresuggested overlying the right midlung zone. The heart size is withinnormal limits. Pulmonary vascular distribution is normal. There is nopleural effusion, pneumothorax or acute osseous abnormality. IMPRESSION: Impression: No acute chest finding. Electronically Signed: Alana Marshall MD 09/01/2023 5:07 PM EDT Workstation ID: [id number] Yesi Ferguson [employer]W OPERATOR IMG DIAGNOSTIC IMAGING ORDERA BLES Final Result documented in this encounter Visit Diagnoses Not on filedocumented in this encounter Additional Health Concerns Infection Onset Date Last Indicated Resolved Time COVID (rule out) 08/02/2024 08/02/2024 08/02/2024 2:54 PM EST Influenza 08/02/2024 08/02/2024 09/01/2024 9:08 PM EDT documented as of this encounter Care Teams Hat Finisher Relationship Specialty Start Date End Date Jose Brunner MD [facility] [address] [place] [address] PCP - General Adolescent Medicine 12/17/19 03/21/24 documented as of this encounter
--- OUTSIDE RECORDS SUMMARY | 2025-06-08 07:26 | XMS_ITS | Clinical Summary ---
Author Organization [facility] ystem Address [address] [place] [address] Care Team Providers Care [employer] Attendant Name Role Phone Little Pritchard Cma LONG Primary Care Provider Allergies Active Allergy Reactions Criticality Noted Date Comments Prochlorperazine Edisylate Other (See Comments) High 09/02/2018 Acute dystonic reaction. Promethazine Hcl Other (See Comments) High 09/02/2018 Acute dystonic reaction. Medications * This document contains information received from the source organization and may not represent a complete record from that organization. albuterol sulfate HFA 108 (90 Base) MCG/ACT inhalerIndication s:Asthma, unspecified asthma severity, unspecified whether complicated, unspecified whether persistent Inhale 2 puffs Every 4 (Four) Hours As Needed for Wheezing. 18 g 11 09/01/19 24 Active drospirenone-ethi nyl estradiol (CHILANGO,OCELLA) 3-0.03 MG per tablet Take 1 tablet by mouth Daily. 28 tablet 12 07/31/19 25 Active tretinoin (RETIN-A) 0.025 % cream APPLY PEA SIZE AMOUNT TO FACE AT BEDTIME 2 TO 3 NIGHTS A WEEK INCREASE TO DAILY OF TOLERATING. FOLLOW WITH MOISTURIZER 09/01/19 25 Active spironolactone (ALDACTONE) 50 MG tablet Take 1 tablet by mouth twice daily 90 tablet 12/26/19 25 Active lamoTRIgine (LaMICtal) 100 MG tabletIndications :Mood disorder Take 1 tablet by mouth Daily. 90 tablet 1 01/17/20 25 Active traZODone (DESYREL) 50 MG tabletIndications :Primary insomnia Take 1 tablet by mouth At Night As Needed for Sleep. 90 tablet 1 02/14/20 25 Active Additional Information Patient not taking.Reported on 05/31/2025 montelukast (Singulair) 10 MG tablet Take 1 tablet by mouth Every Night. 90 tablet 2 03/21/20 25 Active Fluticasone Furoate-Vilantero l 50-25 MCG/ACT aerosol powder Inhale 50 mg Daily. 60 each 05/03/20 25 Active amphetamine-dextr oamphetamine XR (ADDERALL XR) 15 MG 24 hr capsuleIndication s:ADHD (attention deficit hyperactivity disorder), combined type Take 1 capsule by mouth Every Morning 30 capsule 05/31/20 25 Active lisdexamfetamine (VYVANSE) 30 MG capsuleIndication s:Attention deficit hyperactivity disorder (ADHD), predominantly hyperactive type Take 1 capsule by mouth Every Morning 30 capsule 04/24/20 25 025 Discontinu ed(Histori garry Med - Therapy completed) amphetamine-dextr oamphetamine XR (ADDERALL XR) 10 MG 24 hr capsuleIndication s:ADHD (attention deficit hyperactivity disorder), combined type Take 1 capsule by mouth Every Morning 15 capsule 05/17/20 25 025 Discontinu ed(Histori garry Med - Therapy completed) Active Problems Problem Noted Date Diagnosed Date Primary insomnia 01/16/2025 Mood disorder 11/14/2024 Generalized anxiety disorder 11/14/2024 Right upper quadrant abdominal pain 11/02/2024 Assessment & Plan (11/02/2024 12:04 PM EDT): Patient states pain started about six days ago. Began as sharp pain under her right breast with inspiration, became worse after eating. While it has persisted, she doesn't seem to notice it until after lunch for the last couple of days. Last night began to have sharp pains behind her right shoulder blade. She does endorse mild nausea, increased gas pain, some bloating and decreased appetite. On physical exam today patient is noted to have positive Lorenzo sign. Will refer for gallbladder ultrasound. Patient should avoid spicy and greasy as well as high-fat foods. Anxiety and depression 11/02/2024 Assessment & Plan (11/02/2024 12:03 PM EDT): Patient endorses first having feelings of anxiety depression at the age of 6. At that point in her life her dad had an affair on her mom, subsequently ending in divorce at which time her mother move them 5 hours away from everyone they knew. Patient states after that event her mother pretty much left her to raise her siblings. Patient also states her mood issues stem from her ex- who left her while she was 11 weeks at which point she had to sleep on her mother's couch. Patient is currently followed by therapist. She has utilized multiple mood stabilizing medications in the past when under the care of a psychiatrist, but has not been medicated since 2018. Patient states at 1 point she was on 7 different medications that made her gain a lot of weight. Patient endorses mental health issues in the family, her grandfather in particular who suffered from schizophrenia. Patient would like to begin to pursue medication management once again. She wishes to keep her current therapist. Refer to Rudy Isbell APRN History of nephrolithiasis 10/04/2024 Assessment & Plan (10/04/2024 4:20 PM EDT): Patient with several weeks of right flank pain and urinary type symptoms, given she does have a history of nephrolithiasis will send for KUB for further evaluation and rule out. Contact patient with results when available. Likely will need urologic referral. Acute cystitis with hematuria 10/04/2024 Assessment & Plan (11/02/2024 12:10 PM EDT): Patient initially presented to our office August 16 with complaints of painful urination. At that time she had just completed round of Bromfed with upper respiratory infection. Patient states during previous use of Bromfed she did develop post course of treatment urinary tract infection. On that particular day patient's urinalysis was positive for nitrates, leukocytes and blood prompting treatment with 5-day course of Macrobid. Patient reported that despite completion of that antibiotic regimen her symptoms persisted. At that time patient submitted urine for culture which ultimately tested positive for E. coli. She was then treated with 3-day course of ciprofloxacin, that treated initiated on August 30. Most recently on September 13 patient returned our office, evaluated by colleague Dr. Vega with recurrent UTI symptoms. Reported Dr. Vega that the round of Cipro did ease back her urinary symptoms but they never seem to fully quite resolved. Dr. Vega patient submitted culture that again came back as E. coli, patient treated appropriately with 10- day course of Bactrim. Patient then returned on October 04 stating that her symptoms have continued, now with additional complaint of right flank pain. She was sent for KUB without signs of hydronephrosis or nephrolithiasis. Urine was sent for culture yet again and once again identified is E. coli. Has completed second course of Bactrim, continues to have flank pain, feeling as though her bladder is not completely emptying. She denies any fever, chills. - Refer to urology for further evaluation Assessment & Plan (10/04/2024 4:20 PM EDT): Patient initially presented to our office August 16 with complaints of painful urination. At that time she had just completed round of Bromfed with upper respiratory infection. Patient states during previous use of Bromfed she did develop post course of treatment urinary tract infection. On that particular day patient's urinalysis was positive for nitrates, leukocytes and blood prompting treatment with 5-day course of Macrobid. Patient reported that despite completion of that antibiotic regimen her symptoms persisted. At that time patient submitted urine for culture which ultimately tested positive for E. coli. She was then treated with 3-day course of ciprofloxacin, that treated initiated on August 30. Most recently on September 13 patient returned our office, evaluated by colleague Dr. Vega with recurrent UTI symptoms. Reported Dr. Vega that the round of Cipro did ease back her urinary symptoms but they never seem to fully quite resolved. Dr. Vega patient submitted culture that again came back as E. coli, patient treated appropriately with 10- day course of Bactrim. Patient is back today saying that her symptoms have continued, now with some right flank pain as well. He does have some right CVA tenderness on palpation. We are sending her urine for culture for confirmation. Prediabetes 10/04/2024 Assessment & Plan (10/04/2024 4:19 PM EDT): Patient has lost almost 50 pounds, A1c in office today reflective of improvement, 5.3% Intertrigo 09/13/2024 Assessment & Plan (09/13/2024 1:28 PM EDT): Historical pattern intermittently by her report, flaring under the breast tissue more recently. Putting a pink slightly inflamed rash in that region as is typical. Initiate nystatin powder 3 times daily for 7 to 10 days. Keep the area clean and dry. Advise if not improving. Acute right-sided low back pain without sciatica 09/13/2024 Assessment & Plan (09/13/2024 1:29 PM EDT): Mild pattern of pain in the right lower back, thought to be initially more related to her urinary symptoms but this is more musculoskeletal in nature with palpable discomfort which is modest, but easing back over the last week. Reassuring examination with no cervical, thoracic or spinous process tenderness. No radiculopathy or neurologic concern recommend heating pad, light stretching, anti-inflammatory as needed. This should continue to improve. Acute cystitis without hematuria 08/16/2024 Assessment & Plan (09/13/2024 1:28 PM EDT): Patient has some persisting urinary symptoms over the last month or so, having been seen initially 08/18/2024 and treated with Macrobid but persisting symptoms resulted in urine culture being 08/25/2024 which was growth of E. coli which was essentially pansensitive and placed on 3 days of Cipro 500 mg twice daily. Unfortunately that did not ease her symptoms back to never fully resolved the sense of a bit of urinary discomfort, a bit of increased frequency, and that has increased over the last handful of days. Urinalysis repeated again showing some hazy appearance and moderate leukocyte esterase. As such I will go ahead and send another urine culture to help guide further therapy, but initiate Bactrim DS twice daily a longer course of 10 days duration. Push fluids, recommend adding additional probiotic. Avoid carbonated beverages which she is not having increased intake. Due to this recurrent pattern I would like her to follow-up in the next couple weeks to reassess how she is doing, if persisting pattern she might benefit from urologic referral. Assessment & Plan (08/18/2024 11:36 AM EST): Patient's urinalysis in office today with trace blood, positive leukocytes and positive nitrates. Will treat with Macrobid as directed. Patient encouraged to increase water consumption, also discussed benefits of cranberry juice or Cranberry pills. Discussed other hygienic measures including wiping front to back. From now on we will try to avoid Bromfed Influenza B 08/02/2024 Assessment & Plan (08/03/2024 8:10 AM EST): Patient testing positive for influenza B in office today. We advised symptom management with viral illness, being given prescription for Bromfed to address cough and congestion. Patient advised to get plenty of rest and fluids. In the past she does have common asthmatic flares with viral triggers, subsequently will give round of prednisone given early complaints of chest tightness. Is advised to utilize [id number]-[id number] lozenges and sprays for sore throat, may utilize ibuprofen or Tylenol for myalgias and headache. Patient given work note for the next 2 days. Vies if no improvement ADHD (attention deficit hype ractivity disorder), combined type 03/22/2024 Assessment & Plan (11/02/2024 12:02 PM EDT): Patient has longstanding diagnosis of ADHD which triggered a lot of anxiety in the past. Patient states even presently if she misses a day of her Strattera she will have panic attacks. Her previous PCP wanted to avoid stimulants in the beginning prompting use of Strattera. Assessment & Plan (07/31/2024 12:57 PM EST): Patient has longstanding diagnosis of ADHD which triggered a lot of anxiety in the past. Patient states even presently if she misses a day of her Strattera she will have panic attacks. Her previous PCP wanted to avoid stimulants in the beginning prompting use of Strattera. Assessment & Plan (03/22/2024 6:01 PM EDT): Longstanding diagnosis, she states that her untreated ADHD triggered a lot of anxiety in the past. Currently finds excellent benefit from daily Strattera. She states that her previous PCP wanted to avoid stimulants in the beginning prompting use of Strattera. Physical exam, annual 03/22/2024 Mass of upper inner quadrant of left breast 02/2024 Assessment & Plan (03/22/2024 6:04 PM EDT): Patient states she first noticed the abnormality approximately 3 weeks ago. This is been accompanied by some mild tenderness with palpation. She also states over the last couple of days she has developed a dull deep pain in her left breast, feeling like a bruise on the inside. She states the pain comes and goes. She also notes that she has developed a small patch of red dry skin but feels it is related to her eczema. Denies any abnormal nipple discharge, change in color or shape. No erythema or swelling of the breast. No family history of breast cancer. On physical exam lump feels more like a lipoma than a concerning mass, however we will pursue mammogram to err on the side of caution. Encounter to establish care 03/22/2024 Asthma 09/01/2023 Assessment & Plan (03/22/2024 5:58 PM EDT): Patient has longstanding diagnosis of persistent asthma. She is followed regularly by pulmonary at [facility]. She currently utilizes regimen of twice daily Advair. Patient also keeps albuterol inhaler needed for emergencies. She does endorse flare triggers of common illness and changes of season. Immunization due 09/01/2023 SONIA (obstructive sleep apnea) 07/07/2023 Assessment & Plan (07/31/2024 12:56 PM EST): Patient continues to endorse nightly PAP use Assessment & Plan (03/22/2024 6:00 PM EDT): Patient endorses excellent compliance with nightly CPAP use HTN (hypertension) 07/07/2023 Assessment & Plan (11/02/2024 12:05 PM EDT): 6 weeks ago patient had spironolactone decreased to 50 mg twice daily when being seen by colleague, Dr. Osmani Vega. Her blood pressure has done very well without adjustment staying well within control, 112/64 in office today Assessment & Plan (09/13/2024 1:30 PM EDT): Blood pressure initially 126/78, but repeating after sitting for 5 minutes at 116/76. Still technically in good range but there seems to be a bit of a positional dizzy sensation that can occur and is seems to coincide with her 20 to 30 pound weight loss since fall. As such, would like to do a trial of decreasing her spironolactone to 50 mg twice daily down to half tablet twice daily over the next couple weeks and reassess how she is feeling when she follows up with Little Pritchard, in addition to seeing what her blood pressure looks like without adjustment. Assessment & Plan (07/31/2024 12:57 PM EST): Blood pressure very well-controlled on spironolactone 50 mg twice daily. Blood pressure in office today is 122/80 Assessment & Plan (03/22/2024 5:57 PM EDT): Patient's blood pressure in office today is excellent, 124/72. She currently utilizes spironolactone 50 mg twice daily. Obesity, Class III, BMI 40-49.9 (morbid obesity) 07/07/2023 Assessment & Plan (07/31/2024 12:57 PM EST): Patient's (Body mass index is 39.14 kg/m .) indicates that they are obese (BMI >30) with health conditions that include obstructive sleep apnea and hypertension . Weight is improving with lifestyle modifications. BMI is above average; BMI management plan is completed. We discussed portion control and increasing exercise. Patient notes eating a predominantly protein based diet as well as walking for 1 hour on the treadmill daily. Patient states she was working and had completed her entire workup for bariatric surgery, however with changing jobs and change in insurance she lost approval for financial coverage. Patient states she is lost approximately 20 pounds since June with lifestyle modifications as outlined above. Assessment & Plan (03/22/2024 5:59 PM EDT): Patient's (Body mass index is 38.67 kg/m .) indicates that they are obese (BMI >30) with health conditions that include obstructive sleep apnea and hypertension . Weight is improving with lifestyle modifications. BMI is above average; BMI management plan is completed. We discussed portion control and increasing exercise. Patient notes eating a predominantly protein based diet as well as walking for 1 hour on the treadmill daily. Patient states she was working and had completed her entire workup for bariatric surgery, however with changing jobs and change in insurance she lost approval for financial coverage. Patient states she is lost approximately 20 pounds since June with lifestyle modifications as outlined above. 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 Date Type Department Care Team Description 05/31/2025 Travel 05/17/2025 Travel 05/02/2025 Telephone [facility] [address] [place] [address] [place] [phone] Little Pritchard APRN 04/24/2025 Travel 04/20/2025 Refill [facility] [place] [phone] Little Pritchard APRN 03/21/2025 11:15 AM EDT Office Visit [facility] [place] [id number] Little Pritchard, SERVICE LOSS CONTROL CONSULTANT Dysuria (Primary Dx); Acute cystitis with hematuria; Moderate persistent asthma without complication; Encounter for immunization 03/21/2025 Travel from Last 3 Months Immunizations Immunization Administration Dates Next Due FluMist 2-49yrs 03/08/2014 Flublok 18+yrs 05/16/2019 Fluzone >6mos 03/21/2025,03/31/2018 Fluzone (or Fluarix & Flulav al for VFC) >6mos 09/01/2023,03/31/2018 HPV Quadrivalent 03/08/2014 Hep A, 2 Dose 04/06/2018 Meningococcal Conjugate 03/08/2014 Tdap 09/22/2023,11/16/2021,11/03/2006 Family History Medical History Relation Name Comments No Known Problems Brother 1 defects Brother 2 Ernesto Charles Ear Bleeding Disorder Brother 2 Ernesto Charles Runx-1 Arthritis Father Angel Charles Jr Hearing loss Father Angel Charles Jr Hypertension Father Angel Charles Jr Arthritis Maternal Aunt Carmen Khan Bleeding Disorder Maternal Aunt Carmen Khan Runx-1 Depression Maternal Aunt Carmen Khan Mental illness Maternal Aunt Carmen Khan Thyroid disease Maternal Aunt Carmen Khan Cancer Maternal Grandfather Abdirashid Tuttle Testicu lar Colon cancer Maternal Grandfather Abdirashid Tuttle Depression Maternal Grandfather Abdirashid Tuttle Hearing loss Maternal Grandfather Abdirashid Tuttle Mental illness Maternal Grandfather Abdirashid Tuttle Schizophrenia Maternal Grandfather Abdirashid Tuttle Arthritis Maternal Grandmother Susie Tuttle Asthma Maternal Grandmother Susie Tuttle Bleeding Disorder Maternal Grandmother Susie Tuttle R UNX-1 COPD Maternal Grandmother Susie Tuttle Cancer Maternal Grandmother Susie Tuttle Diabetes Maternal Grandmother Susie Tuttle Heart disease Maternal Grandmother Susie Tuttle Hypertension Maternal Grandmother Susie Tuttle Kidney failure Maternal Grandmother Susie Tuttle Miscarriages / Stillbirths Maternal Grandmother Susie Tuttle Obesity Maternal Grandmother Susie Tuttle Sleep apnea Maternal Grandmother Susie Tuttle Arthritis Mother Vani Cristina Asthma Mother Vani Cristina Bleeding Disorder Mother Vanimercy Evans Runx-1 COPD Mother Vani Cristina Cancer Mother Vani Cristina Depression Mother Vani Cristina Diabetes Mother Vani Cristina Hearing loss Mother Vani Cristina Heart disease Mother Vani Cristina Heart failure Mother Vani Cristina Hypertension Mother Vani Cristina Kidney disease Mother Vani Cristina Mental illness Mother Vani Cristina Miscarriages / Stillbirths Mother Vani Cristina Sleep apnea Mother Vani Evans Stroke Mother Vani Evans Cancer Paternal Grandfather Angel Charles Hearing loss Paternal Grandfather Angel Charles Heart attack Paternal Grandfather Angel Charles Hypertension Paternal Grandfather Angel Charles Obesity Paternal Grandfather Angel Charles Stroke Paternal Grandfather Angel Charles Cancer Paternal Grandmother Leny Melvin Ovarian ? Early Paternal Grandmother Leny Charles Cancer at 43 Heart disease Paternal Grandmother Leny Melvin Obesity Paternal Grandmother Leny Melvin Sleep apnea Paternal Grandmother Leny Charles No Known Problems Sister 1 Anxiety disorder Sister 2 Ashtyn Gimenez Bleeding Disorder Sister 2 Ashtyn Gimenez RUNX-1 Depression Sister 2 Ashtyn Gimenez Mental illness Sister 2 Ashtyn Wootenlins Asthma Son Jas Jerez Mental illness Son Jas Jerez Breast cancer Neg Hx Endometrial cancer Neg Hx Ovarian cancer Neg Hx Uterine cancer Neg Hx Relation Name Status Comments Brother 1 Alive Brother 2 Ernesto Charles Father Angel Charles Jr Alive Maternal Aunt Carmen Khan Maternal Grandfather Abdirashid Tuttle Alive Maternal Grandmother Susie Tuttle Mother Vani Evans Alive Paternal Grandfather Angel Charles Alive Paternal Grandmother Leny Charles Sister 1 Alive Sister 2 Ashtyn Gimenez Son Jas Jerez Social History Tobacco Use Types Packs/Day Years Used Date Smoking Tobacco: Never Passive Smoke Exposure: Never Smokeless Tobacco: Never Tobacco Cessation:Counseling Given: Not Answered Alcohol Use Standard Drinks/Week Comments Yes 0 [...] Orientation Straight 08/16/2024 12 :07 PM EST Last Filed Vital Signs Vital Sign Reading Time Taken Comments Blood Pressure 106/78 03/21/2025 11:21 AM EDT Pulse 88 03/21/2025 11:21 AM EDT Temperature 36.7 C (98.1 F) 03/21/2025 11:21 AM EDT Respiratory Rate 16 03/21/2025 11:21 AM EDT Oxygen Saturation 98% 03/21/2025 11:21 AM EDT Inhaled Oxygen Concentration - - Weight 99.8 kg (220 lb) 03/21/2025 11:21 AM EDT Height 157.5 cm (5' 2 ) 03/21/2025 11:21 AM EDT Body Mass Index 40.24 03/21/2025 11:21 AM EDT Plan of Treatment Health Maintenance Due Date Last Done Comments Pneumococcal Vaccine 0-49 (1 of 2 - PCV) 08/11/2014 Annual Gynecologic Pelvic an d Breast Exam 07/17/2021 07/16/2020 PAP SMEAR 07/16/2023 07/16/2020 ANNUAL PHYSICAL 03/22/2025 03/22/2024 TDAP/TD VACCINES (4 - Td or Tdap) 09/21/2033 09/22/2023, 11/16/2021, 11/03/2006 HEPATITIS C SCREENING Completed 07/16/2020 INFLUENZA VACCINE Completed 03/21/2025, , 05/16/2019, Additional history exists Procedures Procedure Name Priority Date/Time Associated Diagnosis Comments URINE DRUG SCREEN Routine 04/24/2025 9:2 1 AM EST Generalized anxiety disorder Attention deficit hyperactivity disorder (ADHD), predominantly hyperactive type POCT URINALYSIS DIPSTICK, MANUAL Routine 03/21/2025 1:49 PM EDT Dysuria HEPATITIS C ANTIBODY Routine 07/16/2020 2:10 PM EST Unprotected sexual intercourse LIQUID-BASED PAP SMEAR, SCREENING Routine 07/16/2020 Encntr for line assembler aircraft exam (general) (routine) w/o abn findings from Last 3 Months or Most Recently Relevant to Health Maintenance Results * Urine Drug Screen - Urine, Clean Catch (04/24/2025 9:21 AM EST) Pathologist [facility] [place] Amphetamine, Urine Qual Negative Cutoff=10 00 ng/mL [facility] Barbiturates Screen, Urine Negative Cutoff=20 0 ng/mL [facility] Benzodiazepine Screen, Urine Negative Cutoff=20 0 ng/mL [facility] THC Screen, Urine Negative Cutoff=20 ng/mL [facility] Cocaine Screen, Urine Negative Cutoff=30 0 ng/mL [facility] Opiate Screen, Urine Negative Cutoff=30 0 ng/mL [facility] Comment:Opiate test includes Codeine, Morphine, Hydromorphone, Hydrocodone. Oxycodone/Oxymorph one, Urine Negative Cutoff=10 0 ng/mL [facility] Comment:Test includes Oxycod one and Oxymorphone Phencyclidine (PCP), Urine Negative Cutoff=25 ng/mL [facility] Methadone Screen, Urine Negative Cutoff=30 0 ng/mL [facility] Propoxyphene Screen Negative Cutoff=30 0 ng/mL [facility] Creatinine, Urine 96.3 20.0 - 300.0 mg/dL [facility] pH, UA 6.3 4.5 - 8.9 [facility] Please note Comment [facility] Comment: This assay provides a preliminary unconfirmed analytical test result that may be suitable for clinical management of patients in certain situations. Drug-test results should be interpreted in the context of clinical information. Patient metabolic variables, specific drug chemistry, and specimen characteristics can affect test outcome. Technical consultation is available if a test result is inconsistent with an expected outcome. Email: Urine Urine specimen obtained by clean catch procedure / Unknown 04/24/2025 9:21 AM EST 04/24/2025 Comment:Urine Release to [facility] (AMBULATORY) - 04/25/2025 9:06 PM EST Performed at: 01 - [facility] [address] [facility], [place], [place] [id number] Protective Signal Repairer Helper: Michelle Dunham PhD, Phone: [phone] Rudy Isbell SERVICE LOSS CONTROL CONSULTANT URINE ORDERABLES Final Result [facility] (AMBULATORY) [address] [place] [address], [place] [phone] [facility] [address] [place] [address], [place] [phone] * (ABNORMAL) POC Urinalysis Dipstick (03/21/2025 1:49 PM EDT) Pathologist [facility] [place] Color Romy Yellow, Straw, Dark Yellow, Romy [facility] Clarity, UA Cloudy(A) Clear [facility] Glucose, UA Negative Negative mg/dL [facility] Bilirubin Negative Negative [facility] Ketones, UA Negative Negative [facility] Specific [place] 1.015 1.005 - 1.030 [facility] Blood, UA Negative Negative [facility] pH, Urine 6.0 5.0 - 8.0 [facility] Protein, POC Negative Negative mg/dL [facility] Urobilinogen, UA 0.2 E.U./dL Normal, 0.2 E.U./dL [facility] Leukocytes Moderate (2+)(A) Negative [facility] Nitrite, UA Positive(A) Negative [facility] Urine 03/21/2025 1:49 PM EDT Little Pritchard SERVICE LOSS CONTROL CONSULTANT POINT OF CARE TEST ORDERABL ES Final Result [facility]
[address] [place] [address], * Hepatitis C Antibody (07/16/2020 2:10 PM EST) Pathologist [facility] [place] Hepatitis C Ab Non-Reacti ve Non-Reacti ve 07/16/2020 7:59 PM EST LABORATORY Blood Venipuncture / Unknown 07/16/2020 2:10 PM EST 07/16/2020 2:10 PM EST Narrative LABORATORY - 07/16/2020 7:59 PM EST Results may be falsely decreased if patient taking Biotin. Minervagayla Tranbrianne Alamo DO LAB BLOOD ORDERABLES Final Result LABORATORY
[address] [place] [address], * Liquid-based Pap Smear, Screening (07/16/2020) ThinPrep Vial Specimen from cervix or vagina / Unknown Minerva Alamo DO PATHOLOGY/CYTOLOGY ORDERAB LES Final Result Performing Organization Address City/[facility]/ZIP Co de Phone Number [facility]
[address] [place] [address], from Last 3 Months or Most Recently Relevant to Health Maintenance Insurance [facility] PPO Care Teams Childrens Club Attendant Relationship Specialty Start Date End Date Little Pritchard APRN [address] [place] [address] [place] [address] PCP - General Family Medicine 03/22/24
--- OUTSIDE RECORDS SUMMARY | 2025-06-08 07:26 | XMS_ITS | Clinical Summary ---
Author Organization [employer] [facility] Address [address] [place] [address] Care Team Providers Care Respite Coordinator Name Role Phone Unavailable Primary Care Provider Unavailabl e Allergies Active Allergy Reactions Criticality Noted Date Comments Prochlorperazine Edisylate 1 Promethazine 08/06/2020 Medications benzonatate (TESSALON) 100 MG capsule 08/03/2020 Active albuterol (VENTOLIN HFA) 90 mcg/actuation inhaler Inhale 2 puffs every 6 (six) hours as needed for wheezing. Active buPROPion (WELLBUTRIN XL) 300 MG 24 hr tablet 07/09/2020 Active busPIRone (BUSPAR) 5 MG tablet TAKE 1 TABLET BY MOUTH THREE TIMES DAILY 05/15/2020 Active melatonin 1 mg tab Take 12 mg by mouth. Active escitalopram oxalate (LEXAPRO) 20 MG tablet TAKE 1 TABLET BY MOUTH ONCE DAILY 06/09/2020 Active Social History Tobacco Use Types Packs/Day Years Used Date Smoking Tobacco: Never Assessed Comments Unknown Sex and Gender Information Value Date Recorded Sex Assigned at Not on file Legal Sex Female 8:38 AM EST Gender Identity Not on file Sexual Orientation Not on file Last Filed Vital Signs Vital Sign Reading Time Taken Comments Blood Pressure - - Pulse 114 08/06/2020 10:25 AM EST alwys runs high Temperature 36.6 C (97.9 F) 08/06/2020 10:25 AM EST Respiratory Rate - - Oxygen Saturation 97% 08/06/2020 10: 25 AM EST Inhaled Oxygen Concentration - - Weight - - Height - - Body Mass Index - - Plan of Treatment Not on file Medical Devices Not on file
--- OUTSIDE RECORDS SUMMARY | 2025-06-08 07:26 | XMS_ITS | Patient Health Record ---
Author Organization [facility] Address [address] [facility] [address] [place] [address] Care Team Providers Care Orthopedic Nurse Name Role Phone Sera Lorenz Unavailable [phone] Reason For Referral No Information Social History Social History Sexual History: Social Info Question Answer Notes Sexual History Had sex in the past 12 months (vaginal, oral, or anal)? Yes Drugs/Alcohol: Social Info Question Answer Notes Drugs Have you used drugs other than those for medical reasons in the past 12 months? No Alcohol Screen Did you have a drink containing alcohol in the past year? Yes Points 0 Interpretation Negative Tobacco Use: Social Info Question Answer Notes Tobacco Use/Smoking Are you a former smoker Tobacco use other than smoking: Are you an other tobac co user? No Plan Of Treatment No Information
--- OUTSIDE RECORDS SUMMARY | 2025-06-08 07:27 | XMS_ITS | Encounter Summary ---
[facility] Address [address] [place] [address] Care Team Providers Care Wind Farm Electrical Systems Designer Name Role Phone Little Pritchard Cam LONG Primary Care Provider Encounter Details Date Type Department Care Team (Latest Contact Info) Description 05/17/2025 Travel Social History Tobacco Use Types Packs/Day Years [...] on file documented as of this encounter Visit Diagnoses Not on filedocumented in this encounter Care Teams Wind Farm Electrical Systems Designer Relationship Specialty Start Date End Date Little Pritchard, PREPARATION PLANT SUPERVISOR [address] [place] [address] PCP - General Family Medicine 03/22/24 documented as of this encounter
--- OUTSIDE RECORDS SUMMARY | 2025-06-08 07:27 | XMS_ITS | Referral Summary ---
Author Organization [employer] ([place], [place], [place], [place], [place]) Address [address] [place] [address] Care Team Providers Care Bar Machine Operator Production Name Role Phone Jose Brunner MD Primary Care Provider [phone] Allergies Active Allergy Reactions Criticality Noted Date Comments Prochlorperazine 09/27/2022 Promethazine 09/27/2022 Medications No known medications Social History Tobacco Use Types Packs/Day Years Used Date Smoking Tobacco: Never Assessed Food Insecurity Answer Date Recorded Food run out past 12 months Not on file 06/15 Food did not last past 12 months Not on file 07/03/2023 Employment Answer Date Recorded Help finding and keeping a job Not on file 0 07/03/2023 Family and Community Support Answer Dany e Recorded Help with Day to Day Activities Not on file 07/03/2023 Feeling Lonely or Isolated Not on file 07/03 Educational Attainment Answer Date Jason rded Speak language other than Israeli at home Not on file 07/03/2023 Want help with school or training Not on file 07/03/2023 Substance Use Answer Date Recorded Used prescription meds for non-medical reasons N ot on file 07/03/2023 Used illegal drugs past 12 months Not on file 07/03/2023 Comments Unknown Sex and Gender Information Value Date Recorded Sex Assigned at Not on file Legal Sex Female 11:06 AM CDT Gender Identity Not on file Sexual Orientation Not on file Last Filed Vital Signs Vital Sign Reading Time Taken Comments Blood Pressure 123/70 09/27/2022 3:55 PM EDT Pulse 100 09/27/2022 3:55 PM EDT Temperature 36.8 C (98.2 F) 09/27/2022 12:13 PM EDT Respiratory Rate 18 09/27/2022 3:55 PM EDT Oxygen Saturation 96% 09/27/2022 3:55 PM EDT Inhaled Oxygen Concentration - - Weight 99.8 kg (220 lb) 09/27/2022 12:13 PM EDT Height 154.9 cm (5' 1 ) 09/27/2022 12:13 PM EDT Body Mass Index 41.57 09/27/2022 12:13 PM EDT Plan of Treatment Not on file Insurance [facility] Care Teams Bar Machine Operator Production Relationship Specialty Start Date End Date Jose Brunner MD [address] [place] [address] PCP - General Adolescent Medicine 09/27/22
--- OUTSIDE RECORDS SUMMARY | 2025-06-08 07:27 | XMS_ITS | Encounter Summary ---
[facility] Address [address] [place] [address] Care Team Providers Care Lawn Maintenance Worker Name Role Phone Little Pritchard Cam LONG Primary Care Provider Encounter Details Date Type Department Care Team (Latest Contact Info) Description 04/24/2025 Travel Social History Tobacco Use Types Packs/Day [...] on filedocumented in this encounter Care Teams Lawn Maintenance Worker Relationship Specialty Start Date End Date Little Pritcahrd, SUPERINTENDENT OF SCHOOLS [address] [place] [address] PCP - General Family Medicine 03/22/24 documented as of this encounter
--- OUTSIDE RECORDS SUMMARY | 2025-06-08 07:27 | XMS_ITS | Clinical Summary ---
Author Organization [facility] Address [address] [place] [address] Care Team Providers Care Waste Management Engineer Name Role Phone Jonah Harris MD Primary Care Provider [phone] Source Comments [facility] is fully rolled out with thefollowing exceptions:[facility] Social History Tobacco Use Types Packs/Day Years Used Date Smoking Tobacco: Never Assessed Comments Unknown Sex and Gender Information Value Date Recorded Sex Assigned at Not on file Legal Sex Female 5:27 AM EST Gender Identity Not on file Sexual Orientation Not on file Plan of Treatment Health Maintenance Due Date Last Done Comments MMR IMMUNIZATION (1 of 1 - S tandard series) 08/11/1996 DTAP/Tdap/Td IMMUNIZATION (1 - Tdap) 08/11/2002 Yearly Physical Ages 3-18+ 08/11/2006 VARICELLA IMMUNIZATION (1 of 2 - 13+ 2-dose series) 08/11/2008 HEPATITIS B IMMUNIZATION (1 of 3 - 19+ 3-dose series) 08/11/2014 AMB SEASONAL FLU VACCINE (#1) 02/12/2025 COVID-19 Vaccine ( - 2024-2 6 season) 2025 HIB IMMUNIZATION Aged Out No longer e ligible based on patient's age to complete this topic HPV IMMUNIZATION (No Doses Required) Completed IPV IMMUNIZATION Aged Out No longer e ligible based on patient's age to complete this topic MCV4 IMMUNIZATION Aged Out No longer eligible based on patient's age to complete this topic MENINGOCOCCAL B VACCINE Aged Out No l onger eligible based on patient's age to complete this topic PNEUMOCOCCAL IMMUNIZATION Aged Out No longer eligible based on patient's age to complete this topic Respiratory Syncytial Virus (RSV) <20mo Aged Out No longer eligible b ased on patient's age to complete this topic Care Teams Waste Management Engineer Relationship Specialty Start Date End Date Jonah Harris MD [facility] [place] [place] [address] PCP - General 05/02/07
--- OUTSIDE RECORDS SUMMARY | 2025-06-08 07:27 | XMS_ITS | Encounter Summary ---
[facility] Address [address] [place] [address] Care Team Providers Care Belt Changer Name Role Phone Little Pritchard APRN Primary Care Provider [phone] Reason for Visit * Reason Comments Med Refill Encounter Details Date Type Department Care Team (Late st Contact Info) Description 04/20/2025 Refill [facility] [address] [place] [phone] Little Pritchard APRN [address] [place] [address] Social History Tobacco Use Types Packs/Day Years [...] PM EST documented as of this encounter Miscellaneous Notes * Telephone Encounter - Farzaneh Agee MA - 04/20/2025 7:21 AM EST Rx sent documented in this encounter Plan of Treatment Not on file documented as of this encounter Visit Diagnoses Not on filedocumented in this encounter Care Teams Belt Changer Relationship Specialty Start Date End Date Little Pritchard APRN [address] [place] [address] PCP - General Family Medicine 03/22/24 documented as of this encounter
--- OUTSIDE RECORDS SUMMARY | 2025-06-08 07:27 | XMS_ITS | Encounter Summary ---
[facility] [address] [place] [address] Care Team Providers Care Automotive Painter Name Role Phone Little Pritchard APRN Primary Care Provider [phone] Encounter Details Date Type Department Care Team (Late st Contact Info) Description 05/02/2025 Telephone [facility] [address] [place] [phone] Little Pritchard APRN [address] [place] [address] Social History Tobacco Use Types [...] PM EST documented as of this encounter Progress Notes * Estela Agee MA - 05/03/2025 12:57 PM ESTAddended by: ESTELA AEGE on: 05/03/2025 12:57 PM Modules accepted: Orders documented in this encounter Miscellaneous Notes * Telephone Encounter - Estela Agee MA - 05/03/2025 12:48 PM EST Your medication has been denied by your insurance company. Per insurance company you need to try BREO and Advair before they will cover. Patient notified Per Little cunningham to send rx. PATIENT HAS TRIED ADVAIR * Telephone Encounter - Estela Agee MA - 05/02/2025 3:23 PM EST Rx sent PA started patient notified documented in this encounter Plan of Treatment Not on file documented as of this encounter Visit Diagnoses Not on filedocumented in this encounter Care Teams Automotive Painter Relationship Specialty Start Date End Date Little Pritchard APRN [address] [place] [address] PCP - General Family Medicine 03/22/24 documented as of this encounter
--- OUTSIDE RECORDS SUMMARY | 2025-06-08 07:27 | XMS_ITS | Encounter Summary ---
[facility] Address [address] [place] [address] Care Team Providers Care Manager Of Compensation Name Role Phone Little Pritchard Cam LONG Primary Care Provider [phone] Encounter Details Date Type Department Care Team (Latest Contact Info) Description 05/31/2025 Travel Social History Tobacco Use Types Packs/Day [...] on filedocumented in this encounter Care Teams Manager Of Compensation Relationship Specialty Start Date End Date Little Pritchard, RESORT KEEPER [address] [place] [address] PCP - General Family Medicine 03/22/24 documented as of this encounter
--- OUTSIDE RECORDS SUMMARY | 2025-06-08 07:27 | XMS_ITS | Clinical Summary ---
Author Organization [employer] ([place], [place], [place], [place], [place]) Address [address] [place] [address] Care Team Providers Care Food Service Associate Name Role Phone Jose Brunner MD Primary Care Provider [phone] Allergies Active Allergy Reactions Criticality Noted Date [...] Date Jason rded Speak language other than British at home Not on file 07/03/2023 Want [...] 09/27/2022 12:13 PM EDT Plan of Treatment Health Maintenance Due Date Last Done Comments Depression Screening (12+) 2007 Tobacco Cessation Counseling and Screening (12+) 2007 HIV Screening 08/11/2010 Hepatitis C Screening 08/11/2013 Lipid Panel 2015 Pap Smear 08/11/2016 COVID-19 VACCINE (3 - 2024-2 6 season) 2025 01/29/2021, 01/07/2021 Influenza Vaccine (#1) 2025 05/16/2019 DTAP/TDAP/TD VACCINES (3 - T d or Tdap) 11/17/2031 11/16/2021, 11/03/2006 Pneumococcal Vaccine: 0-49 Years Aged Out No longer eligible b ased on patient's age to complete this topic Insurance [facility] Care Teams Food Service Associate Relationship Specialty Start Date End Date Jose Brunner MD [address] [facility] [address] [place] [address] PCP - General Adolescent Medicine 09/27/22
--- OUTSIDE RECORDS SUMMARY | 2025-06-08 07:27 | XMS_ITS | Data Portability ---
Author Organization [facility] ERNESTINA JohnsonS CONNELL CLOSED Address [address] [place] [address] Care Team Providers Care Logging Supervisor Name Role Phone SOL DIETER Referring Provider [phone] Assessment Encounter Date Assessment Date Assessment LastModified by Organization Details LastModified Time 11/16/2024 11/16/2024 - 29-year-old female with history of kidney stones, presenting with dysuria. - Recurrent UTIs treated with antibiotics. - KUB previously non-confirmatory for calculi. - History suggests further nephrolithiasis or infection evaluation needed. -We discussed need for adequate hydration for UTI prevention and kidney stone prevention [email or web address] Not available 11/19/2024 10:31:53 Plan of Treatment Reminders Order Date Submit Date Provider Last Modified By Organization Details Last Modified Time Details Appointments None recorded. Lab urinalysis panel, auto 2024 025 [email or web address] [facility] [place] [facility], [address], [address], [place], [address], 10:31:20 Referral None recorded. Procedures None recorded. Surgeries None recorded. Imaging CT, abdomen + pelvis, w/o contrast - KIDNEY STONE PROTOCOL MARTHA CHARLES @ 2024 025 [facility], [address], [address], [place], [address], 5 11:39:36 Medication Orders None recorded. Patient TargetsNo targets recorded. Patient Instructions Encounter Date Encounter Id Patient Instructions Last Modified By Organization Details Last Modified Time 11/16/2024 [id number] learning about healthy weight [email or web address] Not available 11/19/2024 10:31:20 - Drink plenty o f water and stay hydrated. - Continue to monitor symptoms, particularly the right flank pain. - Follow up with a CT scan as advised to evaluate kidney stone concerns. - Keep track of any new or worsening symptoms and report them promptly. - Manage pain with rrta-mbe-inprecp pain relief if necessary, following the guidance discussed. [email or web address] Not available 11/16/2024 14:18:39 Reason for Referral None Reported. Results Created Date Observation Date Name Description Value Unit Range Abnormal Flag Note LastModifiedBy Organization Detail LastModifiedTime 11/17/1911/16/2024 urina lysis panel , auto Unknown Analyte Clean Catch Not Available [address] [place], [address], 11/16/2024 14:40:21 11/17/19 25 11/16/2024 urina lysis panel , auto Unknown Analyte Yellow Not Available [address], [place], [address], 11/16/2024 14:40:21 11/17/19 25 11/16/2024 urina lysis panel , auto Unknown Analyte Clear Not Available [address], [place], [address], 11/16/2024 14:40:21 11/17/1911/16/2024 urina lysis panel , auto Unknown Analyte 1.020 Not Available [address] [address] [place], [address], 11/16/2024 14:40:21 11/17/19 25 11/16/2024 urina lysis panel , auto Unknown Analyte 1.003 - 1.030 Not Available [address] [address] [address], [place], [address], 11/16/2024 14:40:21 11/17/19 25 11/16/2024 urina lysis panel , auto Unknown Analyte 6.0 Not Available [facility] With [address], [place], [address], 11/16/2024 14:40:21 11/17/19 25 11/16/2024 urina lysis panel , auto Unknown Analyte 5.0 - 8.0 Not Available [facility] With [address], [place], [address], 11/16/2024 14:40:21 11/17/19 25 11/16/2024 urina lysis panel , auto Unknown Analyte Negati ve Not Available [facility] With [address], [place], [address], 11/16/2024 14:40:21 11/17/19 25 11/16/2024 urina lysis panel , auto Unknown Analyte Negati ve Not Available [facility] With [address], [place], [address], 11/16/2024 14:40:21 11/17/19 25 11/16/2024 urina lysis panel , auto Unknown Analyte Negati ve Not Available [facility] With [address], [place], [address], 11/16/2024 14:40:21 11/17/19 25 11/16/2024 urina lysis panel , auto Unknown Analyte Negati ve Not Available [facility] With [address], [place], [address], 11/16/2024 14:40:21 11/17/19 25 11/16/2024 urina lysis panel , auto Unknown Analyte Negati ve Not Available [facility] With [address], [place], [address], 11/16/2024 14:40:21 11/17/19 25 11/16/2024 urina lysis panel , auto Unknown Analyte Negati ve Not Available [facility] With [address], [place], [address], 11/16/2024 14:40:21 11/17/19 25 11/16/2024 urina lysis panel , auto Unknown Analyte Normal Not Available [facility] With [address], [place], [address], 11/16/2024 14:40:21 11/17/19 25 11/16/2024 urina lysis panel , auto Unknown Analyte Normal Not Available [facility] With [address] [address] [address], [place], [address], 11/16/2024 14:40:21 11/17/19 25 11/16/2024 urina lysis panel , auto Unknown Analyte Negati ve Not Available [facility] With [address] [address], [place], [address], 11/16/2024 14:40:21 11/17/19 25 11/16/2024 urina lysis panel , auto Unknown Analyte Negati ve Not Available [facility] With [address] [address], [place], [address], 11/16/2024 14:40:21 11/17/19 25 11/16/2024 urina lysis panel , auto Unknown Analyte Normal Not Available [facility] [address], [place], [address], 11/16/2024 14:40:21 11/17/19 25 11/16/2024 urina lysis panel , auto Unknown Analyte Normal Not Available [facility] With [address], [place], [address], 11/16/2024 14:40:21 11/17/19 25 11/16/2024 urina lysis panel , auto Unknown Analyte Negati ve Not Available [facility] With [address], [place], [address], 11/16/2024 14:40:21 11/17/19 25 11/16/2024 urina lysis panel , auto Unknown Analyte Negati ve Not Available [facility] With [address], [place], [address], 11/16/2024 14:40:21 11/17/19 25 11/16/2024 urina lysis panel , auto Unknown Analyte Negati ve Not Available [facility] With [address], [place], [address], 11/16/2024 14:40:21 11/17/19 25 11/16/2024 urina lysis panel , auto Unknown Analyte Negati ve Not Available [facility] With [address], [place], [address], 11/16/2024 14:40:21 11/21/19 25 11/20/2024 US, retro perit oneum , limit ed No observ ation record ed. [email or web address] [facility] [address], [place], [address], 11/27/2024 12:04:50 11/28/19 25 11/27/2024 CT, abdom en + pelvi s, w/o contr ast No observ ation record ed. [email or web address] [facility] [address], [place], [address], 12/04/2024 09:33:35 Result Notes None recorded. Procedures Surgical History Date Name Laterality Status Provider Name and Address Organization Details Recorded Time section completed [facility] 11/16/2024 14:36:55 [facility] 11/16/2024 14:37:04 dilation and curettage of cervical stump [facility] 11/16/2024 14:37:28 Imaging Results None recorded. Procedure Notes None recorded. Medical Equipment None Reported. Allergies Allergen ID Allergen Name Allergen Category Reaction Reaction Severity Criticality Documentation Date Start Date Code Code System Note Provider Name and Address Organization Details Recorded Time 611946 Phenergan medicatio n Not available Not available Not available 11/16/2024 88250 8 RxNorm Venkatesh Krishnamurthy [facility] 14:32:36 095542 Compazine medicatio n Not available Not available Not available 11/16/2024 85482 6 RxNorm [facility] Krish[facility]urthy [facility] 14:32:44 Medications Name Sig Start Date Stop Date Status Note LastModified by Organization Details LastModified Time Spironazide 25 mg-25 mg tablet Take 1 tablet every day by oral route. active Not Available Not Available No t Available lamotrigine active Not Available Not A vailable Not Available Zyrtec active Not Available Not Availa ble Not Available Probiotic active Not Available Not June ilable Not Available Vitals Date Recorded Body height Body mass index (BMI) Body weight Provider Name and Address Organization Details Last Updated DateTime 11/16/2024 157.48 cm 39 kg/m2 00032.17 g [facility] 11/16/2024 14:32:11 Social History Question Answer Notes LastModified by Organizat ion Details LastModified Time Tobacco Smoking Status Never Smoker Venkatesh Krishnamurthy [facility] 11/16/2024 14:36:44 What Was The Date Of Your Most Recent Tobacco Screening? 11/16/2024 Information not available 11/16/2024 Sex: Female Functional Status Question Answer Note LastModified by Organization D etails LastModified Time What is your level of alcohol consumption? None Information not available 11/16/2024 Mental Status None recorded. Family History Relationship Description Onset Age of this Age Resolved Age Notes LastModified by Organization Details LastModified Time Unspecified Relation Family history of malignant neoplasm of prostate ton Not available 2024 14:36:11 Maternal Grandmother Diabetes mellitus ton Not available 2024 14:36:19 Maternal Grandmother Family history of malignant neoplasm ton Not available 2024 14:36:29 Medical History Condition Response Coronary Artery Disease N Other N Gout N Kidney Stones Y Kidney Cyst N Enlarged Prostate N Heart Arrhythmia N Emphysema N Erectile Dysfunction N Head Trauma/Injury N Sexually Transmitted Disease Y Depression Y Pneumonia N Incontinence N Prostate Problems N Cancer Prostate N Paralysis N Anxiety Disorder Y Hemorrhoids N Obesity Y Arthritis Y Infertility Y Acid Reflux (GERD) N Hematuria N Cancer N Stroke N Neck Injury N Previous Radiation Therapy? N Neurologic Disorder N Kidney Disease N Heart Conditions N Kidney or Bladder Problems Y If you get up at night to urinate, how m any times? N Urinary Problems Y Constipation N Brain Injury N Ulcers N Do you get up at night to urinate? N Prostate Hypertrophy N Low Testosterone N Tuberculosis N Previous Chemotherapy? N AIDS/HIV N BPH N Urinary Tract Infection Y Asthma Y Cardiac Disease N Thyroid Disorder N Hepatitis N PCOS Y Colon Cancer N Hernia N Colon/Rectal Disorders N Ostomy N Glaucoma N Pacemaker N Anesthesia Complications N Genitourinary Disease N Chronic Kidney Disease N Radiation Therapy N Bladder or Kidney Problems Y Back Injury Y High Cholesterol N High PSA N Liver Disease N Nervous System Disorder N Organ Transplant N Dialysis N Allergies/Hayfever Y False Teeth N Chronic Obstructive Pulmonary Disease N Parkinson's Disease N Chemotherapy N Anemia N Transplant N Chest Pain N Back Pain Y Multiple Sclerosis N Proteinuria N Heart Attack (DE) N Mental Illness Y Diabetes N Ovarian Cancer N Seizures/Epilepsy N Genitourinary problem(s) N Congestive Heart Failure (CHF) N Kidney Failure N Sleep Apnea Y Bronchitis N Heart Disease N Hypertension N Gynecological History Statement/Question Response Female Hormone Problem N # of Pregnancies 3 Abnormal Periods N # of Births 1 Could you be now? N Current Control Method bcps Uterus/Ovaries Problem N Obstetrics History GPAL:G 0 P 0 0 0 0 Past Encounters Encounter ID Performer Location Encounter Start Date Encounter Closed Date Diagnosis/Indication Diagnosis SNOMED-CT Code Diagnosis ICD10 Code Diagnosis IMO Codes Diagnosis Note [id number] SVETLANA THRASHER MD [facility] [address] [facility] [place] [address] 11/16/2024 13:44:45 11/16/2024 16:02:49 Kidney stone 19041585 N20.0 40437 - Ordered CT scan for better imaging - Educate on hydration, pain management Renal colic 0994100 N23 979376 - Monitor symptoms; arrange follow-up imaging Recurrent urinary tract infection 324558980 N39.0 422360 - Evaluate antibiotic treatment effectiven ess Health Concerns Section Related Observation LastModified by Organization Detai ls LastModified Time None Recorded Concern Status LastModified by Organization Details LastModified Time None Recorded Advance Directives Directive None Recorded Payers Insurance Date Sequence Insurance Name Policy Number Policy Day Covered Member ID Day Member ID Guarantor Name 11/20/2024 1 [employer] [id number] Martha Charles [id number] Martha Charles Notes Date Note Type Note Provider Name and Address Organization Details Recorded Time 11/16/2024 text/html The patient is a 29-year-old female presenting with dysuria. The patient reports a three-month history of dysuria treated with sequential antibiotics. Past KUB imaging showed no urolithiasis. She mentions recurrent right flank pain with radiation to the lower right quadrant and a history of kidney stones, previously requiring endoscopic retrieval. Her urine is noted to be cloudy with an unusual smell resembling altered urine of prednisone. She reports substantial daily water intake. She details past treatments with multiple antibiotics, including Macrobid, Ciprofloxacin, and Bactrim, and positive urine cultures for E. coli. - Urinalysis: Results reportedly normal today - KUB imaging: No obvious urolithiasis observed SVETLANA THRASHER MD [facility] [place], [address], [facility] 11/19/2024 10:31:57 OBGyn Episode No OBEpisode recorded.
--- NOTE | 2025-06-08 07:30 | MR_ITS ---
FINAL REPORT CLINICAL HISTORY: Evaluation of Left Foot Pain/Trauma pain around heel nki medial and lateral sided ankle pain swelling COMPARISON: None FINDINGS: Multiplanar MR imaging of the left foot was performed without contrast. The bony structures are intact without evidence of fracture, bone bruise or marrow edema. The flexor and extensor tendons are intact. No ligamentous injury is identified. The musculature is intact. The plantar aponeurosis is intact. No soft tissue mass or cyst is identified. IMPRESSION: No acute bony abnormality identified. Reviewed, Interpreted and Dictated by Tracy Meeks MD Transcribed by Judith Doherty Authenticated and [facility]
== END 2025-06-08 23:59 | disposition home or self-care (01) ==
LOC: RAD 07:25
PROVIDERS: PCP Nurse Practitioner; Visit Provider Podiatrist
DX: S96.912D Strain of unspecified muscle and tendon at ankle and foot level, left foot, subsequent encounter (principal); M84.375S Stress fracture, left foot, sequela; M76.822 Posterior tibial tendinitis, left leg; X58.XXXD Exposure to other specified factors, subsequent encounter
CPT/HCPCS: 73718